=== PATIENT | female | born 1940 | race Caucasian/White ===

== ENCOUNTER 2016-09-25 09:07 | Outpatient (CLI) ==
[2015-10-11 08:43] VITALS: BMI 21.6
--- NOTE | 2016-09-26 10:23 | MAMMO ---
EXAM: Digital screening mammogram HISTORY: Screening COMPARISON: 09/21/2015 FINDINGS: Digital MLO and CC views of the right and left breast were performed. There are scatter ed fibroglandular densities. Stable benign bilateral calcifications. There is no evidence for mass , asymmetry, distortion, or suspicious calcifications in either breast. IMPRESSION: 1. No evidence of malignancy in the right or left breast. 2. Annual screening mammogram is recommended in one year. BIRADS category 2, benign
== END 2016-09-25 09:08 | disposition home or self-care (01) ==
LOC: RAD 09:07
PROVIDERS: ATTEND Internal Medicine
DX: Z12.31 Encounter for screening mammogram for malignant neoplasm of breast (principal)

== ENCOUNTER 2016-11-21 13:49 | Outpatient (CLI) | payer OTHER ==
[2015-10-11 08:43] VITALS: BMI 21.6
--- NOTE | 2016-11-21 14:31 | DI ---
Exam: Lumbar spine complete with obliques. HISTORY: Low back pain. Comparison: 01/22/2008. Findings: Anterior, lateral, coned-down and bilateral oblique images of the lumbar spine are submit carisa. These demonstrate five [id number], lumbarized vertebrae with no compression fracture or l isthesis. There is multilevel moderate degenerative disc and facet arthropathy. The facet joints a ppear grossly aligned and intact. Atherosclerotic calcifications are noted. Impressions: Moderate degenerative disc and facet arthropathy in the lumbar spine with no compressi on fracture or listhesis. Atherosclerosis.
== END 2016-11-21 13:50 | disposition home or self-care (01) ==
LOC: RAD 13:49
PROVIDERS: ATTEND Physical Medicine & Rehabilitation
DX: M54.5 Low back pain (principal)

== ENCOUNTER 2016-12-27 11:00 | Outpatient (RCR) ==
[2015-10-11 08:43] VITALS: BMI 21.6
--- NOTE | 2016-12-19 11:01 | RS.OPPTEV2 ---
Date of Note: 12/18/16 Visit #: 1 Date of Evaluation: 12/18/16 Payer Source: MEDICARE Treatment Diagnosis: Bilateral hip and back pain History of Condition/Mechanism of Injury:: Patient reports onset of hip and back pain in June 2016 with no injury. Does report a fall on her tailbone, resulting in a coccyx fracture in September 2015. Prior Level of Function.....Patient was independent with: ADL's, Self Care, Caregiving, Ambulation/Mobility, Community Integration/Access Level of Function: Patient works out a few times a week at [employer]. Functional Limitations: Sleep, ADL's, Sitting, Standing, Bending, Ambulation Current Subjective/complaints:: Patient reports low back and hip pain. States right hip is worse than the left. She denies tingling or numbness in the LE's. States her pain is bad in the morning, to where she can hardly walk. States she does better as she gets moving around. States being in one position, such as sitting, cause pain and stiffness. States her sleep is interrupted at night. Reports only getting about half a nights sleep. Reports she wakes up with pain. Reports no recent falls. States she used to be able to walk a few miles on a treadmill, but does not tolerate walking that long now due to pain and fatigue in the back/hips. Medical History Medical History: Hypertension, COPD, Arthritis Surgical History: Cholecystectomy, Hysterectomy Smoking Status: Current every day smoker Hx Home Medications: Daypro Patient's Goals: Her goal is to get relief of back and and hip pain. Pain Assessment - Pain Description Pain Location: hip and low back pain Current Pain Intensity: not rated Worst Pain Intensity: 10/10 Functional Outcome Measure Oswestry LBP: 46 - G Codes & Severity Modifier G Codes & Modifier: Mobility current CK. Mobility goal CI Source of G Code score: Oswestry LBP scale Observation - Observation Posture: Forward Head, Increased Thoracic Kyphosis, Decreased Lumbar Lordosis, Posterior Pelvic Tilt Gait - Gait Pattern General Gait Pattern Observation: No Deviations/Normal - ROM Comments: Lumbar AROM is WFL's. Bilateral LE AROM is also WFL's. - Strength Trunk Lateral Flexion: 4 Good Trunk Rotation: 4 Good Comments: Left hip generally 4/5 throughout. All else of bilateral LE strength 4+ to 5/5 throughout. - Special Tests ALEAH Test: Negative Right, Positive Left SLR Test: Negative Left, Negative Right Seated Dural Stretch Test: Negative Left, Negative Right SI Joint Compression: Negative Palpation Comments:: Patient reports no tenderness with palpation throughout the lumbar spine, paraspinals, or SI joints. Reports no tenderness to either greater trochanter. Sensation - Sensation Comments: intact throughout bilateral LE's. Additional Comments: Additional Comments: SLR in supine: right 50 degrees, left 40-45 degrees. Left LE appears shorter in supine. This leg lenght difference is reduced with stretching to the left HS. Interventions - Exercise/Activities/Manual Therapy Exercises/Activities: Instructed patient in HS and piriformis stretch and resisted hip abduction with green theraband. Manual Therapy: NA HOME EXERCISE PROGRAM: HS and piriformis stretch and resisted hip abduction with green theraband. - Charges Total Direct Minutes: 45 mins Total Treatment Time: 45 mins Procedures billed for this date of service:: EVAL Low Assessment Assessment: Patient presents to therapy with a diagnosis of Low pelvic pain with bilateral radiation. She reports back and bilateral hip pain. States the right hip is worse than the left. She exhibits an imbalance in LE strength and muscle length. Left HS is tighter and left hip is weaker than the right. She demonstrates potential to benefit from stretching to the low back and LE's, and strengthening to the hips and lumbar/pelvis for increased stability. Patient Education: Education of diagnosis, Body/Joint mechanics, Home Exercise Program, Activity Modification, Education of Plan of Care Rehab Potential: Good Short Term Goals Goal #1: Pt independent and compliant with HEP. Goal to be met by: 01/02/17 Goal #2: Bilateral SLR in supine to 50-55 degrees. Goal to be met by: 01/02/17 Goal #3: Left hip flexion 4+/5. Goal to be met by: 01/02/17 Alf Goals Goal #1: Pt independent in HEP and education of back safety/body mechanics. Goal to be met by: 01/28/17 Goal #2: Score on Oswestry LBP scale improved to 20. Goal to be met by: 01/28/17 Goal #3: Pt able to sleep 6 hours per night without interruption from back/hip pain. Goal to be met by: 01/28/17 Goal #4: Pt able to tolerate prolonged sitting with only minimal back/hip discomfort Goal to be met by: 01/28/17 Plan - Treatment to be Provided Procedures: Therapeutic Exercises, Therapeutic Activity, Patient Education Modalities: Electrical Stimulation, Ultrasound/Phonophoresis, Cryotherapy, Hot Packs - Treatment Plan Frequency: 3 X week Duration: 4 weeks ORDER # VISITS AND/OR THROUGH DATE: 01/28/17 - Treatment Code (1) Hip pain Code(s): M25.559 - PAIN IN UNSPECIFIED HIP Qualifiers: Laterality: bilateral Qualified Code(s): M25.551 - Pain in right hip; M25.552 - Pain in left hip (2) SI (sacroiliac) joint dysfunction Code(s): M53.3 - SACROCOCCYGEAL DISORDERS, NOT ELSEWHERE CLASSIFIED Comments: M53.2X7
--- NOTE | 2016-12-20 12:05 | RS.OPPTDN ---
Subjective Date of Note: 12/20/16 Visit #: 2 Date of Evaluation: 12/18/16 Payer Source: MEDICARE Treatment Diagnosis: Bilateral hip and back pain Current Subjective/complaints:: Reports pain around S-I and into hips after sitting long periods or fwhen getting out of bed in the morning. Pain Assessment - Pain Description Pain Location: hip and low back pain Current Pain Intensity: mild, no pain after treatment - Treatment Parameters/Method Applied: [id number] @ 1.5w/cm2 to the bilateral lowback, S-I joint and upper glut areas. Patient Position: Right Sidelying Interventions - Exercise/Activities/Manual Therapy Exercises/Activities: [id number]. Patient assisted with hamstring, piriformis, SKTC , and trunk rotation. MET with isometric hip extension on the right. Resisted hip abduction with green theraband. Isometric hip adduction. Isometric hip flexion. Bridging. Total minutes of Exercise: 25mins Manual Therapy: NA HOME EXERCISE PROGRAM: HS and piriformis stretch and resisted hip abduction with green theraband. Isometric hip flexion. Isometric hip add. Bridging. - Objective Findings Observations,measurements,etc.: Patient demos right LE longer that left by approx 1/2 inch, resolved with MET. - Charges Total Direct Minutes: 39mins Total Treatment Time: 40mins Procedures billed for this date of service:: EX2, US Assessment: Patient motivated to work on HEP. Verbalizes understanding of patient education. Patient Education: Education of diagnosis, Body/Joint mechanics, Home Exercise Program, Home Safety, Activity Modification Comments: Patient education of dx, body mechanics, safety, and HEP. Patient given copies of HEP. Patient demonstrates compliance with HEP?: Yes Short Term Goals Goal #1: Pt independent and compliant with HEP. Goal to be met by: 01/02/17 Progress towards Goal:: Progressing Goal #2: Bilateral SLR in supine to 50-55 degrees. Goal to be met by: 01/02/17 Goal #3: Left hip flexion 4+/5. Goal to be met by: 01/02/17 [place] [employer] Member Goals Goal #1: Pt independent in HEP and education of back safety/body mechanics. Goal to be met by: 01/28/17 Goal #2: Score on Oswestry LBP scale improved to 20. Goal to be met by: 01/28/17 Goal #3: Pt able to sleep 6 hours per night without interruption from back/hip pain. Goal to be met by: 01/28/17 Goal #4: Pt able to tolerate prolonged sitting with only minimal back/hip discomfort Goal to be met by: 01/28/17 Plan PLAN OF CARE EXPIRES ON:: 01/28/17 ORDER # VISITS AND/OR THROUGH DATE: 01/28/17 PLAN: Progress Exercises (Continue modalities as needed while progressing exercise increase functional activity level.)
--- NOTE | 2016-12-24 12:03 | RS.OPPTDN ---
Subjective Date of Note: 12/24/16 Visit #: 3 Date of Evaluation: 12/18/16 Payer Source: MEDICARE Treatment Diagnosis: Bilateral hip and back pain Current Subjective/complaints:: Patient reports pain in the right hip is better , but pain is aggravated in the left hip since last session. Reports she is working on HEP and continues to go to the gym. Pain Assessment - Pain Description Pain Location: hip and low back pain Current Pain Intensity: mild to mod discomfort left today, mild after treatment - Treatment Modality: Ultrasound Parameters/Method Applied: [id number] at 1.5w/cm2 to the bilateral lower lumbar paraspinals, S-I joints, and bilateral mid to upper gluteal areas with focus on left today. Patient Position: Right Sidelying Interventions - Exercise/Activities/Manual Therapy Exercises/Activities: [id number]. Patient assisted with hamstring and SKTC stretching only. MET with left isometric hip extension today, which resloves leg length difference. Isometric hip adduction. Isometric hip flexion. Bridging. Total minutes of Exercise: 15mins Manual Therapy: NA HOME EXERCISE PROGRAM: HS and piriformis stretch and resisted hip abduction with green theraband. Isometric hip flexion. Isometric hip add. Bridging. - Charges Total Direct Minutes: 29mins Total Treatment Time: 32mins Procedures billed for this date of service:: US, EX Assessment: Reduced exercise session today due to patients reports of increased hip pain. Advised patient to continue to work on bridging for pelvic alignment. Patient Education: Body/Joint mechanics, Home Exercise Program, Activity Modification Comments: Patient education of body mechanics, safe lifting, and HEP. Patient demonstrates compliance with HEP?: Yes Short Term Goals Goal #1: Pt independent and compliant with HEP. Goal to be met by: 01/02/17 Progress towards Goal:: Progressing Goal #2: Bilateral SLR in supine to 50-55 degrees. Goal to be met by: 01/02/17 Goal #3: Left hip flexion 4+/5. 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 Goal to be met by: 01/28/17 Goal #2: Score on Oswestry LBP scale improved to 20. Goal to be met by: 01/28/17 Goal #3: Pt able to sleep 6 hours per night without interruption from back/hip pain. Goal to be met by: 01/28/17 Progress towards goal: No Change (Reports she did not sleep well last night.) Goal #4: Pt able to tolerate prolonged sitting with only minimal back/hip discomfort Goal to be met by: 01/28/17 Plan PLAN OF CARE EXPIRES ON:: 01/28/17 ORDER # VISITS AND/OR THROUGH DATE: 01/28/17 PLAN: Progress Exercises (Continue modalities and progress exercise to reduce pain and increase functional activity level.)
--- NOTE | 2016-12-27 12:03 | RS.OPPTDN ---
Subjective Date of Note: 12/27/16 Visit #: 4 Date of Evaluation: 12/18/16 Payer Source: MEDICARE Treatment Diagnosis: Bilateral hip and back pain Current Subjective/complaints:: Patient denies LBP today. She reports bilateral lateral hip pain being aggravated today. Reports she is working on HEP and reports pain resolved after modalities and stretching. Pain Assessment - Pain Description Pain Location: hip and low back pain Current Pain Intensity: mod bilateral hip pain, no pain following treatment - Treatment Modality: Ultrasound Parameters/Method Applied: 10mins total. US at 1.5w/cm2 x5mins to each lateral hip joint area prior to EX. Patient in side-lying for each US. Patient Position: Left Sidelying Interventions - Exercise/Activities/Manual Therapy Exercises/Activities: [id number]. Patient assisted with hamstring and SKTC stretching. Gentle piriformis and ITB stretching. Isometric hip adduction. Isometric hip flexion. Bridging. Began standing ITB stretching. Paitent education of safety with ADL's and alternate hamstring stretching. Patient given copy of new exercise. Total minutes of Exercise: 15mins Manual Therapy: NA HOME EXERCISE PROGRAM: HS and piriformis stretch and resisted hip abduction with green theraband. Isometric hip flexion. Isometric hip add. Bridging. - Charges Total Direct Minutes: 25mins Total Treatment Time: 30mins Procedures billed for this date of service:: US, EX Assessment: Patient appears to be consisitently working on HEP and reports LBP has resolved. She should benefit from US to lateral hip joints and gentle ITB stretching. Patient Education: Body/Joint mechanics, Home Exercise Program, Activity Modification Patient demonstrates compliance with HEP?: Yes Short Term Goals Goal #1: Pt independent and compliant with HEP. Goal to be met by: 01/02/17 (100%) Progress towards Goal:: Met Goal #2: Bilateral SLR in supine to 50-55 degrees. Goal to be met by: 01/02/17 Progress towards Goal:: Progressing Goal #3: Left hip flexion 4+/5. Goal to be met by: 01/02/17 Progress towards Goal:: Progressing It Security Project Manager Goals Goal #1: Pt independent in HEP and education of back safety/body mechanics. Goal to be met by: 01/28/17 Progress towards goal: Progressing Goal #2: Score on Oswestry LBP scale improved to 20. Goal to be met by: 01/28/17 Goal #3: Pt able to sleep 6 hours per night without interruption from back/hip pain. Goal to be met by: 01/28/17 Progress towards goal: Progressing Goal #4: Pt able to tolerate prolonged sitting with only minimal back/hip discomfort Goal to be met by: 01/28/17 Progress towards goal: Progressing Plan PLAN OF CARE EXPIRES ON:: 01/28/17 ORDER # VISITS AND/OR THROUGH DATE: 01/28/17 PLAN: Progress Exercises (Continue modalities and progress exercise to reduce pain and increase functional activity level.)
== END 2016-12-29 ==
PROVIDERS: ATTEND Physical Medicine & Rehabilitation
DX: R10.2 Pelvic and perineal pain (principal); M25.552 Pain in left hip; M25.551 Pain in right hip; M53.2X7 Spinal instabilities, lumbosacral region; M53.3 Sacrococcygeal disorders, not elsewhere classified

== ENCOUNTER 2017-02-18 09:05 | Outpatient (CLI) ==
[2015-10-11 08:43] VITALS: BMI 21.6
--- NOTE | 2017-02-18 13:51 | MRI ---
EXAM: MRI lumbar spine without IV contrast. DATE: 18 February 2017. HISTORY: Low back pain. TECHNIQUE: Sagittal and axial T1W and T2W sequences of the lumbar spine along with sagittal IR and c oronal T2W sequences were obtained using 1.2 Xi magnet. No IV contrast. COMPARISON: LS spine series [address] L-spine [address] chest 20 December 2014.. FINDINGS: There are five [id number]-jzysefp lumbar vertebra. No lumbar scoliosis is detected. No acut e lumbar fracture, subluxation, osseous malignancy, or pars interarticularis defect is demonstrated. Prominent osteophytes are identified at L1-2, L4-5, and L5-S1, with smaller osteophytes at several o ther levels. Lumbar vertebra are normal in height. T2W/T1W bone marrow signal is heterogeneous due to areas of fatty infiltration and degenerative endplate changes. Mild disc space narrowing is detec carisa at L4-5 and L5-S1. Small, chronic Schmorl's nodes are seen at L2, L3, L4, L5. No sacral fracture or stress reaction is apparent. SI joints are unremarkable. Conus medullaris terminates at L2. Vis ible spinal cord is normal. No retroperitoneal lymphadenopathy, paraspinal mass, or aortic aneurysm is detected. Atherosclerotic plaques are present within the aortic and common iliac artery garcia. Paraspinal musculature is symm etric bilaterally. Visible portions of the liver, spleen, adrenal glands and kidneys reveal no defin itive malignancy. Note: No IV contrast. A T2W bright, T1W dark, 2.1 mm focus in the medial cortex upper pole right kidney is likely a benign cyst. CBD is 9.8 mm diameter. No choledocholithiasis or intraluminal CBD mass is detected. Gallbladder is not visible. Segmental analysis: T11-12: Normal. T12-L1: Normal. L1-2: Normal. L2-3: Minimal concentric disc bulge, mild bilateral facet arthropathy, and mild ligamentum flavum hy pertrophy cause moderate central canal stenosis and minor bilateral inferior foraminal encroachment. L3-4: Small concentric disc bulge, moderate bilateral facet arthropathy, and marked ligamentum flavu m hypertrophy cause severe central canal stenosis and mild bilateral foraminal stenoses. L4-5: Large concentric disc bulge, mild facet arthropathy, and mild ligamentum flavum hypertrophy ca use moderate central canal stenosis and moderate bilateral foraminal stenoses. L5-S1: Small concentric disc bulge and mild left facet arthropathy cause minor right and moderate le ft foraminal stenoses. Left L5 nerve root contacts the disc bulge in the foramen. IMPRESSIONS: 1. L-spine marked spondylosis, mild/moderate facet arthropathy, and multilevel DDD. 2. Multilevel central canal stenoses (L2-3: Moderate. L3-4: evere. L4-5: Moderate). 3. Multilevel foraminal stenoses. Left L5 nerve roots compromised in the foramen and may be a sourc e for pain/radiculopathy. 4. Bone marrow fatty infiltration (mild). 5. L-spine small, old Schmorl's nodes. 6. Marked aortic and iliac artery ASVD. 7. Right kidney benign-appearing cortical cyst. 8. 9.8 mm CBD -- normal for post cholecystectomy.
== END 2017-02-18 09:06 | disposition home or self-care (01) ==
LOC: RAD 09:05
PROVIDERS: ATTEND Physical Medicine & Rehabilitation
DX: M54.5 Low back pain (principal)

== ENCOUNTER 2017-09-27 09:33 | Outpatient (CLI) ==
[2015-10-11 08:43] VITALS: BMI 21.6
--- NOTE | 2017-09-27 11:06 | MAMMO ---
EXAM: Digital screening mammogram with tomosynthesis HISTORY: Screening COMPARISON: 09/25/2016 FINDINGS: Digital MLO and CC views of the right and left breast were performed. Tomosynthesis was performed. Computer aided detection utilized. There are scattered fibroglandular densities. Benign bi lateral calcifications. There is no evidence for mass, asymmetry, distortion, or suspicious calcifica tions in either breast. IMPRESSION: 1. No evidence of malignancy in the right or left breast. 2. Annual screening mammogram is recommended in one year. BIRADS category 2, benign
== END 2017-09-27 09:34 | disposition home or self-care (01) ==
LOC: RAD 09:33
PROVIDERS: ATTEND Internal Medicine
DX: Z12.31 Encounter for screening mammogram for malignant neoplasm of breast (principal)
CPT/HCPCS: 77067

== ENCOUNTER 2017-10-14 10:10 | Inpatient (IN) | payer OTHER ==
[2017-10-14] MEDS ORDERED: DUONEB NEB ONE (10:12)
--- NOTE | 2017-10-14 10:19 | ED.PDOC ---
General ED Provider: Dr. SHEILA STALEY Chief Complaint: Shortness of Air Stated Complaint: Short of Air Time Seen by Physician: 10:10 Mode of Arrival: Walk-In Information Source: Patient Exam Limitations: No limitations Primary Care Provider: FERNANDEZ VILLAGOMEZ Nursing and Triage Documentation Reviewed and Agree: Yes Does patient meet sepsis criteria?: No System Inflammatory Response Syndrome: Pulse >90 BPM, Resp >20/Minute Sepsis Protocol: For patient's 13 years and over: Temp is 96.8 and below OR 101 and greater Pulse >90 BPM Resp >20/minute Acutely Altered Mental Status Are patient's symptoms suggestive of a new infection, such as: -Pneumonia -Skin, Soft Tissue -Endocarditis -UTI -Bone, Joint Infection -Implantable Device -Acute Abdominal Infection -Wound Infection -Meningitis -Blood Stream Catheter Infection -Unknown Review of Systems - Review Of Systems Constitutional: Reports: Weakness (Says from [place] - not eating well; is hungry now) Respiratory: Reports: Short of air Cardiac: Reports: No symptoms : Reports: No symptoms All Other Systems: Reviewed and Negative Past Medical History - Past Medical History Endocrine: Reports: None Cardiovascular: Reports: Hypertension Respiratory: Reports: Bronchitis, Pneumonia Hematological: Reports: None Gastrointestinal: Reports: Diverticulitis Genitourinary: Reports: None Neuro/Psych: Reports: Anxiety Musculoskeletal: Reports: None Cancer: Reports: None - Surgical History General Surgical History: Reports: Hysterectomy, Cholecystectomy, Other ( hemorrhoidectomy) - Family History Family History: Reports: Unknown - Social History Smoking Status: Current some day smoker, Light tobacco smoker Hx Substance Use: No Alcohol Screening: None Physical Exam - Physical Exam Appearance: Well-appearing ENT: Ears normal, Nose normal Neck: Supple Respiratory: Airway patent, Breath sounds equal, Breath sounds diminished, Wheezes Cardiovascular: RRR, Pulses normal GI/: Soft, Nontender, No masses Musculoskeletal: Normal strength, ROM intact, No edema Skin: Warm, Dry, Normal color Neurological: Sensation intact, Motor intact, Alert, Oriented Psychiatric: Affect appropriate, Mood appropriate Interpretation - Radiology Interpretation Radiology Interpretation By: ED Physician Radiology Results: Positive (Bilateral perihilar infiltrates) Exam Interpreted: Portable CXR - EKG Interpretation Rate: Normal Rhythm: Sinus Ectopy: None Bock: NL ST Segment: Normal Physician Notification - Case Discussed Physician Notified: Dr Villagomez Time of Notification: 12:20 (Discussed pt findings; admission indicated for Pneumonia/Short of Air) Critical Care Note - Critical Care Note Total Time (mins): 45 (Short of Air) Comments: Short of Air; saw Saturday - started on ABX - more difficulty today led to ER visit. CXR read by radiologist = Bilateral perihilar pneumonia. Admitted for treatment. Course - Course Hematology/Chemistry: 10/14/17 11:30 10/14/17 11:30 Orders, Labs, Meds: Lab Review 10/14/17 10/14/17 10/14/17 10:16 11:30 11:30 WBC 11.92 H RBC 4.67 Hgb 14.3 Hct 41.5 MCV 88.9 MCH 30.6 MCHC 34.5 RDW Coeff of [place] 13.7 Plt Count 261 Immature Gran % (Auto) 0.5 Neut % (Auto) 88.8 Lymph % (Auto) 4.9 L Harris % (Auto) 5.6 Eos % (Auto) 0.0 Baso % (Auto) 0.2 Immature Gran # (Auto) 0.1 Neut # (Auto) 10.6 H Lymph # (Auto) 0.6 [place] # (Auto) 0.7 Eos # (Auto) 0.0 Baso # (Auto) 0.0 Puncture Site Rrad O2 Saturation 91.0 L ABG pH 7.472 H ABG pCO2 41.9 ABG pO2 57.0 L* ABG HCO3 30.7 H ABG Total CO2 32 H ABG Base Excess 7 H [place] Test + FiO2 % 21.0 Sodium 127 L Potassium 3.0 L Chloride 86 L Carbon Dioxide 32 H Anion Gap 12.0 BUN 9 Creatinine 0.58 L Estimated GFR (MDRD) 101.00 BUN/Creatinine Ratio 15.51 Glucose 117 H Calcium 9.3 Total Bilirubin 0.9 AST 14 L ALT 20 Alkaline Phosphatase 71 Total Protein 6.4 Albumin 3.3 L Globulin 3.1 Albumin/Globulin Ratio 1.06 Orders Category Date Time Status ADMIT PATIENT INPATIENT .TO [facility] (MONITORED BED) ADMISSION 10/14/17 12: 44 Active ABG DRAW REQUEST Stat CARDIO 10/14/17 10:16 Completed EKG-(ED ONLY) Stat CARDIO 10/14/17 10:40 Completed EKG-(IP & OP ONLY) DAILY CARDIO 10/15/17 06:00 Ordered EKG-(IP & OP ONLY) DAILY CARDIO 10/16/17 06:00 Ordered NEBULIZER TREATMENT Routine CARDIO 10/14/17 12:34 Active NEBULIZER TREATMENT Stat CARDIO 10/14/17 10:41 Completed OXYGEN Routine CARDIO 10/14/17 12:28 Active ACTIVITY .BR with BRP CARE 10/14/17 12:26 Active INTAKE & OUTPUT Q8HR CARE 10/14/17 12:26 Completed TELEMETRY MONITORING TELE CARE 10/14/17 12:44 Active VITAL SIGNS Q8HR CARE 10/14/17 12:26 Completed REGULAR DIET DIETARY 10/14/17 Lunch Ordered ABG Stat LAB 10/14/17 10:16 Completed CBC W/ AUTO DIFF DAILY@0600 LAB 10/15/17 06:00 Ordered CBC W/ AUTO DIFF DAILY@0600 LAB 10/16/17 06:00 Ordered CBC W/ AUTO DIFF Stat LAB 10/14/17 11:30 Completed COMPREHENSIVE METABOLIC PANEL DAILY@0600 LAB 10/15/17 06:00 Ordered COMPREHENSIVE METABOLIC PANEL DAILY@0600 LAB 10/16/17 06:00 Ordered COMPREHENSIVE METABOLIC PANEL Stat LAB 10/14/17 11:30 Completed Albuterol Sulfate 0.083% Neb [Albuterol 0.083% Neb] MEDS 10/14/17 14:00 Active 1 vial NEB RTQID Azithromycin Inj [Zithromax] 500 mg MEDS 10/14/17 13:00 Active 0.9 % Sodium Chloride [Sodium Chloride] 250 ml IV DAILY Ceftriaxone Sodium [Rocephin] MEDS 10/14/17 12:46 Discontinued 1 gm .ROUTE .STK-MED ONE Ceftriaxone Sodium [Rocephin] 1 gm MEDS 10/14/17 12:30 Active 0.9 % Sodium Chloride [Sodium Chloride] 50 ml IV DAILY Enoxaparin Sodium [Lovenox] MEDS 10/15/17 09:00 Active 40 mg SUBCUT DAILY Ipratropium/Albuterol Neb [Duoneb] MEDS 10/14/17 10:12 Discontinued 1 vial NEB .STK-MED ONE Ipratropium/Albuterol Neb [Duoneb] MEDS 10/14/17 10:41 Discontinued 1 vial NEB ONCE STA Losartan/Hydrochlorothiazide [Hyzaar 50-12.5 mg Tab] MEDS 10/14/17 13:00 Discontinued 1 tab PO DAILY Losartan/Hydrochlorothiazide [Losartan-Hctz 100-25 mg MEDS 10/14/17 12:45 Discontinued Tab] 0.5 each PO 0600 Methylprednisolone Sod Succ/Pf [Solu-Medrol 40 mg] MEDS 10/14/17 13:00 Active 40 mg IVP Q8HR Omeprazole [Prilosec] MEDS 10/14/17 12:34 Active 20 mg PO QDAC PRN Sodium Chloride 0.9% [Sodium Chloride] 1,000 ml MEDS 10/14/17 12:30 Active IV 75 mls/hr RESUSCITATION STATUS Routine OTHERS 10/14/17 12:26 Ordered CHEST, 1V AP ONLY Stat RADS 10/14/17 10:47 Completed Medications Generic Name Dose Route Start Last Admin Trade Name Freq PRN Reason Stop Dose Admin Albuterol Sulfate 1 vial 10/14/17 14:00 10/14/17 14:23 Albuterol 0.083% Neb NEB 1 vial RTQID YESSENIA Administration Enoxaparin Sodium 40 mg 10/15/17 09:00 Lovenox SUBCUT DAILY YESSENIA Ceftriaxone Sodium 1 gm/ 50 mls @ 75 mls/hr 10/14/17 12:30 10/14/17 12:55 Sodium Chloride IV 75 mls/hr DAILY YESSENIA Administration Sodium Chloride 1,000 mls @ 75 mls/hr 10/14/17 12:30 10/14/17 13:55 Sodium Chloride IV 75 mls/hr .[id number] YESSENIA Administration Azithromycin 500 mg/ Sodium 250 mls @ 125 mls/hr 10/14/17 13:00 10/14/17 13: 57 Chloride IV 10/16/17 10:59 125 mls/hr DAILY YESSENIA Administration Methylprednisolone Sodium Succinate 40 mg 10/14/17 13:00 Solu-Medrol 40 Mg IVP Q8HR YESSENIA Non-Formulary Medication 5 mg 10/14/17 19:00 Bisoprolol Fumarate [Bisoprolol Fumarate] PO 1900 YESSENIA Non-Formulary Medication 0.5 each 10/15/17 06:00 Losartan/Hydrochlorothiazide [Losartan-Hctz 100-25 Mg Tab] PO 0600 YESSENIA Omeprazole 20 mg 10/14/17 12:34 Prilosec PO QDAC PRN PEPTIC ULCER Discontinued Medications Generic Name Dose Route Start Last Admin Trade Name Freq PRN Reason Stop Dose Admin Albuterol/Ipratropium 1 vial 10/14/17 10:41 10/14/17 10:42 Duoneb NEB 10/14/17 10:42 Not Given ONCE STA HCTZ/Losartan Potassium 1 tab 10/14/17 13:00 Hyzaar 50-12.5 Mg Tab PO DAILY YESSENIA Non-Formulary Medication 0.5 each 10/14/17 12:45 Losartan/Hydrochlorothiazide [Losartan-Hctz 100-25 Mg Tab] PO 0600 YESSENIA Vital Signs: Temp Pulse Resp BP Pulse Ox 10/14/17 12:22 99.6 F 71 18 96 10/14/17 10:11 99.2 F 91 H 25 H 163/67 H 93 L Departure - Departure Time of Disposition: 12:39 Disposition: ADMITTED INPATIENT Discharge Problem: Pneumonia Qualifiers: Pneumonia type: due to unspecified organism Laterality: bilateral Lung location : lower lobe of lung Qualified Code(s): J18.1 - Lobar pneumonia, unspecified organism Condition: Stable Pt referred to PMD for follow-up: Yes (Follow with Dr. Villagomez after discharge) IPMP verified?: No (No narcotics prescribed) Allergies/Adverse Reactions: Allergies codeine Adverse Reaction (Verified 10/14/17 10:19) Sulfa (Sulfonamide Antibiotics) Adverse Reaction (Verified 10/14/17 10:19) Home Medications: Ambulatory Orders Albuterol Sulfate [Proair Hfa] 1 puff INH DIRECTED PRN 08/07/13 Loratadine [Claritin] 1 tab PO DAILY PRN 08/07/13 Omeprazole [Prilosec] 1 tab PO PRN PRN 08/07/13 Losartan/Hydrochlorothiazide [Losartan-Hctz 100-25 mg Tab] 0.5 each PO DAILY 03/16 Bisoprolol Fumarate 5 mg PO QPM 10/14/17 Cephalexin [Keflex] 500 mg PO Q8HR 10/14/17 Prednisone 10 mg PO DAILYWM 10/14/17
[2017-10-14] MEDS ORDERED: DUONEB NEB STA (10:41)
--- NOTE | 2017-10-14 11:06 | DI ---
EXAM: Single view of the chest. History: Short of breath Comparison: Chest radiograph 12/10/2014, chest CT 12/20/2014 Findings: Emphysema. Heart size is normal. Atherosclerotic vascular calcifications. Bilateral per ihilar infiltrates. No definite pleural fluid and no pneumothorax. No acute osseous abnormalities. Impression: 1. Bilateral perihilar infiltrates suspicious for pneumonia. Lymphadenopathy is not excluded. Foll ow-up recommended to assure resolution. If this does not resolve, then recommend contrast enhanced c hest CT. 2. Emphysema.
[2017-10-14] MEDS ORDERED: PRILOSEC PO PRN (12:34)
[2017-10-14] MEDS ORDERED: HYDROCHLOROTHIAZIDE PO SCH (12:45)
[2017-10-14] MEDS ORDERED: LOSARTAN PO SCH (12:45)
[2017-10-14] MEDS ORDERED: [UNRECOGNIZED DRUG - OTHER] PO SCH (12:45)
[2017-10-14] MEDS ORDERED: ROCEPHIN ONE (12:46)
[2017-10-14] MEDS: ROCEPHIN 1 GM in SODIUM CHLORIDE 50 ML IV SCH (12:55)
[2017-10-14] MEDS ORDERED: HYZAAR 50-12.5 MG TAB PO SCH (13:00)
[2017-10-14] MEDS: SODIUM CHLORIDE 1,000 ML IV SCH (13:55)
[2017-10-14] MEDS: ZITHROMAX 500 MG in SODIUM CHLORIDE 250 ML IV SCH (13:57)
[2017-10-14 14:04] VITALS: BMI 20.2
[2017-10-14] MEDS: ALBUTEROL 0.083% NEB NEB SCH ×2 (14:23→20:05)
[2017-10-14] MEDS: SOLU-MEDROL 40 MG IVP SCH ×2 (17:53→21:03)
[2017-10-14] MEDS: BISOPROLOL FUMARATE 5 MG PO SCH (19:39)
[2017-10-15] MEDS ORDERED: XANAX PO STA (01:36)
[2017-10-15] MEDS: SODIUM CHLORIDE 1,000 ML IV SCH ×2 (04:40→20:09)
[2017-10-15] MEDS: SOLU-MEDROL 40 MG IVP SCH (05:21)
[2017-10-15] MEDS: ALBUTEROL 0.083% NEB NEB SCH (05:40)
[2017-10-15] MEDS: LOSARTAN PO SCH (06:02)
[2017-10-15] MEDS: [UNRECOGNIZED DRUG - OTHER] PO SCH (06:02)
[2017-10-15] MEDS: HYDROCHLOROTHIAZIDE PO SCH (06:02)
[2017-10-15] MEDS ORDERED: ATIVAN PO STA (08:06)
[2017-10-15] MEDS: ROCEPHIN 1 GM in SODIUM CHLORIDE 50 ML IV SCH (08:37)
[2017-10-15] MEDS: LOVENOX SUBCUT SCH (08:38)
[2017-10-15] MEDS: TUSSIONEX PO SCH ×2 (08:50→21:50)
[2017-10-15] MEDS: ZITHROMAX 500 MG in SODIUM CHLORIDE 250 ML IV SCH (09:26)
[2017-10-15] MEDS: XOPENEX 1.25 MG NEB SCH ×2 (11:07→18:46)
--- NOTE | 2017-10-15 13:27 | PCM.PROG ---
Attending Provider: ATTENDING PROVIDER: Dr. FERNANDEZ VILLAGOMEZ This patient is seen with Reshma Zhao, Nurse Practitioner. DATE OF SERVICE: 10/15/17 SUBJECTIVE: This 77 year old WHITE/ F was hospitalized 10/14/17. The patient is sitting on side of bed. She is alert and is oriented. She didn't sleep well last night, requests steroids to be discontinued. She is not wearing her oxygen. REVIEW OF SYSTEMS: CONSTITUTIONAL: Weakness. No night sweats. No malaise, lethargy. No fever or chills. HEENT: Eyes: No visual changes. No eye pain. No eye discharge. ENT: No runny nose. No epistaxis. No sinus pain. No odynophagia. No congestion. RESPIRATORY: Cough and congestion. No hemoptysis. No shortness of breath. CARDIOVASCULAR: No angina symptoms. No CHF symptoms. No atypical chest pain for CAD. No palpitations. No orthopnea.. GASTROINTESTINAL: No abdominal pain. No nausea or vomiting. No diarrhea or constipation. No hematemesis. No hematochezia. GENITOURINARY: No urgency. No frequency. No dysuria. No hematuria. No obstructive symptoms. No discharge. No pain. No significant abnormal bleeding. MUSCULOSKELETAL: No musculoskeletal pain; no joint swelling. NEUROLOGICAL: Awake, alert, oriented to time, place and person. No headache. No neck pain. No syncope. No seizures. No dizziness. PSYCHIATRIC: Not anxious. No depression. No suicidal thoughts. No homicidal thoughts. SKIN: No rash. No lesions. No wounds. ENDOCRINE: No unexplained weight loss. No weight gain. HEMATOLOGIC/LYMPHATIC: No anemia. No purpura. No petechiae. No prolonged or excessive bleeding. No palpable lymph nodes. PHYSICAL EXAMINATION: GENERAL: The patient is awake, alert and oriented, sitting in bed in no distress. VITAL SIGNS: Temperature 97.6 F, Pulse 67, Respiratory Rate 18, BP 148/68, Pulse Ox 90% HEENT: Head normocephalic, atraumatic. Eyes: Extraocular muscles are intact. Pupils are equal, round and reactive to light and accommodation. Ears: No lesions. Nose appeared normal. Throat: No exudate or erythema. NECK: Supple. No JVD, no carotid bruit. No lymphadenopathy or thyromegaly. LUNGS: Diminished breath sounds bilaterally with rhonchi. Percussion note normal. Chest symmetrical. HEART: S1, S2, no S3. No murmurs. No cyanosis or clubbing. No ascites. Pulses: Dorsalis pedis and posterior tibial pulses +1 to +2 both sides. ABDOMEN: Soft. Non-tender. Bowel sounds active. No CVA tenderness. No mass felt. EXTREMITIES: No edema. Full range of motion of all extremities, equal. NEUROLOGIC: No focal deficit. Cranial nerves II through XII are grossly intact. No headache, no double vision or headache. SKIN: Not dry. Intact. Turgor-normal. LYMPHATIC: No palpable lymph nodes/no lymphedema. MUSCULOSKELETAL: Normal joints with no swelling. Muscle tone is normal. LAB REVIEW: 10/15/17 04:15 10/15/17 04:15 10/15/17 04:15: Sodium 128 L, Potassium 3.5, Chloride 90 L, Carbon Dioxide 32 H , Anion Gap 9.5, BUN 6 L, Creatinine 0.56 L, Estimated GFR (MDRD) 105.00, BUN/ Creatinine Ratio 10.71, Glucose 135 H, Calcium 9.1, Total Bilirubin 0.7, AST 15 , ALT 16, Alkaline Phosphatase 84, Total Protein 6.2, Albumin 3.0 L, Globulin 3.2, Albumin/Globulin Ratio 0.94 10/15/17 04:15: WBC 12.85 H, RBC 4.39, Hgb 13.2, Hct 38.7, MCV 88.2, MCH 30.1, MCHC 34.1, RDW Coeff of [place] 13.5, Plt Count 275, Immature Gran % (Auto) 0.4, Neut % (Auto) 93.3, Lymph % (Auto) 5.2 L, [place] % (Auto) 0.9, Eos % (Auto) 0.0, Baso % (Auto) 0.2, Immature Gran # (Auto) 0.1, Neut # (Auto) 12.0 H, Lymph # ( Auto) 0.7, [place] # (Auto) 0.1 L, Eos # (Auto) 0.0, Baso # (Auto) 0.0 10/14/17 11:30: Sodium 127 L, Potassium 3.0 L, Chloride 86 L, Carbon Dioxide 32 H, Anion Gap 12.0, BUN 9, Creatinine 0.58 L, Estimated GFR (MDRD) 101.00, BUN/ Creatinine Ratio 15.51, Glucose 117 H, Calcium 9.3, Total Bilirubin 0.9, AST 14 L, ALT 20, Alkaline Phosphatase 71, Total Protein 6.4, Albumin 3.3 L, Globulin 3.1, Albumin/Globulin Ratio 1.06 10/14/17 11:30: WBC 11.92 H, RBC 4.67, Hgb 14.3, Hct 41.5, MCV 88.9, MCH 30.6, MCHC 34.5, RDW Coeff of [place] 13.7, Plt Count 261, Immature Gran % (Auto) 0.5, Neut % (Auto) 88.8, Lymph % (Auto) 4.9 L, [place] % (Auto) 5.6, Eos % (Auto) 0.0, Baso % (Auto) 0.2, Immature Gran # (Auto) 0.1, Neut # (Auto) 10.6 H, Lymph # ( Auto) 0.6, [place] # (Auto) 0.7, Eos # (Auto) 0.0, Baso # (Auto) 0.0 10/14/17 10:16: Puncture Site Rrad, O2 Saturation 91.0 L, ABG pH 7.472 H, ABG pCO2 41.9, ABG pO2 57.0 L*, ABG HCO3 30.7 H, ABG Total CO2 32 H, ABG Base Excess 7 H, [place] Test +, FiO2 % 21.0 ASSESSMENT: 1. Bilateral pneumonia 2. Hyponatremia 3. Shortness of breath 4. Anxiety PLAN: 1. Ativan 1 mg tonight, 0.5 mg today. 2. D/C Solu-Medrol. 3. Change Albuterol to Xopenex. 4. Tussionex one teaspoon b.i.d. Plan and coordination of the patient's care discussed in the presence of Clothes Presser and nurse. CONDITION: Stable SCRIBED BY: Tammy RASMUSSEN scribed while in presence of service performed by Dr. Villagomez/Reshma Zhao APRN on 10/15/17 ([id number])
--- NOTE | 2017-10-15 14:45 | PN ---
DATE OF SERVICE: 10/14/17 SUBJECTIVE: The patient was seen and examined three days ago in the office and was given steroids and Keflex. The patient is a smoker. The patient came to the emergency room today with complaint of cough, congestion and low grade fever. The patient has perihilar infiltrate, possibility of bilateral pneumonia. PHYSICAL EXAMINATION: GENERAL: The patient is oriented to time, place and person. HEENT: Head normocephalic, atraumatic. Eyes: Extraocular muscles are intact. Pupils are equal, round and reactive to light and accommodation. Ears: No lesions. Nose appeared normal. Throat: No exudate or erythema. NECK: Supple. No JVD, no carotid bruit. No lymphadenopathy or thyromegaly. LUNGS: Decreased breath sounds with mild wheeze. Percussion note normal. Chest symmetrical. HEART: S1, S2, no S3. No murmurs. No cyanosis or clubbing. No ascites. Pulses: Dorsalis pedis and posterior tibial pulses +1 to +2 both sides. ABDOMEN: Soft. Nontender. Bowel sounds active. No CVA tenderness. No mass felt. EXTREMITIES: No edema. Full range of motion of all extremities, equal. NEUROLOGIC: No focal deficit. Cranial nerves II through XII are grossly intact. No headache, no double vision or headache. SKIN: Not dry. Intact. Turgor - normal. LYMPHATIC: No palpable lymph nodes/no lymphedema. MUSCULOSKELETAL: Normal joints with no swelling. Muscle tone is normal. ASSESSMENT: 1. ACUTE PNEUMONITIS, BILATERAL WITH SEVERE CHRONIC LUNG DISEASE. PLAN: 1. Admit the patient and treat with Rocephin, Zithromax, Steroids and nebs treatment. 2. Counseling for smoking done. CONDITION: Stable. TIME SPENT: More than 30 minutes. Plan and coordination of the patient's care discussed in the presence of nurse. JADEN
[2017-10-15] MEDS: BISOPROLOL FUMARATE 5 MG PO SCH (19:15)
[2017-10-15] MEDS ORDERED: ATIVAN PO SCH (21:00)
[2017-10-16] MEDS: XOPENEX 1.25 MG NEB SCH ×5 (00:40→22:55)
[2017-10-16] MEDS: LOSARTAN PO SCH (06:28)
[2017-10-16] MEDS: HYDROCHLOROTHIAZIDE PO SCH (06:28)
[2017-10-16] MEDS: [UNRECOGNIZED DRUG - OTHER] PO SCH (06:28)
[2017-10-16] MEDS: ROCEPHIN 1 GM in SODIUM CHLORIDE 50 ML IV SCH (08:45)
[2017-10-16] MEDS: K-DUR PO SCH ×3 (08:46→17:17)
[2017-10-16] MEDS: TUSSIONEX PO SCH ×2 (08:48→20:21)
[2017-10-16] MEDS: LOVENOX SUBCUT SCH (08:48)
--- NOTE | 2017-10-16 09:17 | PCM.PROG ---
Attending Provider: ATTENDING PROVIDER: Dr. FERNANDEZ VILLAGOMEZ DATE OF SERVICE: 10/16/17 SUBJECTIVE: This 77 year old WHITE/ F was hospitalized 10/14/17 with pneumonia. Condition seems to be improving. Potassium 3.1. REVIEW OF SYSTEMS: CONSTITUTIONAL: Positive for fatigue, tired feeling, she wants to walk. No night sweats. No malaise, lethargy. No fever or chills. HEENT: Eyes: No visual changes. No eye pain. No eye discharge. ENT: No runny nose. No epistaxis. No sinus pain. No odynophagia. No congestion. RESPIRATORY: No cough, no congestion. No hemoptysis. No shortness of breath. CARDIOVASCULAR: No angina symptoms. No CHF symptoms. No atypical chest pain for CAD. No palpitations. No orthopnea.. GASTROINTESTINAL: Appetite has improved some. No abdominal pain. No nausea or vomiting. No diarrhea or constipation. No hematemesis. No hematochezia. GENITOURINARY: No urgency. No frequency. No dysuria. No hematuria. No obstructive symptoms. No discharge. No pain. No significant abnormal bleeding. MUSCULOSKELETAL: No musculoskeletal pain; no joint swelling. NEUROLOGICAL: Awake, alert, oriented to time, place and person. No headache. No neck pain. No syncope. No seizures. No dizziness. PSYCHIATRIC: Not anxious. No depression. No suicidal thoughts. No homicidal thoughts. SKIN: No rash. No lesions. No wounds. ENDOCRINE: No unexplained weight loss. No weight gain. HEMATOLOGIC/LYMPHATIC: No anemia. No purpura. No petechiae. No prolonged or excessive bleeding. No palpable lymph nodes. PHYSICAL EXAMINATION: GENERAL: The patient is awake, alert and oriented, lying in bed in no distress. VITAL SIGNS: Temperature 97.9 F, Pulse 70, Respiratory Rate 16, BP 172/70, Pulse Ox 98% HEENT: Head normocephalic, atraumatic. Eyes: Extraocular muscles are intact. Pupils are equal, round and reactive to light and accommodation. Ears: No lesions. Nose appeared normal. Throat: No exudate or erythema. NECK: Supple. No JVD, no carotid bruit. No lymphadenopathy or thyromegaly. LUNGS: Decreased breath sounds with mild wheeze. Percussion note normal. Chest symmetrical. HEART: S1, S2, no S3. No murmurs. No cyanosis or clubbing. No ascites. Pulses: Dorsalis pedis and posterior tibial pulses +1 to +2 both sides. ABDOMEN: Soft. Non-tender. Bowel sounds active. No CVA tenderness. No mass felt. EXTREMITIES: No edema. Full range of motion of all extremities, equal. NEUROLOGIC: No focal deficit. Cranial nerves II through XII are grossly intact. No headache, no double vision or headache. SKIN: Warm and dry. Intact. Turgor-normal. LYMPHATIC: No palpable lymph nodes/no lymphedema. MUSCULOSKELETAL: Normal joints with no swelling. Muscle tone is normal. LAB REVIEW: 10/16/17 04:30 10/16/17 04:30 10/16/17 04:30: Sodium 135 L, Potassium 3.1 L, Chloride 95 L, Carbon Dioxide 31 , Anion Gap 12.1, BUN 10, Creatinine 0.57 L, Estimated GFR (MDRD) 103.00, BUN/ Creatinine Ratio 17.54, Glucose 80 L, Calcium 9.1, Total Bilirubin 0.3, AST 13 L , ALT 18, Alkaline Phosphatase 70, Total Protein 5.8, Albumin 2.9 L, Globulin 2.9, Albumin/Globulin Ratio 1.00 10/16/17 04:30: WBC 12.59 H, RBC 4.59, Hgb 13.7, Hct 41.8, MCV 91.1, MCH 29.8, MCHC 32.8, RDW Coeff of [place] 13.8, Plt Count 339, Immature Gran % (Auto) 0.7, Neut % (Auto) 75.3, Lymph % (Auto) 17.2, [place] % (Auto) 5.9, Eos % (Auto) 0.7, Baso % (Auto) 0.2, Immature Gran # (Auto) 0.1, Neut # (Auto) 9.5 H, Lymph # ( Auto) 2.2, [place] # (Auto) 0.7, Eos # (Auto) 0.1, Baso # (Auto) 0.0 ASSESSMENT: 1. BILATERAL PNEUMONIA 2. HYPOKALEMIA BEING TREATED WITH POTASSIUM SUPPLEMENTS PLAN: 1. Discontinue IV fluids 2. PFT 3. CT scan of chest without contrast 4. Continue steroids, antibiotics and nebs 5. Counseling for smoking done 6. K-Dur 20 mEq t.i.d. Plan and coordination of the patient's care discussed in the presence of Starter Cup Powder Mixer and nurse. EDUCATION: Counseling for smoking done. CONDITION: STABLE SCRIBED BY: GWYN AVILA Shook Splicer scribed while in presence of service performed by Dr. FERNANDEZ VILLAGOMEZ on 10/16/17 ([id number])
--- NOTE | 2017-10-16 09:34 | HP ---
DATE OF SERVICE: 10/14/17 REASON FOR HOSPITALIZATION/HISTORY OF PRESENT ILLNESS: This is a 77 year old white female who came to our office last Sadiq with cough , congestion and she was placed on Keflex 500mg orally three times a day as well as Prednisone 10mg orally twice a day. She presented by herself in the emergency room complaining of shortness of breath, worsening cough with congestion. PAST MEDICAL HISTORY: Hypertension LVH COPD Dyslipidemia GERD History of cardiomyopathy Osteoporosis Chronic back pain Right kidney cyst PAST SURGICAL HISTORY: Status post cholecystectomy She receives back injections by Dr. Huff Status post hysterectomy REVIEW OF SYSTEMS: CONSTITUTIONAL: No night sweats. Fatigue . No fever or chills. Generalized weakness. HEENT: Eyes: No visual changes. No eye pain. No eye discharge. ENT: No runny nose. No epistaxis. No sinus pain. No sore throat. No odynophagia. No ear pain. No congestion. RESPIRATORY: Cough, no congestion. No hemoptysis. Shortness of breath. CARDIOVASCULAR: No angina symptoms. No CHF symptoms. No atypical chest pain for CAD. No palpitations. No PND. No orthopnea. GASTROINTESTINAL: No abdominal pain. No nausea or vomiting. No diarrhea or constipation. No hematemesis. No hematochezia. GENITOURINARY: No urgency. No frequency. No dysuria. No hematuria. No obstructive symptoms. No discharge. No pain. No significant abnormal bleeding. MUSCULOSKELETAL: No musculoskeletal pain. No joint swelling. No arthritis. NEUROLOGICAL: No headache. No neck pain. No syncope. No seizures. No dizziness. PSYCHIATRIC: Not anxious. No depression. No suicidal thoughts. No homicidal thoughts. SKIN: No rash. No lesions. No wounds. ENDOCRINE: No unexplained weight loss. No weight gain. HEMATOLOGIC/LYMPHATIC: No anemia. No purpura. No petechiae. No prolonged or excessive bleeding. No palpable lymph nodes. PERSONAL/FAMILY/SOCIAL HISTORY: The patient is a light smoker, daily smoker. No alcohol or illicit drug use. MEDICATIONS: Prilosec 20mg PO PRN Claritin 10mg PO daily PRN ProAir 200 puff one puff INH as directed PRN Losartan 100-25 PO daily Prednisone 10mg PO daily Keflex 500mg PO Q 8 hours Bisoprolol Fumarate 5mg PO QPM ALLERGIES: Codeine Sulfa PHYSICAL EXAMINATION: VITAL SIGNS: Temperature 99.6, heart rate 91, respiratory rate 25, blood pressure 163/67, pulse ox 93% on room air. HEENT: Head normocephalic, atraumatic. Eyes: Extraocular muscles are intact. Pupils are equal, round and reactive to light and accommodation. Ears: No lesions. Nose appeared normal. Throat: No exudate or erythema. NECK: Supple. No JVD, no carotid bruit. No lymphadenopathy or thyromegaly. LUNGS: Clear to auscultation. Percussion note normal. Chest symmetrical. HEART: S1, S2, no S3. No murmurs. No cyanosis or clubbing. No ascites. Pulses: Dorsalis pedis and posterior tibial pulses +1 to +2 bilaterally. ABDOMEN: Soft. Nontender. Bowel sounds active. No CVA tenderness. No mass felt. EXTREMITIES: No edema. Full range of motion of all extremities, equal. NEUROLOGIC: No focal deficit. Cranial nerves II through XII are grossly intact. No headache, no double vision or headache. SKIN: Not dry. Intact. Turgor - normal. LYMPHATIC: No palpable lymph nodes/no lymphedema. MUSCULOSKELETAL: Normal joints with no swelling. Muscle tone is normal. LABS: WBC 11.92, hgb 14.3, hct 41.5, plt count 261, sodium 127, potassium 3.0, BUN 9, creatinine 0.58, glucose 117. Chest x-ray shows bilateral perihilar infiltrates consistent with bilateral pneumonia. ABG's on room air O2 saturation 91, pH 7.472, pCO2 41.9, pO2 57 and bicarb 30.7 and total Co2 32. Base excess of 7. ASSESSMENT: 1. Bilateral pneumonia 2. Shortness of breath 3. COPD 4. Hypertension 5. LVH 6. Dyslipidemia 7. Cardiomyopathy 8. Chronic back pain 9. Smoker PLAN: 1. Will admit 2. Routine Telemetry orders 3. CBC and CMP daily 4. EKG 5. Normal saline at 75cc an hour 6. Rocephin 1 gram IV daily 7. Solu-Medrol 40mg IV Q 12 hours 8. Zithromax 500mg PO daily times 3 days 9. Xopenex NEBS treatment Q 6 hours scheduled 10.Oxygen at 1-2 liters as needed 11.Continue all home medications 12.Regular diet Will follow closely. TIME SPENT: More than 70 minutes. MTDD
[2017-10-16] MEDS: ZITHROMAX 500 MG in SODIUM CHLORIDE 250 ML IV SCH (09:49)
--- NOTE | 2017-10-16 11:12 | CT ---
EXAM: CT chest without contrast. HISTORY: Pneumonia. Shortness of breath. Lymphadenopathy. Cough. COMPARISON: Radiograph 10/14/2017. CT 12/20/2014. TECHNIQUE: Multiple axial images of the chest were obtained without intravenous contrast. Images we re reformatted in the sagittal and coronal planes. FINDINGS: Evaluation for lymphadenopathy is limited by lack of intravenous contrast. Calcified medi astinal and right hilar lymph nodes present. Heart size is upper limits normal. Small pericardial e ffusion noted. Atherosclerotic calcifications are present. Moderate emphysematous changes present b ilaterally. Small pleural effusions present bilaterally. Ground-glass opacities, somewhat nodular a reas are seen in both lungs along with bilateral bronchial thickening. No pneumothorax identified. No acute abnormalities seen in the upper abdomen. Degenerative changes are present in the spine. IMPRESSION: 1. Bilateral ground-glass opacities and bronchial thickening most likely representing pneumonia. Fo llow up within 3 months recommended reassessment. 2. Small pleural effusions. 3. Moderate emphysema.
[2017-10-16] MEDS: SODIUM CHLORIDE 1,000 ML IV SCH (11:14)
[2017-10-16] MEDS: BISOPROLOL FUMARATE 5 MG PO SCH (19:01)
[2017-10-17] MEDS: XOPENEX 1.25 MG NEB SCH (04:50)
[2017-10-17] MEDS: LOSARTAN PO SCH (05:48)
[2017-10-17] MEDS: HYDROCHLOROTHIAZIDE PO SCH (05:48)
[2017-10-17] MEDS: [UNRECOGNIZED DRUG - OTHER] PO SCH (05:48)
[2017-10-17] MEDS: K-DUR PO SCH (08:28)
[2017-10-17] MEDS: ROCEPHIN 1 GM in SODIUM CHLORIDE 50 ML IV SCH (08:29)
[2017-10-17] MEDS: LOVENOX SUBCUT SCH (08:29)
[2017-10-17] MEDS: TUSSIONEX PO SCH (08:29)
--- NOTE | 2017-10-17 09:20 | PN ---
DATE OF SERVICE: 10/15/17 SUBJECTIVE: The patient was seen and examined with the nurse practitioner. The patient's condition is improving. Counseling for smoking done. Condition improving. Pneumonia improving. Continue antibiotics, nebs and steroids. TIME SPENT: More than 30 minutes. Plan and coordination of the patient's care discussed in the presence of nurse. JADEN
[2017-10-17 09:34] VITALS: BP 143/75; TEMP 97.8
--- NOTE | 2017-10-17 09:36 | ECHO2D ---
Date of Exam: 10/16/17 Ordering Physician: DR. FERNANDEZ VILLAGOMEZ Room #: [id number] Reason for Echo: SOB, WEAKNESS M-Mode Normal Adult Results LV Dimensions Normal Adult Results AoV Opening excursions >1.6 >1.6 LVEDD-base- 3.5-5.8 4.6 Ao root dimensions 2.0-3.7 3.7 LVESD-base- 3.1-4.6 L. Atrium dimensions 1.9-3.8 4.7 Post. Wall thickness 0.8-1.1 1.2 IV septum (thickness) 0.7-1.2 1.2 Post. Wall excursion 0.72-1.3 NORMAL Septal motion NORMAL Systolic motion R. Ventricular cavity 1.5-2.0 3.5 LVEF 60% 70% Paradoxical septal wall motion NORMAL 2-D : ENLARGED LEFT ATRIAL CAVITY--NORMAL LEFT VENTRICULAR CONTRACTILITY-- NORMAL VALVES--NO EFFUSION, NO THROMBUS, NORMAL LEFT VENTRICLE SIZE M-MODE: MV: NORMAL AV: NORMAL TV: NORMAL PV: CHAMBER SIZE: ENLARGED LEFT ATRIAL CAVITY WALL MOTION: NORMAL PERICARDIUM: NORMAL INTERPRETATION: 1. BORDERLINE LEFT VENTRICULAR HYPERTROPHY WITH ENLARGED LEFT ATRIAL CAVITY 2. NORMAL LEFT VENTRICULAR CONTRACTILITY 3. NORMAL VALVES MTDD
--- NOTE | 2017-10-17 10:58 | CM.DICTOOL ---
ADMISSION: 10/14/17 12:50 DISCHARGE: 10/17/17 DATE OF SERVICE: 10/17/17 FINAL DIAGNOSIS PNEUMONIA, BILATERAL PERIHILAR SHORTNESS OF BREATH COPD EXACERBATION HYPOKALEMIA ANXIETY HYPERTENSION GERD OSTEOPOROSIS OSTEOARTHRITIS SIGMOID DIVERTICULOSIS, COLONOSCOPY BY DR. DONOVAN 08/11/13 POLYEPCTOMY, 08/11/13 CHOLECYSTECTOMY HYSTERECTOMY HEMORRHOIDECTOMY CURRENT TOBACCO USE LAST VITALS Temp Pulse Resp BP Pulse Ox 97.9 F 68 24 164/83 H 97 10/17/17 05:30 10/17/17 05:30 10/17/17 05:30 10/17/17 05:30 10/17/17 05:30 TAKE THESE MEDICATIONS AT HOME Bisoprolol Fumarate [Bisoprolol Fumarate] 5 mg PO 1900 [facility] Last Admin: 10/16/17 19:01 Dose: 5 mg Cephalexin (Keflex) 500 mg PO TID Loratadine (Claritin) 1 Tab PO DAILY PRN Losartan/Hydrochlorothiazide [Losartan-Hctz 100-25 Mg Tab] 0.5 each PO 0600 [facility] Last Admin: 10/17/17 05:48 Dose: 0.5 each Omeprazole (Prilosec) 20 mg PO QDAC PRN PRN Reason: PEPTIC ULCER Potassium Chloride (K-Dur) 20 meq PO DAILYWM [facility] Last Admin: 10/17/17 08:28 Dose: 20 meq Prednisone 10 mg PO DAILYWM ALLERGIES codeine Adverse Reaction (Verified 10/14/17 10:19) Sulfa (Sulfonamide Antibiotics) Adverse Reaction (Verified 10/14/17 10:19) NEW PRESCRIPTIONS: Potassium Chloride [K-Dur] 20 meq PO DAILY #30 tab 10/17/17 SMOKING: CURRENT EVERYDAY LIGHT SMOKER THE PATIENT HAS RECEIVED INFORMATION REGARDING THE ADVERSE EFFECTS OF SMOKING CONTINUATION. SHE HAS BEEN ADVISED TO STOP SMOKING. SHE HAS NOT MADE A COMMITMENT TO STOP OR EVEN TO DECREASE THE FREQUENCY. WE WILL CONTINUE TO PROVIDE ENCOURAGEMENT TOWARD COMPLETE SMOKING CESSATION. DISEASE SPECIFIC EDUCATION: PNEUMONIA COPD HYPOKALEMIA HOME MEDICATIONS NEW PRESCRIPTIONS ADVERSE EFFECTS OF LONG-TERM STEROID USE FOLLOW UP LAB REVIEW: 10/17/17 04:45 10/17/17 04:45 10/17/17 04:45: Sodium 133 L, Potassium 3.7, Chloride 95 L, Carbon Dioxide 30, Anion Gap 11.7, BUN 6 L, Creatinine 0.56 L, Estimated GFR (MDRD) 105.00, BUN/ Creatinine Ratio 10.71, Glucose 78 L, Calcium 9.2, Total Bilirubin 0.5, AST 16, ALT 19, Alkaline Phosphatase 67, Total Protein 5.9, Albumin 2.9 L, Globulin 3.0 , Albumin/Globulin Ratio 0.97 10/17/17 04:45: WBC 8.74, RBC 4.54, Hgb 13.5, Hct 41.0, MCV 90.3, MCH 29.7, MCHC 32.9, RDW Coeff of [place] 13.7, Plt Count 302, Immature Gran % (Auto) 0.9, Neut % (Auto) 74.6, Lymph % (Auto) 15.0, Floyd % (Auto) 7.6, Eos % (Auto) 1.6, Baso % (Auto) 0.3, Immature Gran # (Auto) 0.1, Neut # (Auto) 6.5, Lymph # (Auto ) 1.3, Floyd # (Auto) 0.7, Eos # (Auto) 0.1, Baso # (Auto) 0.0 PLAN: DISCHARGE HOME TODAY, 10/17/[address] VILLAGOMEZ IN HIS OFFICE ON 10/24/17 AT 10 A.M. RESUME YOUR HOME MEDICATIONS PER LIST PROVIDED BY THE NURSING STAFF PLEASE RESUME YOUR KEFLEX AND PREDNISONE DIRECTED PROVIDED PRIOR TO THIS HOSPITALIZATION NEW PRESCRIPTIONS K-DUR 10 MEQ, TAKE ONE TABLET BY MOUTH DAILY ACTIVITY GET PLENTY OF REST AT HOME. GRADUALLY INCREASE YOUR ACTIVITY LEVEL ACCORDING TO YOUR TOLERATION DIET REGULAR TOLERATED SUMMARY THE PATIENT IS ALERT AND ORIENTED X3. SHE CURRENTLY RESIDES AT HOME ALONE. SHE HAS BEEN INDEPENDENT WITH ADL'S. SHE REQUIRES NO DME, HOME HEALTH OR HOMEMAKING SERVICES. SHE DESIRES TO RETURN HOME AT DISCHARGE. THE SKIN TURGOR IS VERY GOOD AND INTACT. NO DECUBITUS ULCERS ARE PRESENT AT DISCHARGE. MS. ABRAMS'S APPETITE IS FAIR. HER HYDRATION STATUS IS IMPROVED. HER COUGHING IS LESS AND HER LUNGS HAVE CLEARED. SHE HAS RESPONDED VERY WELL TO THE TREATMENT PROVIDED DURING THIS STAY. SHE IS AWARE AND AGREEABLE FOR DISCHARGE HOME. CURRENT CODE STATUS FULL CODE ROBERT ACEVES APRN FERNANDEZ VILLAGOMEZ M.D.
--- NOTE | 2017-10-18 14:26 | PN ---
DATE OF SERVICE: 10/17/17 SUBJECTIVE: The patient was seen and examined with Nurse Practitioner. The patient is doing well. She is afebrile and she is wanting to go home. She even said that she would sign out against medical advise. Appetite is good. Definitely has shown remarkably improvement everyday. Counseling for smoking done. She will be discharged on antibiotics to be taken as an outpatient. PHYSICAL EXAMINATION: HEENT: Head normocephalic, atraumatic. Eyes: Extraocular muscles are intact. Pupils are equal, round and reactive to light and accommodation. Ears: No lesions. Nose appeared normal. Throat: No exudate or erythema. NECK: Supple. No JVD, no carotid bruit. No lymphadenopathy or thyromegaly. LUNGS: Decreased breath sounds but clear to auscultation. Percussion note normal. Chest symmetrical. HEART: S1, S2, no S3. No murmurs. No cyanosis or clubbing. No ascites. Pulses: Dorsalis pedis and posterior tibial pulses +1 to +2 both sides. ABDOMEN: Soft. Nontender. Bowel sounds active. No CVA tenderness. No mass felt. EXTREMITIES: No edema. Full range of motion of all extremities, equal. NEUROLOGIC: No focal deficit. Cranial nerves II through XII are grossly intact. No headache, no double vision or headache. SKIN: Not dry. Intact. Turgor - normal. LYMPHATIC: No palpable lymph nodes/no lymphedema. MUSCULOSKELETAL: Normal joints with no swelling. Muscle tone is normal. TIME SPENT: More than 30 minutes. Plan and coordination of the patient's care discussed in the presence of nurse. JADEN
--- NOTE | 2017-10-18 14:27 | PN ---
10/14/17: Level 5 10/15/17: Intermediate 10/16/17: Intermediate 10/17/17: D as in discharge MTDD
--- NOTE | 2017-10-18 15:24 | DS ---
DATE OF SERVICE: 10/17/17 FINAL DIAGNOSIS: PNEUMONIA, BILATERAL PERIHILAR SHORTNESS OF BREATH COPD EXACERBATION HYPOKALEMIA ANXIETY HYPERTENSION GERD OSTEOPOROSIS OSTEOARTHRITIS SIGMOID DIVERTICULOSIS, COLONOSCOPY BY DR. DONOVAN 08/11/13 POLYEPCTOMY, 08/11/13 CHOLECYSTECTOMY HYSTERECTOMY HEMORRHOIDECTOMY CURRENT TOBACCO USE LAST VITALS: Temp Pulse Resp BP Pulse Ox 97.9 F 68 24 164/83 H 97 TAKE THESE MEDICATIONS AT HOME: Bisoprolol Fumarate [Bisoprolol Fumarate] 5 mg PO 1900 [facility] Cephalexin (Keflex) 500 mg PO TID Loratadine (Claritin) 1 Tab PO DAILY PRN Losartan/Hydrochlorothiazide [Losartan-Hctz 100-25 Mg Tab] 0.5 each PO 0600 [facility] Omeprazole (Prilosec) 20 mg PO QDAC PRN Potassium Chloride (K-Dur) 20 meq PO DAILYWM [facility] Prednisone 10 mg PO DAILYWM ALLERGIES: codeine Adverse Reaction (Verified 10/14/17 10:19) Sulfa (Sulfonamide Antibiotics) Adverse Reaction (Verified 10/14/17 10:19) NEW PRESCRIPTIONS: Potassium Chloride [K-Dur] 20 meq PO DAILY #30 tab 10/17/17 SMOKING: CURRENT EVERYDAY LIGHT SMOKER THE PATIENT HAS RECEIVED INFORMATION REGARDING THE ADVERSE EFFECTS OF SMOKING CONTINUATION. SHE HAS BEEN ADVISED TO STOP SMOKING. SHE HAS NOT MADE A COMMITMENT TO STOP OR EVEN TO DECREASE THE FREQUENCY. WE WILL CONTINUE TO PROVIDE ENCOURAGEMENT TOWARD COMPLETE SMOKING CESSATION. DISEASE SPECIFIC EDUCATION: PNEUMONIA COPD HYPOKALEMIA HOME MEDICATIONS NEW PRESCRIPTIONS ADVERSE EFFECTS OF LONG-TERM STEROID USE FOLLOW UP PLAN: DISCHARGE HOME TODAY, 10/17/[address] VILLAGOMEZ IN HIS OFFICE ON 10/24/17 AT 10 A.M. RESUME YOUR HOME MEDICATIONS PER LIST PROVIDED BY THE NURSING STAFF PLEASE RESUME YOUR KEFLEX AND PREDNISONE DIRECTED PROVIDED PRIOR TO THIS HOSPITALIZATION ACTIVITY: GET PLENTY OF REST AT HOME. GRADUALLY INCREASE YOUR ACTIVITY LEVEL ACCORDING TO YOUR TOLERATION DIET: REGULAR TOLERATED HOSPITAL COURSE: 77 year old white female who presented to the emergency room with fever, cough and congestion. She has been seen approximately 3-4 days prior in our office with similar symptoms and was put on Keflex 500mg PO three times a day as well as Prednisone 10mg PO twice a day. However had worsening symptoms and shortness of breath. Chest x-ray revealed bilateral perihilar pneumonia. She does have underlined COPD. She was admitted and placed on Solu-Medrol 40mg IV Q 12 hours along with Rocephin 1 gram IV daily and Zithromax 500mg PO daily for the next three days. Her kidney functions were slightly elevated on admission showing mild dehydration. She was started on IV fluids at 75cc an hour normal saline and has quickly improved within 24 hours and these fluids were discontinued. Her sodium did become low at 128 on Saturday however this has resolved on it's own. It is up to 133 today after discontinuing her fluids. Her blood pressure has been elevated slightly for the past 12 hours however she refused to change her medication. It is 160/80 on discharge. She refused to wear oxygen after the first day but today she has improved and is sating 97% on room air. She has been eating 25-50% of her meals. The patient refuses telemetry and she insisted on using only her medications from home. Refusing the medications from the hospital other than the IV. She was agreeable to do Xopenex NEB treatment Q 6 hours however she only accepted 24 hours of IV steroids due to the way they made her feel. She was started on Potassium 20meq three times a day yesterday due to 3.3. This has improved to 3.7 today she will be discharged on Potassium 20meq daily for the next 7 days if she agrees to take it. She is very headstrong and tends to be noncompliant with her medication regimen and does what she wants to do. However she is in stable condition. We will discharge her in stable condition. She is no longer using her oxygen and she has a ProAir inhaler at home for her to use three times a day. She will resume Keflex and Prednisone as she desires. TIME SPENT: More than 60 minutes. MTDD
== END 2017-10-17 10:20 | disposition home or self-care (01) | DRG 204 ==
LOC: ED 10:10 → MEDSURG B 12:50
PROVIDERS: ADMIT Internal Medicine; ATTEND Internal Medicine
DX: R06.02 Shortness of breath (principal); I50.1 Left ventricular failure, unspecified; I42.9 Cardiomyopathy, unspecified; J44.1 Chronic obstructive pulmonary disease with (acute) exacerbation; I10 Essential (primary) hypertension; E78.5 Hyperlipidemia, unspecified; E87.6 Hypokalemia; K21.9 Gastro-esophageal reflux disease without esophagitis; Q78.8 Other specified osteochondrodysplasias; M19.90 Unspecified osteoarthritis, unspecified site; M54.9 Dorsalgia, unspecified; F19.90 Other psychoactive substance use, unspecified, uncomplicated; F41.9 Anxiety disorder, unspecified; Z72.0 Tobacco use
CPT/HCPCS: 36415; 80053; 82803; 85025; 93005; 93010; 94640; 96365; 99284

== ENCOUNTER 2018-05-27 08:37 | Outpatient (CLI) ==
--- NOTE | 2018-05-27 09:34 | DEXA ---
EXAM: Bone densitometry. History: Osteoporosis. Findings: Evaluation of the lumbar spine reveals a total bone mineral density of 1.153 grams per centimeter squ ared with T-score of negative 0.2. Evaluation of the left hip reveals a total bone mineral density of 0.729 grams per centimeter squared with T-score of negative 2.2. Evaluation of the right hip reveals a total bone mineral density of 0.814 grams per centimeter square d with T-score of negative 1.5. FRAX: 10-year probability for major osteoporotic fracture is 12.2% and 3.2% for hip fracture. Impression: 1. Normal bone mineral density of the lumbar spine. 2. Osteopenia of bilateral hips
== END 2018-05-27 08:38 | disposition home or self-care (01) ==
LOC: RAD 08:37
PROVIDERS: ATTEND Internal Medicine
DX: M81.0 Age-related osteoporosis without current pathological fracture (principal)

== ENCOUNTER 2018-06-26 13:31 | Outpatient (RCR) ==
--- NOTE | 2018-06-27 14:07 | RS.OPPTEV2 ---
Date of Note: 06/26/18 Visit #: 1 Number of visits approved by Insurance: n/a Date of Evaluation: 06/26/18 Payer Source: MEDICARE Surgery Performed?: No Treatment Diagnosis: stenosis, low back pain History of Condition/Mechanism of Injury:: pt reports she has had a long history of low back pain beginning 2 years ago. Prior Level of Function.....Patient was independent with: ADL's, Self Care, Caregiving, Ambulation/Mobility, Community Integration/Access Level of Function: Patient works out regularly at gym, and is very active around her home. Functional Limitations: Sleep, ADL's, Sitting, Standing, Bending, Ambulation Current Subjective/complaints:: pt states she received a epidural injection at Dr. Huff's office on 06/24/18. States she really has no pain at rest currently. Treatment Side (optional): N/A *Precautions: n/a Medical History Medical History: Hypertension, COPD, Arthritis Surgical History: Cholecystectomy, Hysterectomy Surgical History Comments:: fx LLE Smoking Status: Former smoker Hx Home Medications: losartan, bisoprolol, gabapentin, ventolin, tylenol arthritis, loratadine Patient's Goals: have no low back pain Pain Assessment - Pain Description Pain Location: low back with "pressure" in B hips Pain Description: "pressure" Current Pain Intensity: 0 at rest, 1-2 with activity Functional Outcome Measure Oswestry LBP: 19 - G Codes & Severity Modifier G Codes & Modifier: n/a Source of G Code score: n/a Observation - Observation Inspection: BLE hamstring and piriformis tightness Posture: Forward Head, Rounded Shoulders, Increased Thoracic Kyphosis Handedness: Right Gait - Gait Pattern Gait Comments: pt amb with forward flexed posture with no AD. General Range of Motion: BUE WFL's. BLE WFL's Muscle Strength: BUE 5/5. BLE 5/5 - ROM Lumbar Flexion: Hand reach to Mid-Shins Sidebending to Left: Reach to Lateral Joint Line Sidebending to Right: Reach to Lateral Joint Line Lumbar Spine ROM Limitations: Soft Tissue Tightness, Muscle Weakness, Pain Comments: pt with increased pain with lateral flex bilaterally - Strength Trunk Extension: 4- Good- Trunk Flexion: 4- Good- Trunk Lateral Flexion: 4- Good- - Special Tests ALEAH Test: Negative Left, Negative Right SLR Test: Negative Left, Negative Right SI Joint Compression: Negative Palpation Palpation Findings: Tenderness Comments:: pt presents with tenderness to palpation in lumbar paraspinal and in area of B SI with muscle guarding also noted. Sensation - Sensation Right Upper Extremity: Intact/Normal Left Upper Extremity: Intact/Normal Right Lower Extremity: Intact/Normal Left Lower Extremity: Intact/Normal Balance - Sitting Balance Static Sitting Balance: Normal Dynamic Sitting Balance: Normal - Standing Balance Static Standing Balance: Normal Dynamic Standing Balance: Normal - Heat/Cryotherapy Treatment: Hot Pack Comments:: lumbar area Interventions - Exercise/Activities/Manual Therapy Exercises/Activities: pt performed pelvic tilt, knee to chest, isometric hip add , resisted hip flex, as well as received hamstring stretch and piriformis stretch. Manual Therapy: NA HOME EXERCISE PROGRAM: pt given written HEP including pelvic tilt, knee to chest , isometric hip add, resisted hip flex, hamstring stretch, pirformis stretch - Charges Timed Code Treatment Minutes: 49 Total Treatment Time: 58 Procedures billed for this date of service:: eval med, ex EVALUATION COMPLEXITY LEVEL EVALUATION COMPLEXITY LEVEL: HISTORY: Medium, EXAM OF BODY SYSTEMS: Medium, CLINICAL PRESENTATION: Medium, CLINICAL DECISION MAKING: Medium Assessment Assessment: pt presents with decreased lumbar ROM, lumbar pain, decreased BLE strength, balance abnormality Patient Education: Home Exercise Program, Education of Plan of Care Rehab Potential: Good Short Term Goals Goal #1: Pt independent with initial with HEP. Goal to be met by: 07/11/18 (100%) Goal #2: improve hamstring flexibility BLE Goal to be met by: 07/11/18 (100%) Goal #3: Lumbar ROM WFL's Goal to be met by: 07/11/18 Goal #4: decrease pain in lumbar area < 2/10 with activity Goal to be met by: 07/11/18 Cadd Manager Goals Goal #1: report that she is able to perform normal household activities w less pain Goal to be met by: 07/25/18 Goal #2: Score on Oswestry LBP scale improved to <18 Goal to be met by: 07/25/18 Goal #3: No reports of radicular symptoms in B hips Goal to be met by: 07/25/18 Progress towards goal: Progressing Plan - Treatment to be Provided Procedures: Therapeutic Exercises, Therapeutic Activity, Patient Education Modalities: Electrical Stimulation, Ultrasound/Phonophoresis, Cryotherapy, Hot Packs - Treatment Plan Frequency: 2 X week Duration: 4 weeks Dates of Cadd Manager Goals: 07/25/18 Expiration date of current Insurance Approval:: n/a - Treatment Code (1) Low back pain Code(s): M54.5 - LOW BACK PAIN Qualifiers: Chronicity: chronic Back pain laterality: bilateral Sciatica presence: unspecified whether sciatica present Qualified Code(s): M54.5 - Low back pain ; G89.29 - Other chronic pain (2) Muscle weakness Code(s): M62.81 - MUSCLE WEAKNESS (GENERALIZED) (3) Muscle tightness Code(s): M62.89 - OTHER SPECIFIED DISORDERS OF MUSCLE
== END 2018-06-29 23:59 ==
PROVIDERS: ATTEND Nurse Practitioner
DX: M48.00 Spinal stenosis, site unspecified (principal); M54.5 Low back pain; G89.29 Other chronic pain; M62.81 Muscle weakness (generalized); M62.89 Other specified disorders of muscle

== ENCOUNTER 2018-06-28 10:28 | Outpatient (CLI) | END 2018-06-28 10:29 | disposition home or self-care (01) | LOC: AMBL 10:28 | PROVIDERS: ATTEND Emergency Medicine | DX: M25.552 Pain in left hip (principal); W19.XXXA Unspecified fall, initial encounter; R53.1 Weakness ==

== ENCOUNTER 2021-07-20 17:18 | Inpatient (IN) ==
--- NOTE | 2021-07-20 18:11 | DI ---
Exam: Chest one-view History: Cough FINDINGS: Normal cardiomediastinal contours. Normal pulmonary vasculature. The lungs are hyperexpa nded. Small bilateral pleural effusions. No superimposed infiltrates. No acute chest wall abnormal ity. Impression: Bilateral costophrenic angle blunting suspect for small effusions Severe chronic obstructive pulmonary disease No superimposed infiltrates or consolidation
[2021-07-20 18:14] LABS: BORDETELLA PARAPERTUSSIS (PCR) NOT DETECTED (NOT DETECT); BORDETELLA PERTUSSIS (PCR) NOT DETECTED (NOT DETECT); CHLAMYDIA PNEUMONIAE (PCR) NOT DETECTED (NOT DETECT); CORONAVIRUS 229E (PCR) NOT DETECTED (NOT DETECT); CORONAVIRUS HKU1 (PCR) NOT DETECTED (NOT DETECT); CORONAVIRUS NL63 (PCR) NOT DETECTED (NOT DETECT); CORONAVIRUS OC43 (PCR) NOT DETECTED (NOT DETECT); HUMAN METAPNEUMOVIRUS (PCR) NOT DETECTED (NOT DETECT); HUMAN RHINOVIRUS/ENTEROV (PCR) NOT DETECTED (NOT DETECT); INFLUENZA B (PCR) NOT DETECTED (NOT DETECT); MYCOPLASMA PNEUMONIAE (PCR) NOT DETECTED (NOT DETECT); PARAINFLUENZA VIRUS 1 (PCR) NOT DETECTED (NOT DETECT); PARAINFLUENZA VIRUS 2 (PCR) NOT DETECTED (NOT DETECT); PARAINFLUENZA VIRUS 3 (PCR) NOT DETECTED (NOT DETECT); PARAINFLUENZA VIRUS 4 (PCR) NOT DETECTED (NOT DETECT); RESPIRATORY SYNCYTIAL V (PCR) NOT DETECTED (NOT DETECT); SARS_COV_2 (PCR) NOT DETECTED (NOT DETECT)
[2021-07-20 18:18] LABS: BASOPHILS % (AUTO) 0.1 % (0.0-3.0); EOSINOPHILS % (AUTO) 0.2 % (0.0-7.0); HEMATOCRIT 42.8 % (37.0-47.0); HEMOGLOBIN 13.7 g/dl (12.0-16.0); IMMATURE GRANULOCYTE # (AUTO) 0.2 (0.0-1.0); IMMATURE GRANULOCYTE % (AUTO) 1.1 % (0.0-5.0); LYMPHOCYTES # (AUTO) 0.8 K/uL (0.60-3.4); LYMPHOCYTES % (AUTO) 4.9 (10.0-50.0); MEAN CORPUSCULAR HEMOGLOBIN 29.3 pg (27.0-31.0); MEAN CORPUSCULAR VOLUME 91.6 fl (81.0-99.0); MONOCYTES # (AUTO) 0.8 K/uL (0.4-2.0); MONOCYTES % (AUTO) 4.4 (0-10); NEUTROPHILS # (AUTO) 15.2 K/ul (2.0-6.9); NEUTROPHILS % (AUTO) 89.3 % (42.2-75.2); PLATELET COUNT 303 10^3/uL (140-440); RDW COEFFICIENT OF VARIATION 16.4 % (11.6-14.8); RED BLOOD COUNT 4.67 10^6/ul (4.20-5.40); WHITE BLOOD COUNT 17.02 K/ul (4.6-10.2)
[2021-07-20 18:25] LABS: ALANINE AMINOTRANSFERASE 38.6 U/L (0-35); ALBUMIN 3.33 g/dL (3.5-5.0); ALKALINE PHOSPHATASE 124.8 U/L (53-141); ASPARTATE AMINO TRANSFERASE 23.5 U/L (14-36); BILIRUBIN,TOTAL 0.79 mg/dL (0.2-1.3); BLOOD UREA NITROGEN 29.3 mg/dL (7-17); CALCIUM 8.56 mg/dL (8.4-10.2); CHLORIDE 90.2 mmol/L (98-107); CREATININE 0.57 mg/dL (0.60-1.30); GLUCOSE 94.2 mg/dL (74-106); POTASSIUM 3.19 mmol/L (3.5-5.1); SODIUM 136.9 mmol/L (134.5-145); TOTAL PROTEIN 5.7 g/dL (6.3-8.2)
[2021-07-20 18:32] LABS: CARBON DIOXIDE 39.2 mmol/L (22-30.0)
[2021-07-20 18:48] LABS: ABG O2 HGB 91.4 % (95-100); ABG PH 7.49 (7.35-7.45); BEecf 23.2 (-2.0-3.0); COHb 2.8 (0.5-1.5); HCO3 46.5 (21-28); TCO2 48.4 (19-24); sO2 92.2 % (94-98); tHb 13.1 g/dl (11.7-17.4)
[2021-07-20 19:05] LABS: ADENOVIRUS (PCR) NOT DETECTED (NOT DETECT)
[2021-07-20] MEDS ORDERED: OXYCODONE PO ONE (19:06)
[2021-07-20] MEDS ORDERED: ROCEPHIN 1 GM/50 ML D5W 1 GM/50 ML BAG IV SCH (19:30)
[2021-07-20] MEDS ORDERED: TYLENOL PO PRN (19:41)
[2021-07-20] MEDS ORDERED: NITROSTAT SL PRN (19:41)
[2021-07-20] MEDS ORDERED: ATROPINE SULFATE PFS IVP PRN (19:41)
[2021-07-20 19:57] LABS: CREATINE KINASE 25.2 U/L (30-135)
[2021-07-20 20:10] LABS: TROPONIN I 0.018 ng/ml (0.0000-0.120)
[2021-07-20 20:34] VITALS: BMI 23.1
[2021-07-20] MEDS ORDERED: K-DUR PO ONE (20:38)
[2021-07-20] MEDS ORDERED: VENTOLIN HFA (PER PUFF-WITH SPACER) IH PRN (20:45)
[2021-07-20] MEDS: SOLU-MEDROL 40 MG IVP SCH (21:12)
[2021-07-20] MEDS: CORDARONE PO SCH (21:25)
[2021-07-20] MEDS: LIPITOR PO SCH (21:25)
[2021-07-20] MEDS: ELIQUIS PO SCH (21:25)
[2021-07-20] MEDS ORDERED: DRISDOL PO SCH (21:30)
[2021-07-20 21:52] LABS: BILIRUBIN,URINE Negative (NEGATIVE); CLARITY,URINE Slightly (CLEAR); COLOR,URINE Yellow (YELLOW); GLUCOSE, URINE (UA) Negative (NEGATIVE); KETONES,URINE Negative (NEGATIVE); LEUKOCYTE ESTERASE ,URINE 3+ (NEGATIVE); NITRITE,URINE Negative (NEGATIVE); PROTEIN,URINE Negative (NEGATIVE); URINE, BLOOD Trace-intact (NEGATIVE); UROBILINOGEN,URINE 0.2 (0.2)
[2021-07-20 22:00] LABS: SQUAMOUS EPITHELIAL CELL,UR NOT PRESENT (0-5); URINE WBC, MICROSCOPIC 20-30 (0-2)
[2021-07-20] MEDS ORDERED: DUONEB NEB PRN (22:29)
[2021-07-21] MEDS: OXYCODONE PO PRN ×3 (01:20→18:33)
[2021-07-21 04:19] LABS: HEMATOCRIT 39.3 % (37.0-47.0); HEMOGLOBIN 12.6 g/dl (12.0-16.0); MEAN CORPUSCULAR HEMOGLOBIN 29.2 pg (27.0-31.0); MEAN CORPUSCULAR HGB CONC 32.1 (31.8-35.4); PLATELET COUNT 293 10^3/uL (140-440); RDW COEFFICIENT OF VARIATION 16.1 % (11.6-14.8); RED BLOOD COUNT 4.32 10^6/ul (4.20-5.40); WHITE BLOOD COUNT 12.32 K/ul (4.6-10.2)
[2021-07-21 04:27] LABS: ANISOCYTOSIS NOT PRESENT (NOT PRESENT)
[2021-07-21 04:31] LABS: ALANINE AMINOTRANSFERASE 33.1 U/L (0-35); ALBUMIN 3.07 g/dL (3.5-5.0); ASPARTATE AMINO TRANSFERASE 27.1 U/L (14-36); BILIRUBIN,TOTAL 0.57 mg/dL (0.2-1.3); BLOOD UREA NITROGEN 31.6 mg/dL (7-17); CALCIUM 8.41 mg/dL (8.4-10.2); CHLORIDE 93.2 mmol/L (98-107); CREATINE KINASE 23.5 U/L (30-135); CREATININE 0.53 mg/dL (0.60-1.30); GLUCOSE 172.3 mg/dL (74-106); MAGNESIUM 1.91 mg/dL (1.6-2.3); POTASSIUM 3.81 mmol/L (3.5-5.1); SODIUM 136.2 mmol/L (134.5-145); TOTAL PROTEIN 5.46 g/dL (6.3-8.2)
[2021-07-21 04:39] LABS: CARBON DIOXIDE 41.4 mmol/L (22-30.0)
[2021-07-21 04:42] LABS: TROPONIN I < 0.012 ng/ml (0.0000-0.120)
--- NOTE | 2021-07-21 06:09 | ED.PDOC ---
General ED Provider: Dr. SHERWIN BRISCOE Chief Complaint: Respiratory Complaint Stated Complaint: Cough, fabien, mild fever, weak, ill a few days, from half-way Time Seen by Provider: 07/20/21 17:39 Mode of Arrival: Ambulance Information Source: Patient and EMT Exam Limitations: No limitations Primary Care Provider: FERNANDEZ JOY Nursing and Triage Documentation Reviewed and Agree: Yes Does patient meet sepsis criteria?: No System Inflammatory Response Syndrome: Not Applicable Sepsis Protocol: For patient's 13 years and over: Temp is 96.8 and below OR 101 and greater Pulse >90 BPM Resp >20/minute Acutely Altered Mental Status Are patient's symptoms suggestive of a new infection, such as: -Pneumonia -Skin, Soft Tissue -Endocarditis -UTI -Bone, Joint Infection -Implantable Device -Acute Abdominal Infection -Wound Infection -Meningitis -Blood Stream Catheter Infection -Unknown Respiratory Complaint Exam Respiratory Complaint/Exam Onset/Duration: few d Symptoms Are: Still present Timing: Constant Initial Severity: Moderate Current Severity: Moderate Location: Chest Character: Reports Non-productive cough Aggravating: Reports None Alleviating: Reports None Associated Signs and Symptoms: Reports Fever Related History: Reports Similar episode History of Healthcare-Acquired Pneumonia: Lives at half-way Related Surgical History: Reports None Pulmonary Embolism Risk Factors: None Cardiac Risk Factors: Reports None Pseudomonas Risk Factors: Reports None Tuberculosis Risk Factors: Reports None Status Asthmaticus Risk Factors: Reports None Home Oxygen Use: Yes (prn) Recent Stress Test: No Recent Echo/LV Function: No Current Antibiotic Use: No Current Asthma Medication Use: No Respiratory Distress: Mild Inadequate Respiratory Effort: No Dysphagia Present: No Stridor Present: No JVD Present: No Accessory Muscle Use: No Retractions: Not Present Diminished Breath Sounds: Yes Sinus Tenderness: None Grunting Respirations: No Kussmaul Respirations: No Review of Systems Review Of Systems Constitutional: Reports No symptoms Eyes: Reports No symptoms Ears, Nose, Mouth, Throat: Reports No symptoms Respiratory: Reports Cough Cardiac: Reports No symptoms GI: Reports No symptoms : Reports No symptoms Musculoskeletal: Reports No symptoms Skin: Reports No symptoms Neurological: Reports No symptoms Endocrine: Reports No symptoms Hematologic/Lymphatic: Reports No symptoms All Other Systems: Reviewed and Negative [facility] Medical History (Updated 07/20/21 @ 20:31 by AVINASH MARK RN) Anxiety COPD (chronic obstructive pulmonary disease) Hypertension Pneumonia Social History Smoking and tobacco status: Former smoker Surgical History History of cholecystectomy History of hemorrhoidectomy History of hysterectomy Female Reproductive History Menstrual Hx Hysterectomy: Yes Hx Tubal Ligation: No Physical Exam Physical Exam Appearance: Reports Ill-appearing Ill-appearing: Moderate Pain Distress: None Eyes: Reports SANDRA ENT: Reports Oropharynx normal Neck: Supple Respiratory: Reports Airway patent, Breath sounds diminished and Rhonchi Cardiovascular: Reports RRR GI/: Reports Soft Musculoskeletal: Reports Normal strength and ROM intact Skin: Reports Warm and Dry Neurological: Reports Sensation intact, Motor intact and Alert Psychiatric: Reports Affect appropriate and Mood appropriate Interpretation Radiology Interpretation Radiology Interpretation By: Radiologist Radiology Results: No acute changes Exam Interpreted: Portable CXR Xray Comments: small effusions, no def. infiltrate EKG Interpretation Time of EKG #1: 18:02 Rate: Normal Rhythm: Sinus Ectopy: None [place]: NL ST Segment: Normal Interpretation: No ischemia. Physician Notification Case Discussed Physician Notified: Dr. Joy Comments: admit on tele Admit/Transition Orders Entered by ED Provider: Yes Admit To: Inpatient Critical Care Note Critical Care Note Total Critical Care Time (mins): 0 Course Course Hematology/Chemistry: 07/21/21 04:15 07/21/21 04:15 Orders, Labs, Meds: Lab Review 07/20/21 07/20/21 07/20/21 18:00 18:10 18:10 WBC 17.02 H RBC 4.67 Hgb 13.7 Hct 42.8 MCV 91.6 MCH 29.3 MCHC 32.0 RDW Coeff of [place]rb[place] 16.4 H Plt Count 303 Immature Gran % (Auto) 1.1 Neut % (Auto) 89.3 H Lymph % (Auto) 4.9 L [place] % (Auto) 4.4 Eos % (Auto) 0.2 Baso % (Auto) 0.1 Neut # (Auto) 15.2 H Lymph # (Auto) 0.8 [place] # (Auto) 0.8 Eos # (Auto) 0.0 Baso # (Auto) 0.0 Immature Gran # (Auto) 0.2 Puncture Site Base Excess O2 Saturation ABG pH ABG pCO2 ABG pO2 ABG HCO3 ABG Total CO2 [place] Test Hemoglobin Oxyhemoglobin Carboxyhemoglobin Total Hemoglobin O2 Delivery Device Oxygen Liter Flow Sodium 136.9 Potassium 3.19 L Chloride 90.2 L Carbon Dioxide 39.2 H Anion Gap 10.69 BUN 29.3 H Creatinine 0.57 L Estimated GFR (MDRD) 102.00 BUN/Creatinine Ratio 51.40 Glucose 94.2 Calcium 8.56 Total Bilirubin 0.79 AST 23.5 ALT 38.6 H Alkaline Phosphatase 124.8 Total Creatine Kinase Troponin I Total Protein 5.70 L Albumin 3.33 L Globulin 2.37 Albumin/Globulin Ratio 1.40 Adenovirus (PCR) Not detected B. pertussis DNA (PCR) Not detected B.parapertussis DNA PCR Not detected C. pneumoniae DNA (PCR) Not detected Coronavirus OC43 (PCR) Not detected Coronavirus HKU1 (PCR) Not detected Coronavirus 229E (PCR) Not detected Coronavirus NL63 (PCR) Not detected Human Metapneumovir PCR Not detected Influenza Type A (PCR) Not detected Influenza B (RT-PCR) Not detected M. pneumoniae (PCR) Not detected Parainfluenza 1 (PCR) Not detected Parainfluenza 2 (PCR) Not detected Parainfluenza 3 (PCR) Not detected Parainfluenza 4 (PCR) Not detected RSV (PCR) Not detected Entero/Rhino (PCR) Not detected SARS-CoV-2 (PCR) Not detected 07/20/21 07/20/21 18:10 18:40 WBC RBC Hgb Hct MCV MCH MCHC RDW Coeff of [place] Plt Count Immature Gran % (Auto) Neut % (Auto) Lymph % (Auto) [place] % (Auto) Eos % (Auto) Baso % (Auto) Neut # (Auto) Lymph # (Auto) [place] # (Auto) Eos # (Auto) Baso # (Auto) Immature Gran # (Auto) Puncture Site Lr Base Excess 23.2 H O2 Saturation 92.2 L ABG pH 7.49 H ABG pCO2 61.0 H ABG pO2 59.0 L* ABG HCO3 46.5 H ABG Total CO2 48.4 H [place] Test Ps Hemoglobin 1.0 Oxyhemoglobin 91.4 L Carboxyhemoglobin 2.8 H Total Hemoglobin 13.1 O2 Delivery Device Cannula Oxygen Liter Flow 2.00 Sodium Potassium Chloride Carbon Dioxide Anion Gap BUN Creatinine Estimated GFR (MDRD) BUN/Creatinine Ratio Glucose Calcium Total Bilirubin AST ALT Alkaline Phosphatase Total Creatine Kinase 25.2 L Troponin I 0.018 Total Protein Albumin Globulin Albumin/Globulin Ratio Adenovirus (PCR) B. pertussis DNA (PCR) B.parapertussis DNA PCR C. pneumoniae DNA (PCR) Coronavirus OC43 (PCR) Coronavirus HKU1 (PCR) Coronavirus 229E (PCR) Coronavirus NL63 (PCR) Human Metapneumovir PCR Influenza Type A (PCR) Influenza B (RT-PCR) M. pneumoniae (PCR) Parainfluenza 1 (PCR) Parainfluenza 2 (PCR) Parainfluenza 3 (PCR) Parainfluenza 4 (PCR) RSV (PCR) Entero/Rhino (PCR) SARS-CoV-2 (PCR) Orders Category Date Time Status ADMIT PATIENT INPATIENT .TO [facility] (MONITORED BED) ADMISSION 07/20/21 19:5 2 Active ABG DRAW REQUEST Stat CARDIO 07/20/21 17:41 Completed EKG-(ED ONLY) Stat CARDIO 07/20/21 17:41 Completed EKG-(IP & OP ONLY) DAILY CARDIO 07/21/21 06:00 Completed EKG-(IP & OP ONLY) DAILY CARDIO 07/22/21 06:00 Ordered EKG-(IP & OP ONLY) Stat CARDIO 07/20/21 19:41 Completed OXYGEN Routine CARDIO 07/20/21 19:41 Active ACTIVITY .BR with BRP CARE 07/20/21 19:41 Active IP: INSERT SALINE LOCK ONCE CARE 07/20/21 19:41 Active TELEMETRY MONITORING TELE CARE 07/20/21 19:41 Active TELEMETRY MONITORING TELE CARE 07/20/21 19:52 Completed VITAL SIGNS Q8HR CARE 07/20/21 19:41 Active CARDIAC DIET DIETARY 07/20/21 Dinner Ordered ABG COOX Stat LAB 07/20/21 18:40 Completed CBC W/ AUTO DIFF DAILY@0600 LAB 07/21/21 04:15 Completed CBC W/ AUTO DIFF Stat LAB 07/20/21 18:10 Completed COMPREHENSIVE METABOLIC PANEL Stat LAB 07/20/21 18:10 Completed CREATINE KINASE Q8H LAB 07/20/21 18:10 Completed CREATINE KINASE Q8H LAB 07/21/21 04:15 Completed RESPIRATORY PANEL 2.1 (PCR) Stat LAB 07/20/21 18:00 Completed TROPONIN I Q8H LAB 07/20/21 18:10 Completed TROPONIN I Q8H LAB 07/21/21 04:15 Completed URINALYSIS C & S IF INDICATED Stat LAB 07/20/21 21:47 Completed 0.9 % Sodium Chloride [Saline Flush] MEDS 07/20/21 21:00 Active 1 syr IVF Q8HR Acetaminophen [Tylenol] MEDS 07/20/21 19:41 Active 650 mg PO Q4H PRN Atropine Sulfate Inj [Atropine Sulfate Pfs] MEDS 07/20/21 19:41 Active 0.5 mg IVP ONCE PRN Azithromycin Inj [Zithromax] 500 mg MEDS 07/21/21 09:00 Active 0.9 % Sodium Chloride [Sodium Chloride] 250 ml IV DAILY Ceftriaxone/D5w 1 gm Premix [Rocephin 1 gm/50 ml D5w] MEDS 07/20/21 19:30 Discontinued 1 gm in 50 ml IV DAILY Ceftriaxone/D5w 1 gm Premix [Rocephin 1 gm/50 ml D5w] MEDS 07/21/21 09:00 Active 1 gm in 50 ml IV DAILY Methylprednisolone Sod Succ/Pf [Solu-Medrol 40 mg] MEDS 07/20/21 21:00 Active 40 mg IVP TID Nitroglycerin [Nitrostat] MEDS 07/20/21 19:41 Active 0.4 mg SL Q5MIN X 3 DOSES PRN Oxycodone HCl [Oxycodone] MEDS 07/20/21 19:06 Discontinued 5 mg PO ONCE ONE CHEST, 1V AP ONLY Stat RADS 07/20/21 17:39 Completed Medications Generic Name Dose Route Start Last Admin Trade Name Freq PRN Reason Stop Dose Admin Acetaminophen 650 mg 07/20/21 19:41 Acetaminophen 325 Mg Tablet PO Q4H PRN Headache Albuterol Sulfate 1 puff 07/20/21 20:45 Albuterol Sulfate (Ventolin Hfa) 18 Gm 1 Puff With Spacer IH DIRECTED PRN COPD Albuterol/Ipratropium 3 ml 07/20/21 22:29 Ipratropium/Albuterol Vial.Neb NEB RTQ6H PRN Wheezing Amiodarone HCl 200 mg 07/20/21 21:00 07/20/21 21:25 Amiodarone Hcl 200 Mg Tablet PO 200 mg BID YESSENIA Administration Apixaban 5 mg 07/20/21 21:00 07/20/21 21:25 Apixaban 5 Mg Tab PO 5 mg BID YESSENIA Administration Atorvastatin Calcium 20 mg 07/20/21 21:00 07/20/21 21:25 Atorvastatin Calcium 20 Mg Tablet PO 20 mg BEDTIME [facility] Administration Atropine Sulfate 0.5 mg 07/20/21 19:41 Atropine Sulfate Inj 1 Mg/10 Ml Disp.Syrin IVP ONCE PRN Symptomatic Bradycardia Bisoprolol Fumarate 5 mg 07/21/21 17:00 Bisoprolol Fumarate 5 Mg Tablet PO QPM [facility] Diltiazem HCl 180 mg 07/21/21 09:00 Diltiazem Hcl 180 Mg Cap.Er.24h PO BID [facility] Docusate Sodium 100 mg 07/21/21 09:00 Docusate Sodium 100 Mg Capsule PO BID [facility] Ergocalciferol 50,000 unit 07/20/21 21:30 07/20/21 21:39 Ergocalciferol (Vitamin D2) 50,000 Unit Capsule PO Not Given Q7D [facility] HCTZ/Losartan Potassium 50 tab 07/21/21 09:00 Losartan/Hydrochlorothiazide 50/12.5 Mg Tab PO DAILY [facility] CEFTRIAXONE/D5W 1 GM PREMIX 1 gm in 50 mls @ 75 mls/hr 07/21/21 09:00 Rocephin 1 Gm/50 Ml D5w IV 07/24/21 08:59 DAILY [facility] Azithromycin 500 mg/ Sodium 250 mls @ 125 mls/hr 07/21/21 09:00 Chloride IV 07/24/21 08:59 DAILY [facility] Methylprednisolone Sodium Succinate 40 mg 07/20/21 21:00 07/20/21 21:12 Methylprednisolone Sod Succ/Pf 40 Mg/Ml Vial IVP 40 mg TID [facility] Administration Nitroglycerin 0.4 mg 07/20/21 19:41 Nitroglycerin 0.4 Mg Tab.Subl SL Q5MIN X 3 DOSES PRN Chest Pain Non-Formulary Medication 1 tab 07/21/21 09:00 Vit C,B-Ux-Kdtnr-Lutein-Zeaxan [Preservision Areds-2] PO DAILY [facility] Omeprazole 20 mg 07/21/21 09:00 Omeprazole 20 Mg Capsule.Dr PO DAILY [facility] Oxycodone HCl 5 mg 07/20/21 20:45 07/21/21 01:20 Oxycodone Hcl 5 Mg Tablet PO 5 mg Q6H PRN Administration Pain Sodium Chloride 1 syr 07/20/21 21:00 07/21/21 05:49 0.9% Sodium Chloride 10 Ml Disp.Syrin IVF 1 syr Q8HR YESSENIA Administration Spironolactone 25 mg 07/21/21 09:00 Spironolactone 25 Mg Tablet PO DAILY YESSENIA Torsemide 20 mg 07/21/21 09:00 Torsemide 20 Mg Tablet PO DAILY YESSENIA Discontinued Medications Generic Name Dose Route Start Last Admin Trade Name Freq PRN Reason Stop Dose Admin CEFTRIAXONE/D5W 1 GM PREMIX 1 gm in 50 mls @ 75 mls/hr 07/20/21 19:30 07/20/21 19:43 Rocephin 1 Gm/50 Ml D5w IV 07/23/21 19:29 75 mls/hr DAILY YESSENIA Administration Oxycodone HCl 5 mg 07/20/21 19:06 07/20/21 19:20 Oxycodone Hcl 5 Mg Tablet PO 07/20/21 19:07 5 mg ONCE ONE Administration Potassium Chloride 40 meq 07/20/21 20:38 07/20/21 21:25 Potassium Chloride 20 Meq Tab PO 07/20/21 20:39 40 meq ONCE ONE Administration Vital Signs: Temp Pulse Resp BP Pulse Ox 07/20/21 17:29 98.1 F 65 15 125/53 L 96 Discharge Plan Discharge Patient Disposition: ADMITTED INPATIENT Discharge Problem: COPD exacerbation ED Provider: SHERWIN BRISCOE Condition: Stable Physician Progress Note: [Admit with COPD exac. DNR.]
[2021-07-21] MEDS ORDERED: HYZAAR 50-12.5 MG TAB PO SCH (09:00)
--- NOTE | 2021-07-21 09:41 | PN ---
DATE OF SERVICE: 07/20/21 SUBJECTIVE: The patient was seen and examined in the emergency room. The patient's came in with cough and congestion and shortness of breath. The patient used to be a heavy smoker. The patient gives history of running fever at home. The patient was seen and examined in the emergency room by ER attending. Further evaluated arterial blood gasses showed normal pH with CO2 in 60s and pO2 in low 50. The patient has chronic lung disease and onset of metabolic acidosis. The patient is going to be admitted with acute exacerbation of COPD. She is going to be given steroids, antibiotics. NEBS treatment. She is going to be on telemetry. The patient's cardiovascular status is stable. Respiratory status so far stable but is going to require assessment. TIME SPENT: More than 30 minutes. Plan and coordination of the patient's care discussed in the presence of nurse. JADEN
[2021-07-21] MEDS: ZITHROMAX 500 MG in SODIUM CHLORIDE 250 ML IV SCH (09:51)
[2021-07-21] MEDS: PRILOSEC PO SCH (09:52)
[2021-07-21] MEDS: CARDIZEM CD PO SCH ×2 (09:52→20:56)
[2021-07-21] MEDS: SOLU-MEDROL 40 MG IVP SCH ×3 (09:52→21:32)
[2021-07-21] MEDS: COLACE PO SCH ×2 (09:52→20:58)
[2021-07-21] MEDS: ALDACTONE PO SCH (09:53)
[2021-07-21] MEDS: CORDARONE PO SCH ×2 (09:53→20:56)
[2021-07-21] MEDS: DEMADEX PO SCH (09:53)
[2021-07-21] MEDS: HYZAAR 50-12.5 MG TAB PO SCH (09:53)
[2021-07-21] MEDS: ELIQUIS PO SCH ×2 (09:54→20:58)
[2021-07-21] MEDS: NON-FORMULARY MEDICATION (Vit C,E-Zn-Coppr-Lutein-Zeaxan [Preservision Areds-2] 250-90-40- PO SCH (09:54)
[2021-07-21] MEDS ORDERED: VENTOLIN HFA (PER PUFF-WITH SPACER) IH PRN (10:30)
[2021-07-21] MEDS: ZEBETA PO SCH (17:26)
[2021-07-21] MEDS: LIPITOR PO SCH (20:56)
[2021-07-21] MEDS: ROCEPHIN 1 GM/50 ML D5W 1 GM/50 ML BAG IV SCH (20:56)
[2021-07-22] MEDS: OXYCODONE PO PRN ×4 (02:28→22:09)
[2021-07-22 05:31] LABS: BASOPHILS % (AUTO) 0.1 % (0.0-3.0); HEMATOCRIT 38.9 % (37.0-47.0); HEMOGLOBIN 12.7 g/dl (12.0-16.0); IMMATURE GRANULOCYTE # (AUTO) 0.2 (0.0-1.0); LYMPHOCYTES # (AUTO) 0.5 K/uL (0.60-3.4); LYMPHOCYTES % (AUTO) 3.3 (10.0-50.0); MEAN CORPUSCULAR HEMOGLOBIN 29.3 pg (27.0-31.0); MEAN CORPUSCULAR HGB CONC 32.6 (31.8-35.4); MEAN CORPUSCULAR VOLUME 89.8 fl (81.0-99.0); MONOCYTES # (AUTO) 0.3 K/uL (0.4-2.0); NEUTROPHILS # (AUTO) 15.1 K/ul (2.0-6.9); NEUTROPHILS % (AUTO) 93.6 % (42.2-75.2); PLATELET COUNT 314 10^3/uL (140-440); RDW COEFFICIENT OF VARIATION 16.2 % (11.6-14.8); RED BLOOD COUNT 4.33 10^6/ul (4.20-5.40); WHITE BLOOD COUNT 16.17 K/ul (4.6-10.2)
[2021-07-22] MEDS: PRILOSEC PO SCH (05:36)
[2021-07-22 05:44] LABS: ALANINE AMINOTRANSFERASE 29.7 U/L (0-35); ALBUMIN 3.23 g/dL (3.5-5.0); ALKALINE PHOSPHATASE 110.9 U/L (53-141); BILIRUBIN,TOTAL 0.55 mg/dL (0.2-1.3); BLOOD UREA NITROGEN 40.3 mg/dL (7-17); CALCIUM 8.98 mg/dL (8.4-10.2); CHLORIDE 91.9 mmol/L (98-107); CREATININE 0.56 mg/dL (0.60-1.30); GLUCOSE 240.5 mg/dL (74-106); POTASSIUM 3.46 mmol/L (3.5-5.1); SODIUM 135.3 mmol/L (134.5-145); TOTAL PROTEIN 5.63 g/dL (6.3-8.2)
[2021-07-22] MEDS: ALDACTONE PO SCH (09:08)
[2021-07-22] MEDS: COLACE PO SCH ×2 (09:08→20:15)
[2021-07-22] MEDS: CARDIZEM CD PO SCH ×2 (09:08→20:14)
[2021-07-22] MEDS: DEMADEX PO SCH (09:08)
[2021-07-22] MEDS: HYZAAR 50-12.5 MG TAB PO SCH (09:08)
[2021-07-22] MEDS: CORDARONE PO SCH ×2 (09:08→20:14)
[2021-07-22] MEDS: ZITHROMAX 500 MG in SODIUM CHLORIDE 250 ML IV SCH (09:09)
[2021-07-22] MEDS: ELIQUIS PO SCH ×2 (09:09→20:15)
[2021-07-22] MEDS: SOLU-MEDROL 40 MG IVP SCH ×3 (09:17→21:00)
[2021-07-22] MEDS: NON-FORMULARY MEDICATION (Vit C,E-Zn-Coppr-Lutein-Zeaxan [Preservision Areds-2] 250-90-40- PO SCH (09:27)
[2021-07-22] MEDS: ZEBETA PO SCH (16:08)
[2021-07-22] MEDS: LIPITOR PO SCH (20:14)
[2021-07-22] MEDS: ROCEPHIN 1 GM/50 ML D5W 1 GM/50 ML BAG IV SCH (20:22)
[2021-07-23 05:26] LABS: BASOPHILS % (AUTO) 0.2 % (0.0-3.0); HEMATOCRIT 43.6 % (37.0-47.0); HEMOGLOBIN 13.9 g/dl (12.0-16.0); IMMATURE GRANULOCYTE # (AUTO) 0.1 (0.0-1.0); IMMATURE GRANULOCYTE % (AUTO) 0.7 % (0.0-5.0); LYMPHOCYTES # (AUTO) 0.7 K/uL (0.60-3.4); MEAN CORPUSCULAR HGB CONC 31.9 (31.8-35.4); MEAN CORPUSCULAR VOLUME 90.8 fl (81.0-99.0); MONOCYTES # (AUTO) 0.2 K/uL (0.4-2.0); MONOCYTES % (AUTO) 1.1 (0-10); NEUTROPHILS # (AUTO) 16.1 K/ul (2.0-6.9); PLATELET COUNT 327 10^3/uL (140-440); RDW COEFFICIENT OF VARIATION 16.6 % (11.6-14.8); WHITE BLOOD COUNT 17.06 K/ul (4.6-10.2)
[2021-07-23 05:39] LABS: ALANINE AMINOTRANSFERASE 28.8 U/L (0-35); ALBUMIN 3.45 g/dL (3.5-5.0); ALKALINE PHOSPHATASE 133.2 U/L (53-141); ASPARTATE AMINO TRANSFERASE 20.6 U/L (14-36); BILIRUBIN,TOTAL 0.66 mg/dL (0.2-1.3); BLOOD UREA NITROGEN 54.9 mg/dL (7-17); CALCIUM 9.12 mg/dL (8.4-10.2); CARBON DIOXIDE 35.4 mmol/L (22-30.0); CHLORIDE 93.7 mmol/L (98-107); CREATININE 0.68 mg/dL (0.60-1.30); GLUCOSE 108.7 mg/dL (74-106); SODIUM 135.6 mmol/L (134.5-145); TOTAL PROTEIN 6.03 g/dL (6.3-8.2)
[2021-07-23] MEDS: PRILOSEC PO SCH (05:47)
[2021-07-23] MEDS: OXYCODONE PO PRN ×2 (07:51→13:54)
[2021-07-23] MEDS: SOLU-MEDROL 40 MG IVP SCH ×3 (08:48→20:14)
[2021-07-23] MEDS ORDERED: DRISDOL PO SCH (09:00)
[2021-07-23] MEDS: DEMADEX PO SCH (09:05)
[2021-07-23] MEDS: HYZAAR 50-12.5 MG TAB PO SCH (09:05)
[2021-07-23] MEDS: ZITHROMAX 500 MG in SODIUM CHLORIDE 250 ML IV SCH (09:05)
[2021-07-23] MEDS: ALDACTONE PO SCH (09:06)
[2021-07-23] MEDS: COLACE PO SCH ×2 (09:06→20:14)
[2021-07-23] MEDS: ELIQUIS PO SCH ×2 (09:06→20:15)
[2021-07-23] MEDS: CARDIZEM CD PO SCH ×2 (09:06→20:08)
[2021-07-23] MEDS: CORDARONE PO SCH ×2 (09:06→20:18)
[2021-07-23] MEDS: NON-FORMULARY MEDICATION (Vit C,E-Zn-Coppr-Lutein-Zeaxan [Preservision Areds-2] 250-90-40- PO SCH (09:07)
[2021-07-23] MEDS: ZEBETA PO SCH (16:22)
[2021-07-23] MEDS: ROCEPHIN 1 GM/50 ML D5W 1 GM/50 ML BAG IV SCH (20:14)
[2021-07-23] MEDS: LIPITOR PO SCH (20:15)
[2021-07-24 04:13] LABS: ABG O2 HGB 85.2 % (95-100); ABG PH 7.49 (7.35-7.45); BEecf 20.9 (-2.0-3.0); COHb 2.8 (0.5-1.5); HCO3 44.2 (21-28); MetHb 1.1 (0-1.5); sO2 86.1 % (94-98); tHb 13.5 g/dl (11.7-17.4)
[2021-07-24 05:28] LABS: BASOPHILS % (AUTO) 0.1 % (0.0-3.0); HEMATOCRIT 42.9 % (37.0-47.0); IMMATURE GRANULOCYTE # (AUTO) 0.1 (0.0-1.0); IMMATURE GRANULOCYTE % (AUTO) 0.7 % (0.0-5.0); LYMPHOCYTES # (AUTO) 0.4 K/uL (0.60-3.4); LYMPHOCYTES % (AUTO) 2.9 (10.0-50.0); MEAN CORPUSCULAR HEMOGLOBIN 29.2 pg (27.0-31.0); MEAN CORPUSCULAR HGB CONC 32.6 (31.8-35.4); MEAN CORPUSCULAR VOLUME 89.4 fl (81.0-99.0); MONOCYTES # (AUTO) 0.3 K/uL (0.4-2.0); NEUTROPHILS # (AUTO) 13.6 K/ul (2.0-6.9); NEUTROPHILS % (AUTO) 94.3 % (42.2-75.2); PLATELET COUNT 308 10^3/uL (140-440); RDW COEFFICIENT OF VARIATION 16.3 % (11.6-14.8); WHITE BLOOD COUNT 14.43 K/ul (4.6-10.2)
[2021-07-24 05:39] LABS: ALANINE AMINOTRANSFERASE 35.1 U/L (0-35); ALBUMIN 3.45 g/dL (3.5-5.0); ALKALINE PHOSPHATASE 126.4 U/L (53-141); ASPARTATE AMINO TRANSFERASE 20.8 U/L (14-36); BILIRUBIN,TOTAL 0.44 mg/dL (0.2-1.3); BLOOD UREA NITROGEN 56.8 mg/dL (7-17); CALCIUM 8.92 mg/dL (8.4-10.2); CHLORIDE 91.5 mmol/L (98-107); CREATININE 0.86 mg/dL (0.60-1.30); GLUCOSE 131.3 mg/dL (74-106); SODIUM 139.6 mmol/L (134.5-145); TOTAL PROTEIN 6.02 g/dL (6.3-8.2)
[2021-07-24] MEDS: PRILOSEC PO SCH (05:44)
[2021-07-24 05:54] LABS: POTASSIUM 2.68 mmol/L (3.5-5.1)
[2021-07-24 05:55] LABS: CARBON DIOXIDE 41.3 mmol/L (22-30.0)
[2021-07-24] MEDS ORDERED: CARDIZEM CD PO SCH (09:00)
[2021-07-24] MEDS: ALDACTONE PO SCH (09:06)
[2021-07-24] MEDS: COZAAR PO SCH (09:20)
[2021-07-24] MEDS: K-DUR PO SCH ×4 (09:20→20:27)
[2021-07-24] MEDS: SOLU-MEDROL 40 MG IVP SCH ×3 (09:20→20:39)
[2021-07-24] MEDS: SYMBICORT 160-4.5 MCG INHALER IH SCH ×2 (09:20→20:28)
[2021-07-24] MEDS: COLACE PO SCH ×3 (09:21→20:28)
[2021-07-24] MEDS: ELIQUIS PO SCH ×2 (09:21→20:27)
[2021-07-24] MEDS: CORDARONE PO SCH ×2 (09:21→20:27)
[2021-07-24] MEDS: OXYCODONE PO PRN ×2 (09:21→18:10)
[2021-07-24] MEDS: SODIUM CHLORIDE 0.9%-KCL 20 MEQ 1,000 ML IV SCH (09:22)
[2021-07-24] MEDS: DEMADEX PO SCH (09:23)
--- NOTE | 2021-07-24 09:23 | DI ---
EXAM: Chest one view, frontal view only. HISTORY: Shortness of breath. COMPARISON: 07/20/2021, 10/16/2017. FINDINGS: Heart size normal. Atherosclerotic calcifications present. Stable emphysema and bronchia l thickening. Stable bilateral pleural effusions. No new opacity. No pneumothorax. No acute osseo us abnormality. IMPRESSION: Stable appearance of the chest.
[2021-07-24] MEDS: NON-FORMULARY MEDICATION (Vit C,E-Zn-Coppr-Lutein-Zeaxan [Preservision Areds-2] 250-90-40- PO SCH (09:24)
[2021-07-24 09:53] LABS: ABG O2 HGB 93.8 % (95-100); BEecf 19.3 (-2.0-3.0); COHb 2.1 (0.5-1.5); HCO3 42.3 (21-28); MetHb 0.8 (0-1.5); TCO2 43.9 (19-24); sO2 95.9 % (94-98); tHb 13.9 g/dl (11.7-17.4)
[2021-07-24 09:56] LABS: ABG PH 7.51 (7.35-7.45)
[2021-07-24] MEDS: DUONEB NEB SCH ×3 (10:20→19:35)
--- NOTE | 2021-07-24 10:30 | RS.OTINEVL ---
Subjective - Patient information Date of Evaluation: 07/24/21 Date of Arrival on Unit: 07/20/21 Admitted From:: Emergency Dept (Pt was previously admitted to SNF following pelvic fx) Diagnosis: COPD exacerbation PRECAUTIONS: Fall risk, c/o increased pain, pelvic fx Usual Living Arrangement: Alone Living Arrangement Comments: Pt reports living at home prior to previous hospitalization following fall at home resulting in pelvic fx. Pt with recent SNF stay prior to this admission. Home Environment: House Medical History: Hypertension, COPD, Arthritis Surgical History: Cholecystectomy, Hysterectomy Surgical History Comments:: fx LLE Subjective Information/ Patient Comments:: Pt reports pain rated 9/10 at rest, requesting pain medication. Nsg notified. - Level of function Prior to this admission, the patient could do the following:: Independent Selfcare, Independent ADL's, Independent Ambulation, Perform Corporate Travel Manager/Cooking Current Level of Function: Partially Dependent Comments: Pt previously lived at home alone, reporting Mod I for ADLs, fxl mobility, and fxl t/f's prior to previous hospitalization and SNF placement secondary to pevlic fx. Pt reports she would utilize cane or walker during fxl tasks based on fatigue. Current Equipment Used at Home: DME includes shower chair, cane, walker, raised commode, and dressing stick. Pain Assessment - Pain Pain Score: 9 (Pt states "I quit telling them" in reference to pain location. Pt reports she experiences pain at all times.) Pain Location Body Site: Generalized Pain Aggravating Factors: ADL's, Changing Position, Exercise/Activity Interventions - Objective Patient Orientation: Person, Place, Time, Situation Current Interventions: IV's, Oxygen, Fuentes Catheter Observation: Pt with 2L O2 PNC donned upon entry, stating she has not utilized previously. Son present in room. Potus boots present. No distress noted at rest, but pt reports 9/10 pain. Interventions - ROM Right Upper Extremity AROM: WFL's Left Upper Extremity AROM: WFL's - Strength Right Upper Extremity Strength: Mild Weakness (4-/5) Left Upper Extremity Strength: Mild Weakness (4-/5) - Sensation Right Upper Extremity Sensation: Intact/Normal Left Upper Extremity Sensation: Intact/Normal Balance - Sitting Balance Static Sitting Balance: Good Dynamic Sitting Balance: Fair - Standing Balance Static Standing Balance: Zero Dynamic Standing Balance: Zero - Comments Balance Assessment Comments: Pt demonstrated ability to maintain sitting balance without UE support required, but postural sway noted to R at times. Cues provided to correct. Pt unable to complete sit<>stand t/f for standing balance assessment. ADL Skills - Self Feeding Self Feeding: Set Up Only - Grooming Grooming: Supervision, Verbal Cues Grooming Set-up: Sitting - Bathing Bathing UE: Supervision, Verbal Cues Bathing LE: Mod Assist, Verbal Cues Bathing Set-up: Sitting - Dressing Dressing UE: Supervision, Verbal Cues Dressing LE: Mod Assist, Verbal Cues - Toilet Management Toilet Hygiene: Mod Assist, Verbal Cues Toilet Clothing Management: Mod Assist, Verbal Cues Functional Mobility - Bed Mobility Rolling R/L: Min Assist Scooting: Mod Assist Supine to Sit: Mod Assist Sit to Supine: Mod Assist Comments:: Pt requires assist for R LE management during bed mobility. - Transfers Comments:: Pt unable to come to complete standing during sit<>stand despite Max A x1 with cues and education provided for t/f tech. - Ambulation Assistive Device Used: Rolling Walker Assistance needed with Ambulation: Not Tested - Safety Awareness Safety Awareness: Fair CARMEN INDEX SCORE: 27/100, indicating Max Assist. Additional Treatment Performed - Time with patient Length of Evaluation: 30 Total treatment time: 30 Patient Education Patient Education: Education of diagnosis, Body/Joint mechanics, Home Safety, Activity Modification, Education of Plan of Care Teaching Recipient: Patient, Family Teaching Methods: Discussion Assessment Problem List:: Decreased level of function, Requires training/education, Decreased safety/Risk of falls, Weakness, Pain limits previous level of function Rehab Potential: Fair Further Therapy Indicated?: Yes Evaluation Complexity: HISTORY: Medium, EXAM OF BODY SYSTEMS: Medium Patient's Goal(s): To get better so she can go home with son Short Term Goals - Goals GOAL 1: Pt to increase B UE strength to 4/5. Goal to be met by: 07/27/21 (to increase pt independence during fxl t/f's and fxl tasks.) GOAL 2: Pt to be Min A for LB dressing using AE PRN. Goal to be met by: 07/27/21 (to increase pt safety and independence during self care tasks.) GOAL 3: Pt to be Mod A for fxl t/f's using AD. Goal to be met by: 07/27/21 (to increase pt safety and independence during fxl tasks for safe return home. ) GOAL 4: Pt to tolerate 5 minutes of standing activities to increase I for ADLs. Goal to be met by: 07/27/21 Family Physician Goals GOAL 1: Pt to be Supervision for ADLs. Goal to be met by: 07/31/21 (in order to improve pt ability to care for self at home.) GOAL 2: Pt to demonstrate B UE strength of 4+/5. Goal to be met by: 07/31/21 (in order to increase pt independence during fxl t/f's and fxl tasks.) Plan Plan of Care: Therapeutic EX, Neuromuscular Re-Educ, Therapeutic Activity, Self- Care/Home Management Frequency of Treatment: 1-2 X day, as tolerated Duration of Treatment: 1 Week Anticipated Discharge Destination: [facility] Care Facility Treatment Diagnosis (ICD 10 Codes): M62.81 Muscle weakness, Z74.1 Need for assistance with personal care, Z74.0 Reduced mobility Has the Physician been added for Co-signature?: Yes
[2021-07-24 10:38] LABS: POTASSIUM 3.81 mmol/L (3.5-5.1)
--- NOTE | 2021-07-24 10:52 | PCM.PROG ---
Attending Provider: ATTENDING PROVIDER: Dr. FERNANDEZ VILLAGOMEZ This patient is seen with Reshma Zhao, Nurse Practitioner. DATE OF SERVICE: 07/24/21 SUBJECTIVE: This 81 year old /WHITE F was hospitalized 07/20/21. Renal function is significantly worse today. Potassium is low. She has been bradycardic however asymptomatic. She refuses telemetry. ABG this morning is worse than on admission. She is sitting up in bed alert and wanted to eat breakfast. REVIEW OF SYSTEMS: CONSTITUTIONAL: No night sweats. No fatigue, malaise, lethargy. No fever or chills. Weakness. HEENT: Eyes: No visual changes. No eye pain. No eye discharge. ENT: No runny nose. No epistaxis. No sinus pain. No odynophagia. No congestion. RESPIRATORY: No cough, no congestion. No hemoptysis. Shortness of breath. CARDIOVASCULAR: No angina symptoms. No CHF symptoms. No atypical chest pain for CAD. No palpitations. No orthopnea.. GASTROINTESTINAL: No abdominal pain. No nausea or vomiting. No diarrhea or constipation. No hematemesis. No hematochezia. GENITOURINARY: No urgency. No frequency. No dysuria. No hematuria. No obstructive symptoms. No discharge. No pain. No significant abnormal bleeding. MUSCULOSKELETAL: Hip pain; no joint swelling. NEUROLOGICAL: Awake, alert, oriented to time, place and person. No headache. No neck pain. No syncope. No seizures. No dizziness. PSYCHIATRIC: Not anxious. No depression. No suicidal thoughts. No homicidal thoughts. SKIN: No rash. No lesions. No wounds. ENDOCRINE: No unexplained weight loss. No weight gain. HEMATOLOGIC/LYMPHATIC: No anemia. No purpura. No petechiae. No prolonged or excessive bleeding. No palpable lymph nodes. PHYSICAL EXAMINATION: GENERAL: The patient is awake, alert and oriented, sitting in bed in no dis tress. VITAL SIGNS: Temperature 98.2 F, Pulse 53, Respiratory Rate 18, BP 115/59, Pulse Ox 98% HEENT: Head normocephalic, atraumatic. Eyes: Extraocular muscles are intact. Pupils are equal, round and reactive to light and accommodation. Ears: No lesions. Nose appeared normal. Throat: No exudate or erythema. NECK: Supple. No JVD, no carotid bruit. No lymphadenopathy or thyromegaly. LUNGS: Diminished breath sounds. Clear to auscultation. Percussion note normal. Chest symmetrical. HEART: S1, S2, no S3. No murmurs. No cyanosis or clubbing. No ascites. Pulses: Dorsalis pedis and posterior tibial pulses +1 to +2 both sides. ABDOMEN: Soft. Non-tender. Bowel sounds active. No CVA tenderness. No mass felt. EXTREMITIES: No edema. Full range of motion of all extremities, equal. NEUROLOGIC: No focal deficit. Cranial nerves II through XII are grossly intact. No headache. No double vision. SKIN: Not dry. Intact. Turgor-normal. LYMPHATIC: No palpable lymph nodes/no lymphedema. MUSCULOSKELETAL: Normal joints with no swelling. Muscle tone is normal. LAB REVIEW: 07/24/21 04:47 07/24/21 04:47 07/24/21 04:47: Sodium 139.6, Potassium 2.68 L*, Chloride 91.5 L, Carbon Dioxide 41.3 H*, Anion Gap 9.48, BUN 56.8 H, Creatinine 0.86, Estimated GFR (MDRD) 63.00, BUN/Creatinine Ratio 66.04, Glucose 131.3 H, Calcium 8.92, Total Bilirubin 0.44, AST 20.8, ALT 35.1 H, Alkaline Phosphatase 126.4, Total Protein 6.02 L, Albumin 3.45 L, Globulin 2.57, Albumin/Globulin Ratio 1.34 07/24/21 04:47: WBC 14.43 H, RBC 4.80, Hgb 14.0, Hct 42.9, MCV 89.4, MCH 29.2, MCHC 32.6, RDW Coeff of [place]rb[place] 16.3 H, Plt Count 308, Immature Gran % (Auto) 0.7, Neut % (Auto) 94.3 H, Lymph % (Auto) 2.9 L, [place] % (Auto) 2.0, Eos % (Auto) 0.0, Baso % (Auto) 0.1, Neut # (Auto) 13.6 H, Lymph # (Auto) 0.4 L, [place] # (Auto) 0.3 L, Eos # (Auto) 0.0, Baso # (Auto) 0.0, Immature Gran # (Auto) 0.1 07/24/21 04:08: Puncture Site Lbrach, Base Excess 20.9 H, O2 Saturation 86.1 L, ABG pH 7.49 H, ABG pCO2 58.0 H, ABG pO2 47.0 L*, ABG HCO3 44.2 H, ABG Total CO2 46.0 H, [place] Test +, Hemoglobin 1.1, Oxyhemoglobin 85.2 L, Carboxyhemoglobin 2.8 H, Total Hemoglobin 13.5, FiO2 % 21.0 ASSESSMENT: Please see below. 1. Acute Hypokalemia 2. Acute renal failure 3. Renal Azotemia 4. Asymptomatic bradycardia 5. History of new onset atrial fibrillation after recent hip fracture 6. Acute respiratory failure 7. Hypotension PLAN: 1. Potassium 20meq PO QID 2. Symbicort 160mg two puffs BID 3. DUO NEBS TID Scheduled 4. Normal saline 75cc with 20meq Potassium 5. Repeat chest -xray this morning 6. Repeat ABG on 2 liters 7. Hold Cardizem dose this morning 8. Hold Torsemide 9. Hold Aldactone 10.Decrease Cardizem dose to 90mg BID 11.Discontinue Hydrochlorothiazide 12.Given Losartan only 13.24 Holter Monitor 14.2D echo 15.CT chest with and without tomorrow. Plan and coordination of the patient's care discussed in the presence of Cement Worker and nurse. SCRIBED BY: Tammy DYE scribed while in presence of service performed by Dr. Villagomez/Reshma Zhao APRN on 07/24/21 ([id number])
--- NOTE | 2021-07-24 13:00 | CT ---
EXAM: CT Chest with and without contrast. HISTORY: Shortness of breath. Cough. COMPARISON: Radiograph earlier the same day. CT 10/17/2017. TECHNIQUE: Multiple axial images of the chest were obtained prior to and following intravenous admin istration of 75 mL Omnipaque 350, low osmolar. Images were reformatted in the sagittal and coronal p lanes. FINDINGS: Heart at the upper limits normal in size. Small amount pericardial fluid. Atheroscleroti c calcifications in the aorta and coronary arteries. No aortic dissection. No large pulmonary arter ial filling defect. Calcified lymph nodes. No michele lymphadenopathy. Small pleural effusions bilaterally. Severe emphysema. Low density endobronchial filling defects bi laterally left greater than right lower lobe consolidation. Chronic right middle lobe consolidation, similar to prior. Lungs otherwise clear. Limited images of the upper abdomen demonstrate biliary dilatation which is incompletely characterize d. Right nephrolithiasis. Degenerative changes in the spine. Old right rib fractures. IMPRESSION: 1. Bilateral lower lobe endobronchial filling defects, most likely mucus plugs. Probable left lower lobe pneumonia. Follow-up recommended to confirm resolution. 2. Stable small pleural effusions. 3. Stable severe emphysema. 4. Biliary dilatation, incompletely characterized. Consider MRCP for further evaluation. All CT scans are performed using dose optimization techniques as appropriate to the performed exam an d include at least one of the following: Automated exposure control, adjustment of the mA and/or kV according t o size, and the use of iterative reconstruction technique.
--- NOTE | 2021-07-24 13:55 | RS.PTINEVL ---
Subjective - Patient information Date of Evaluation: 07/24/21 Date of Arrival on Unit: 07/20/21 Admitted From:: Long-Term ([facility]) Diagnosis: pneumonia, recent fall w pelvic fx and rib fx Usual Living Arrangement: Long-Term Living Arrangement Comments: prior to fall pt lived alone and was independent with amb occasionally using a cane. pt has been at [facility] approx 1 week. Medical History: Hypertension, COPD Medical History Comments:: anxiety, pelvic fx, rib fx LATEX ALLERGY?: No Surgical History: Cholecystectomy, Hysterectomy Surgical History Comments:: hemorrhoidectomy Medications: see chart Subjective Information/ Patient Comments:: pt states that she has already tried therapy today. Explained to pt difference between OT and PT. pt states "I have answered all these questions a hundred times." Explained to patient that we were trying to help. pt states "I am not going to fdc, I am going home." Explained to patient that she has to be able to stand and walk to be able to go home because her son cannot lift her. - Level of function Prior to this admission, the patient could do the following:: Independent Selfcare, Independent ADL's, Independent Ambulation, Perform Glass Designer/Cooking Abilities prior to this admission: pt amb with cane occasionally Current Level of Function: Dependent Current Equipment Used at Home: DME includes shower chair, cane, walker, raised commode, and dressing stick. Pain Assessement - Location LLE Description: Sharp, Aching Intensity: 10 Pain Behavior: Guarding, Irritability, Facial Grimacing Pain Aggravating Factors: ADL's, Changing Position Pain Alleviating Factors: Medication Interventions - Objective Patient Orientation: Person, Place Current Interventions: IV's, Oxygen, Telemetry, Fuentes Catheter Observation: pt with increased thoracic kyphosis. Range of Motion - ROM Right Upper Extremity AROM: WFL's Left Upper Extremity AROM: WFL's Right Lower Extremity AROM: WFL's Left Lower Extremity AROM: Slight limitation (limited L hip and knee ROM due to pain (difficult to fully assess due to pt guarding)) Muscle Strength - Muscle Strength Right Upper Extremity Strength: Mild Weakness (grossly 4-/5) Left Upper Extremity Strength: Mild Weakness (grossly 4-/5) Right Lower Extremity Strength: Mild Weakness (hip flex 3+/5, knee flex/ext 4- /5, ankle DF/PF 4-/5) Left Lower Extremity Strength: Severe Weakness (hip flex 3-/5, knee flex/ext 3+/5, ankle DF/PF 3+/5) Sensation - Sensation Right Upper Extremity Sensation: Intact/Normal Left Upper Extremity Sensation: Intact/Normal Right Lower Extremity Sensation: Intact/Normal Left Lower Extremity Sensation: Intact/Normal Palpation Palpation Findings: Tenderness, Muscle Guarding Comments:: tenderness to palpation BLE with guarding especially LLE Balance - Sitting Balance and Reactions Static Sitting Balance: Fair Dynamic Sitting Balance: Poor Sitting Equilibrium Reactions: Delayed Left, Delayed Right Sitting Protective Reactions: Delayed Left, Delayed Right - Standing Balance and Reactions Static Standing Balance: Poor Dynamic Standing Balance: Poor Standing Equilibrium Reactions: Delayed Left, Delayed Right Standing Protective Reactions: Delayed Left, Delayed Right (Unable to maintain standing without mod to max of 2) Functional Mobility - Bed Mobility Rolling R/L: Mod Assist, 1 person assist Supine to Sit: Mod Assist, Max Assist, 1 person assist - Transfers Sit to Stand: Max Assist, 2 person assist Stand to Sit: Max Assist, 2 person assist Comments:: 2 attempts to stand with max of 2 and unable to achieve stand. 3rd attempt pt stood with max of 2 with nursing moving bed and placing chair under patient. - Safety Awareness Safety Awareness: Poor CARMEN INDEX SCORE: n/a Treatment time - Units charged ADL: 1 (TA) - Time with patient Length of Evaluation: 26 Total treatment time: 32 Patient Education - Education Patient Education: Activity Modification, Education of Plan of Care Teaching Recipient: Patient Teaching Methods: Discussion, Demonstration Comments: discussion regarding POC and dc planning. Discussion with nurse case management and son regarding dc planning. Advised that I would recommend LTC for rehab due to pt is max of 2 for transfers. Assessment - Assessment Problem List:: Decreased level of function, Requires training/education, Decreased safety/Risk of falls, Weakness, Pain limits previous level of function, Cognitive status limits abilities Rehab Potential: Fair Further Therapy Indicated?: Yes Candidate for Swing Bed for Therapy Services?: Feel pt may not be a candidate for swing bed due to max of 2 and not cooperative with therapy/nursing. Evaluation Complexity: HISTORY: Medium, EXAM OF BODY SYSTEMS: Medium, CLINICAL PRESENTATION: Medium, CLINICAL DECISION MAKING: Medium Patient's Goal(s): "I want to go home." Short Term Goals GOAL #1: pt independent with initial HEP. Goal to be met by: 07/27/21 GOAL #2: Rolling with bedrails with mod x 1 Goal to be met by: 07/27/21 GOAL #3: Transfer sup to/from sit mod x 1 Goal to be met by: 07/27/21 GOAL #4: Sit to/from stand mod x 1 Goal to be met by: 07/27/21 GOAL #5: Stand pivot bed to/from chair w mod x 1 Goal to be met by: 07/27/21 Retirement Goals GOAL #1: Transfer sup to/from sit to/from stand min x 1 Goal to be met by: 07/31/21 GOAL #2: pt amb 25ft with rwx with min x 1 Goal to be met by: 07/31/21 GOAL #3: Able to sit at side of bed reach away and across midline no LOB Goal to be met by: 07/31/21 Plan Plan of Care: Therapeutic EX, Therapeutic Activity Other:: progress to gait training when able Frequency of Treatment: 1-2 X day, as tolerated Duration of Treatment: 1 Week Anticipated Discharge Destination: [facility] Treatment Diagnosis (ICD 10 Codes): balance impaired R 26.81. weakness M62.81. difficulty walking R 26.2. fractured pelvic Has the Physician been added for Co-signature?: Yes
[2021-07-24] MEDS: ZITHROMAX 500 MG in SODIUM CHLORIDE 250 ML IV SCH (15:31)
[2021-07-24] MEDS: ZEBETA PO SCH (17:04)
[2021-07-24] MEDS: LIPITOR PO SCH (20:27)
[2021-07-24] MEDS: CARDIZEM PO SCH ×2 (20:27)
[2021-07-24] MEDS: ROCEPHIN 1 GM/50 ML D5W 1 GM/50 ML BAG IV SCH (20:28)
[2021-07-24] MEDS ORDERED: CARDIZEM PO SCH (21:00)
[2021-07-25] MEDS: SODIUM CHLORIDE 0.9%-KCL 20 MEQ 1,000 ML IV SCH (02:25)
[2021-07-25] MEDS: DUONEB NEB SCH ×3 (04:50→19:57)
[2021-07-25 05:22] LABS: HEMATOCRIT 37.2 % (37.0-47.0); MEAN CORPUSCULAR HEMOGLOBIN 29.1 pg (27.0-31.0); MEAN CORPUSCULAR HGB CONC 32.3 (31.8-35.4); MEAN CORPUSCULAR VOLUME 90.1 fl (81.0-99.0); PLATELET COUNT 241 10^3/uL (140-440); RDW COEFFICIENT OF VARIATION 16.5 % (11.6-14.8); RED BLOOD COUNT 4.13 10^6/ul (4.20-5.40); WHITE BLOOD COUNT 13.97 K/ul (4.6-10.2)
[2021-07-25 05:30] LABS: ANISOCYTOSIS NOT PRESENT (NOT PRESENT)
[2021-07-25 05:40] LABS: ALANINE AMINOTRANSFERASE 34.5 U/L (0-35); ALBUMIN 3.24 g/dL (3.5-5.0); ALKALINE PHOSPHATASE 112.2 U/L (53-141); ASPARTATE AMINO TRANSFERASE 18.6 U/L (14-36); BILIRUBIN,TOTAL 0.49 mg/dL (0.2-1.3); BLOOD UREA NITROGEN 39.9 mg/dL (7-17); CALCIUM 8.89 mg/dL (8.4-10.2); CARBON DIOXIDE 36.4 mmol/L (22-30.0); CREATININE 0.48 mg/dL (0.60-1.30); POTASSIUM 4.34 mmol/L (3.5-5.1); SODIUM 140.4 mmol/L (134.5-145); TOTAL PROTEIN 5.47 g/dL (6.3-8.2)
[2021-07-25] MEDS: PRILOSEC PO SCH (05:41)
--- NOTE | 2021-07-25 08:48 | PCM.PROG ---
Attending Provider: ATTENDING PROVIDER: Dr. FERNANDEZ VILLAGOMEZ This patient is seen with Reshma Zhao, Nurse Practitioner. DATE OF SERVICE: 07/25/21 SUBJECTIVE: This 81 year old /WHITE F was hospitalized 07/20/21. The patient is resting comfortably, complaining of leg pain. She requires 2-3 person assist. Labs have improved. Potassium is normal. Kidney function has improved. Chest CT showed pneumonia. REVIEW OF SYSTEMS: CONSTITUTIONAL: No night sweats. No fatigue, malaise, lethargy. No fever or chills. HEENT: Eyes: No visual changes. No eye pain. No eye discharge. ENT: No runny nose. No epistaxis. No sinus pain. No odynophagia. No congestion. RESPIRATORY: No cough, no congestion. No hemoptysis. Shortness of breath. CARDIOVASCULAR: No angina symptoms. No CHF symptoms. No atypical chest pain for CAD. No palpitations. No orthopnea.. GASTROINTESTINAL: No abdominal pain. No nausea or vomiting. No diarrhea or constipation. No hematemesis. No hematochezia. GENITOURINARY: No urgency. No frequency. No dysuria. No hematuria. No obstructive symptoms. No discharge. No pain. No significant abnormal bleeding. MUSCULOSKELETAL: No musculoskeletal pain; no joint swelling. Leg pain. NEUROLOGICAL: Awake, alert, oriented to time, place and person. No headache. No neck pain. No syncope. No seizures. No dizziness. PSYCHIATRIC: Not anxious. No depression. No suicidal thoughts. No homicidal thoughts. SKIN: No rash. No lesions. No wounds. ENDOCRINE: No unexplained weight loss. No weight gain. HEMATOLOGIC/LYMPHATIC: No anemia. No purpura. No petechiae. No prolonged or e xcessive bleeding. No palpable lymph nodes. PHYSICAL EXAMINATION: GENERAL: The patient is awake, alert and oriented, lying in bed in no distress. VITAL SIGNS: Temperature 97.2 F, Pulse 74, Respiratory Rate 18, BP 136/62, Pulse Ox 98% HEENT: Head normocephalic, atraumatic. Eyes: Extraocular muscles are intact. Pupils are equal, round and reactive to light and accommodation. Ears: No lesions. Nose appeared normal. Throat: No exudate or erythema. NECK: Supple. No JVD, no carotid bruit. No lymphadenopathy or thyromegaly. LUNGS: Diminished breath sounds. Clear to auscultation. Percussion note normal. Chest symmetrical. HEART: S1, S2, no S3. No murmurs. No cyanosis or clubbing. No ascites. ABDOMEN: Soft. Non-tender. Bowel sounds active. No CVA tenderness. No mass felt. EXTREMITIES: No edema. Full range of motion of all extremities, equal. 2in darkened area on both heels with 1cm darkened area on each pinkie. Unable to palpate pedal pulses. NEUROLOGIC: No focal deficit. Cranial nerves II through XII are grossly intact. No headache. No double vision. SKIN: Not dry. Intact. Turgor-normal. LYMPHATIC: No palpable lymph nodes/no lymphedema. MUSCULOSKELETAL: Normal joints with no swelling. Muscle tone is normal. LAB REVIEW: 07/25/21 04:43 07/25/21 04:43 07/25/21 04:43: Sodium 140.4, Potassium 4.34, Chloride 99.0, Carbon Dioxide 36.4 H, Anion Gap 9.34, BUN 39.9 H, Creatinine 0.48 L, Estimated GFR (MDRD) 124.00, BUN/Creatinine Ratio 83.12, Glucose 134.0 H, Calcium 8.89, Total Bilirubin 0.49, AST 18.6, ALT 34.5, Alkaline Phosphatase 112.2, Total Protein 5.47 L, Albumin 3.24 L, Globulin 2.23, Albumin/Globulin Ratio 1.45 07/25/21 04:43: WBC 13.97 H, RBC 4.13 L, Hgb 12.0, Hct 37.2, MCV 90.1, MCH 29.1, MCHC 32.3, RDW Coeff of [place] 16.5 H, Plt Count 241, Neutrophils % (Manual) 96.0 H , Lymphocytes % (Manual) 3.0 L, Monocytes % (Manual) 1.0, Anisocytosis Not present 07/24/21 09:48: Puncture Site R brach, Base Excess 19.3 H, O2 Saturation 95.9, ABG pH 7.51 H*, ABG pCO2 53.0 H, ABG pO2 73.0 L, ABG HCO3 42.3 H, ABG Total CO2 43.9 H, [place] Test Y, Hemoglobin 0.8, Oxyhemoglobin 93.8 L, Carboxyhemoglobin 2.1 H, Total Hemoglobin 13.9, O2 Delivery Device Cannula, Oxygen Liter Flow 2.00 07/24/21 04:47: NT-Pro-B Natriuret Pep 453.000 H 07/23/21 04:49: Potassium 3.81, Anion Gap 10.31 ASSESSMENT: Please see below. 1. Severe PAD likely causing wounds on foot, all areas are closed 2. Pelvic fracture 3. Generalized weakness 4. Renal azotemia 5. Acute respiratory failure 6. Left lower lobe pneumonia. PLAN: 1. Bilateral arterial studies 2. Keep pressure off heel 3. Likely need Wound care and Vascular referral 4. Discontinue fluids after this bag Plan and coordination of the patient's care discussed in the presence of Solder Leveler Printed Circuit Boards and nurse. SCRIBED BY: Tammy DYE scribed while in presence of service performed by Dr. Villagomez/Reshma Zhao APRN on 07/25/21 ([id number])
[2021-07-25] MEDS: SOLU-MEDROL 40 MG IVP SCH ×3 (09:02→22:00)
[2021-07-25] MEDS: ZITHROMAX 500 MG in SODIUM CHLORIDE 250 ML IV SCH (09:02)
[2021-07-25] MEDS: DEMADEX PO SCH (09:03)
[2021-07-25] MEDS: OXYCODONE PO PRN ×2 (09:03→16:13)
[2021-07-25] MEDS: ALDACTONE PO SCH (09:03)
[2021-07-25] MEDS: CARDIZEM PO SCH ×4 (09:03→20:41)
[2021-07-25] MEDS: COLACE PO SCH ×2 (09:04→20:40)
[2021-07-25] MEDS: ELIQUIS PO SCH ×2 (09:04→20:41)
[2021-07-25] MEDS: CORDARONE PO SCH ×2 (09:04→20:41)
[2021-07-25] MEDS: COZAAR PO SCH (09:04)
[2021-07-25] MEDS: NON-FORMULARY MEDICATION (Vit C,E-Zn-Coppr-Lutein-Zeaxan [Preservision Areds-2] 250-90-40- PO SCH (09:05)
[2021-07-25] MEDS: SYMBICORT 160-4.5 MCG INHALER IH SCH ×2 (09:05→20:43)
--- NOTE | 2021-07-25 13:27 | PN ---
DATE OF SERVICE: 07/23/21 SUBJECTIVE: 81 year old white female hospitalized with COPD exacerbation. The patient also has fracture of pubic bone. She doesn't have pain anymore but she is feeling better. Breathing better. Appetite has improved. Son is present in the room and case discussed. REVIEW OF SYSTEMS: CONSTITUTIONAL: No night sweats. No fatigue, malaise, lethargy. No fever or chills. HEENT: Eyes: No visual changes. No eye pain. No eye discharge. ENT: No runny nose. No epistaxis. No sinus pain. No sore throat. No odynophagia. No congestion. RESPIRATORY: No cough, no congestion. No hemoptysis. No shortness of breath. CARDIOVASCULAR: No angina symptoms. No CHF symptoms. No atypical chest pain for CAD. No palpitations. No PND. No orthopnea. GASTROINTESTINAL: No abdominal pain. No nausea or vomiting. No diarrhea or constipation. No hematemesis. No hematochezia. GENITOURINARY: No urgency. No frequency. No dysuria. No hematuria. No obstructive symptoms. No discharge. No pain. No significant abnormal bleeding. MUSCULOSKELETAL: No musculoskeletal pain; no joint swelling. NEUROLOGICAL: No headache. No neck pain. No syncope. No seizures. No dizziness. PSYCHIATRIC: Not anxious. No depression. No suicidal thoughts. No homicidal thoughts. SKIN: No rash. No lesions. No wounds. ENDOCRINE: No unexplained weight loss. No weight gain. HEMATOLOGIC/LYMPHATIC: No anemia. No purpura. No petechiae. No prolonged or excessive bleeding. No palpable lymph nodes. PHYSICAL EXAMINATION: VITAL SIGNS: Temperature 96.8, pulse 68, respiratory rate 18, blood pressure 100/59 and pulse ox 95%. HEENT: Head normocephalic, atraumatic. Eyes: Extraocular muscles are intact. Pupils are equal, round and reactive to light and accommodation. Ears: No lesions. Nose appeared normal. Throat: No exudate or erythema. NECK: Supple. No JVD, no carotid bruit. No lymphadenopathy or thyromegaly. LUNGS: Decreased breath sounds but Clear to auscultation. Percussion note normal. Chest symmetrical. HEART: S1, S2, no S3. No murmurs. No cyanosis or clubbing. No ascites. Pulses: Dorsalis pedis and posterior tibial pulses +1 to +2 bilaterally. ABDOMEN: Soft. Nontender. Bowel sounds active. No CVA tenderness. No mass felt. EXTREMITIES: No edema. Full range of motion of all extremities, equal. NEUROLOGIC: No focal deficit. Cranial nerves II through XII are grossly intact. No headache. No double vision. SKIN: Not dry. Intact. Turgor - normal. LYMPHATIC: No palpable lymph nodes/no lymphedema. MUSCULOSKELETAL: Normal joints with no swelling. Muscle tone is normal. LABS: Hgb 13.9, hct 43, WBC 17,000 normal differential, creatinine 0.6, BUN 54, potassium 3.5 ASSESSMENT: 1. COPD exacerbation under control PLAN: 1. ABG on room air 2. Continue antibiotics and steroids. 3. The patient will have physical therapy starting from tomorrow. 4. The patient had abnormal EKG as mentioned in the last note but the patient's EKG is unchanged. No symptoms of CHF or CAD. CONDITION: Stable. TIME SPENT: More than 30 minutes. Plan and coordination of the patient's care discussed in the presence of nurse. JADEN
--- NOTE | 2021-07-25 13:32 | PN ---
DATE OF SERVICE: 07/22/21 SUBJECTIVE: 81 year old white female hospitalized from the halfway because of COPD exacerbation. The patient states that she is feeling alot better. Her breathing is better, coughing is much less. Practically not much pain in the leg. She says that she took a bath and now that helped her a lot. REVIEW OF SYSTEMS: CONSTITUTIONAL: No night sweats. No fatigue, malaise, lethargy. No fever or chills. HEENT: Eyes: No visual changes. No eye pain. No eye discharge. ENT: No runny nose. No epistaxis. No sinus pain. No sore throat. No odynophagia. No congestion. RESPIRATORY: No cough, no congestion. No hemoptysis. No shortness of breath. CARDIOVASCULAR: No angina symptoms. No CHF symptoms. No atypical chest pain for CAD. No palpitations. No PND. No orthopnea. GASTROINTESTINAL: No abdominal pain. No nausea or vomiting. No diarrhea or constipation. No hematemesis. No hematochezia. GENITOURINARY: No urgency. No frequency. No dysuria. No hematuria. No obstructive symptoms. No discharge. No pain. No significant abnormal bleeding. MUSCULOSKELETAL: No musculoskeletal pain; no joint swelling. NEUROLOGICAL: No headache. No neck pain. No syncope. No seizures. No dizziness. PSYCHIATRIC: Not anxious. No depression. No suicidal thoughts. No homicidal thoughts. SKIN: No rash. No lesions. No wounds. ENDOCRINE: No unexplained weight loss. No weight gain. HEMATOLOGIC/LYMPHATIC: No anemia. No purpura. No petechiae. No prolonged or excessive bleeding. No palpable lymph nodes. PHYSICAL EXAMINATION: VITAL SIGNS: Temperature 97, pulse 58, respiratory rate 16, blood pressure 170/60 and pulse ox 95%. HEENT: Head normocephalic, atraumatic. Eyes: Extraocular muscles are intact. Pupils are equal, round and reactive to light and accommodation. Ears: No lesions. Nose appeared normal. Throat: No exudate or erythema. NECK: Supple. No JVD, no carotid bruit. No lymphadenopathy or thyromegaly. LUNGS:Decreased breath sounds but clear to auscultation. Percussion note normal. Chest symmetrical. HEART: S1, S2, no S3. No murmurs. No cyanosis or clubbing. No ascites. Pulses: Dorsalis pedis and posterior tibial pulses +1 to +2 bilaterally. ABDOMEN: Soft. Nontender. Bowel sounds active. No CVA tenderness. No mass felt. EXTREMITIES: No edema. Full range of motion of all extremities, equal. NEUROLOGIC: No focal deficit. Cranial nerves II through XII are grossly intact. No headache. No double vision. SKIN: Not dry. Intact. Turgor - normal. LYMPHATIC: No palpable lymph nodes/no lymphedema. MUSCULOSKELETAL: Normal joints with no swelling. Muscle tone is normal. LABS: Hgb 12.7, hct 38, WBC 16,000 normal differential, creatinine 0.5, BUN 40, potassium 3.46 ASSESSMENT: 1. COPD exacerbation with chronic respiratory failure seems to be under control 2. Dehydration seems to be resolving 3. Fracture of the pubic bone PLAN: 1. The patient already has been referred to for PT/OT. At halfway she was beginning to walk. 2. Counseling for smoking done 3. The patient's EKG findings noted. The patient's does not have any symptoms or signs of CHF or coronary insufficiency. She does not want any further testing done pertaining to her heart. The patient is DNR. TIME SPENT: More than 30 minutes. Plan and coordination of the patient's care discussed in the presence of nurse. JADEN
[2021-07-25] MEDS: ZEBETA PO SCH (16:13)
--- NOTE | 2021-07-25 16:40 | US ---
EXAM: Ultrasound bilateral lower extremity arterial Doppler HISTORY: Bilateral claudication. COMPARISON: None. TECHNIQUE: A duplex Doppler study was performed consisting of integrated two dimensional (2D) real-t emma imaging color flow Doppler and Doppler spectral analysis utilizing linear array probes. FINDINGS: Velocities in meters per second as follows: Right common femoral artery: Monophasic wave form, 1.81. Right superficial femoral artery, proximal: No significant flow visible. Right superficial femoral artery, distal: Weak monophasic wave form, 0.1 Right popliteal artery: Monophasic wave form, 0.23. Right anterior tibial artery: Weak monophasic wave form, 0.1. Right posterior tibial artery: Weak monophasic wave form, 0.12. Left common femoral artery: Monophasic wave form, 2.09. Left superficial femoral artery, proximal: Monophasic wave form, 0.6. Left superficial femoral artery, distal: Monophasic wave form, 2.78. Left popliteal artery: Monophasic wave form, 0.45. Left anterior tibial: No significant flow detected. Left posterior tibial artery: No significant flow detected. Extensive plaquing seen throughout both lower extremity arterial systems. IMPRESSION: 1. Suspect occlusion of the proximal to mid right superficial femoral artery with reconstitution in the right popliteal artery. Minimal flow distally. 2. Elevated velocities in the left common femoral and distal superficial femoral arteries likely due to underlying moderate to severe stenoses. No significant flow in the left calf arteries likely due to arterial occlusive disease.
[2021-07-25] MEDS: LIPITOR PO SCH (20:41)
[2021-07-25] MEDS: ROCEPHIN 1 GM/50 ML D5W 1 GM/50 ML BAG IV SCH (20:44)
[2021-07-26] MEDS: DUONEB NEB SCH ×3 (04:30→20:10)
[2021-07-26] MEDS: OXYCODONE PO PRN ×3 (04:46→19:13)
[2021-07-26 05:20] LABS: HEMATOCRIT 38.2 % (37.0-47.0); HEMOGLOBIN 12.2 g/dl (12.0-16.0); MEAN CORPUSCULAR HEMOGLOBIN 29.3 pg (27.0-31.0); MEAN CORPUSCULAR HGB CONC 31.9 (31.8-35.4); MEAN CORPUSCULAR VOLUME 91.6 fl (81.0-99.0); PLATELET COUNT 226 10^3/uL (140-440); RED BLOOD COUNT 4.17 10^6/ul (4.20-5.40); WHITE BLOOD COUNT 13.72 K/ul (4.6-10.2)
[2021-07-26 05:33] LABS: ALANINE AMINOTRANSFERASE 44.3 U/L (0-35); ALBUMIN 3.36 g/dL (3.5-5.0); ALKALINE PHOSPHATASE 103.3 U/L (53-141); ASPARTATE AMINO TRANSFERASE 25.3 U/L (14-36); BILIRUBIN,TOTAL 0.48 mg/dL (0.2-1.3); BLOOD UREA NITROGEN 38.7 mg/dL (7-17); CALCIUM 8.93 mg/dL (8.4-10.2); CARBON DIOXIDE 38.9 mmol/L (22-30.0); CHLORIDE 98.5 mmol/L (98-107); CREATININE 0.64 mg/dL (0.60-1.30); GLUCOSE 121.6 mg/dL (74-106); POTASSIUM 3.97 mmol/L (3.5-5.1); SODIUM 140.2 mmol/L (134.5-145); TOTAL PROTEIN 5.66 g/dL (6.3-8.2)
[2021-07-26 05:37] LABS: ANISOCYTOSIS NOT PRESENT (NOT PRESENT)
[2021-07-26] MEDS: PRILOSEC PO SCH (05:55)
--- NOTE | 2021-07-26 07:38 | ECHO2D ---
Date of Exam: 07/25/2021 Ordering Physician: DR. FERNANDEZ VILLAGOMEZ Room #: 102 Reason for Echo: SOA, BRADYCARDIA, COPD, HTN M-Mode Normal Adult Results LV Dimensions Normal Adult Results AoV Opening excursions >1.6 >1.6 LVEDD-base- 3.5-5.8 4.1 Ao root dimensions 2.0-3.7 3.4 LVESD-base- 3.1-4.6 L. Atrium dimensions 1.9-3.8 4.4 Post. Wall thickness 0.8-1.1 1.3 IV septum (thickness) 0.7-1.2 1.3 Post. Wall excursion 0.72-1.3 NORMAL Septal motion NORMAL Systolic motion R. Ventricular cavity 1.5-2.0 3.5 LVEF 60% 82% Paradoxical septal wall motion NORMAL 2-D : 2-D M Mode Echocardiogram was performed using apical four chamber and left parasternal long and short axis views. Mitral, tricuspid and aortic valves appear to be normal. Contractility of the left ventricle seems to be normal, so is the cavity size. ENLARGED LEFT ATRIAL CAVITY SIZE. Aortic root appears to be normal. There is no pericardial effusion. There is no thrombus noted in the left ventricle or left atrial cavity. ENLARGED RIGHT VENTRICLE CAVITY. M-MODE: MV: NORMAL AV: NORMAL TV: NORMAL PV: CHAMBER SIZE: ENLARGED LEFT ATRIAL CAVITY WALL MOTION: NORMAL PERICARDIUM: NORMAL INTERPRETATION: 1. LEFT VENTRICLE HYPERTROPHY WITH ENLARGED LEFT ATRIAL CAVITY (4.4 CM) 2. ENLARGED RIGHT VENTRICLE CAVITY 3. NORMAL VALVES 4. NORMAL LEFT VENTRICLE CONTRACTILITY AND SIZE OF LEFT VENTRICLE MTDD
--- NOTE | 2021-07-26 08:29 | HOLTER ---
PATIENT INFORMATION AND COMMENTS Attending Physician: DR. FERNANDEZ VILLAGOMEZ Indications: BRADYCARDIA __ Patient Medications: APIXABAN, ATORVASTATIN, DILTIAZEM HCL, ALDACTONE, TORSEMIDE, __ Pre-procedure Summary: Protocol: Standard Heart Rate Started: 07/23/2021 1350 Minimum: 55 BPM Weight: 130 LBS Ended: 07/24/2021 1136 Maximum: 110 BPM Height: 63" Duration: 21 HRS 45 MIN Average: 68 BPM INTERPRETATIONS/OBSERVATIONS: 1. BASIC RHYTHM: SINUS, RATE 55 BPM TO 110 BPM, AVERAGE 68 BPM 2. INFREQUENT ISOLATED PAC'S AND PVC'S 3. NO ATRIAL FIBRILLATION 4. NO ST-T WAVE CHANGES FROM BASELINE 5. ACTIVITY LOG BLANK MTDD
[2021-07-26] MEDS: ZITHROMAX 500 MG in SODIUM CHLORIDE 250 ML IV SCH (09:06)
[2021-07-26] MEDS: CORDARONE PO SCH ×2 (09:07→20:39)
[2021-07-26] MEDS: CARDIZEM PO SCH ×4 (09:07→20:40)
[2021-07-26] MEDS: PREDNISONE PO SCH (09:07)
[2021-07-26] MEDS: COZAAR PO SCH (09:07)
[2021-07-26] MEDS: COLACE PO SCH ×2 (09:08→20:40)
[2021-07-26] MEDS: SYMBICORT 160-4.5 MCG INHALER IH SCH ×2 (09:08→20:53)
[2021-07-26] MEDS: NON-FORMULARY MEDICATION (Vit C,E-Zn-Coppr-Lutein-Zeaxan [Preservision Areds-2] 250-90-40- PO SCH (09:08)
[2021-07-26] MEDS: ELIQUIS PO SCH ×2 (09:08→20:41)
[2021-07-26] MEDS: DEMADEX PO SCH (11:29)
[2021-07-26] MEDS: ALDACTONE PO SCH (11:29)
--- NOTE | 2021-07-26 13:28 | PN ---
DATE OF SERVICE: 07/24/21 SUBJECTIVE: 81 year old white female was seen and examined with Nurse Practitioner. The patient's condition has improved. She had complained of some leg pains which I think i combination of peripheral artery disease and osteoporosis and the fracture she had pubic ramus. The patient has two pressure sores with black eschar just around 1.5in on both heels. The patient's has guards on it to protect her from ulcer. The patient's was hospitalized with it. Advised her to have arterial studies done and have vascular surgeon referral but she declined as usual. Day after admission on 07/21/21 when I examined her I also had explained to her about it and advised vascular surgeon and arterial studied which she had declined. The patient's cardiovascular status is stable. EKG is abnormal but no symptoms of CHF. The patient's posterior tibial and feeble. TIME SPENT: More than 30 minutes. Plan and coordination of the patient's care discussed in the presence of nurse. JADEN
--- NOTE | 2021-07-26 13:34 | PN ---
DATE OF SERVICE: 07/25/21 SUBJECTIVE: 81 year old white female was seen and examined with the Nurse Practitioner. The patient's condition is stable. Infections are under control and COPD exacerbation seems to be under control. Her appetite has been acceptable. Oxygen saturation on 2 liters is 96%. The patient still says that she has strong desire to smoke. Counseling for smoking done. The patient today agreed to have arterial study done later on the report came back as moderate to severe bilateral arterial occlusive disease. I explained to her in the evening about findings and told her that it is going to be difficult to heal these two pressure sores she has because of poor circulation and her not being able to walk with sheering force in both heel. Continue to make her wear protective guards. The right second toe there maybe some early changes of gangrene. Strongly advised to have referral to Vascular surgeon. The referral has already been made and she hasn't said yes or no yet and she wants me to talk to her son tomorrow. TIME SPENT: More than 30 minutes. Plan and coordination of the patient's care discussed in the presence of nurse. JADEN
--- NOTE | 2021-07-26 13:45 | PN ---
DATE OF SERVICE: 07/26/21 SUBJECTIVE: 81 year old white female hospitalized with COPD exacerbation and UTI. The patient's condition has improved. The patient is from [facility]. Fracture of the left ramus. REVIEW OF SYSTEMS: CONSTITUTIONAL: No night sweats. No fatigue, malaise, lethargy. No fever or chills. HEENT: Eyes: No visual changes. No eye pain. No eye discharge. ENT: No runny nose. No epistaxis. No sinus pain. No sore throat. No odynophagia. No congestion. RESPIRATORY: No cough, no congestion. No hemoptysis. No shortness of breath. CARDIOVASCULAR: No angina symptoms. No CHF symptoms. No atypical chest pain for CAD. No palpitations. No PND. No orthopnea. GASTROINTESTINAL: No abdominal pain. No nausea or vomiting. No diarrhea or constipation. No hematemesis. No hematochezia. GENITOURINARY: No urgency. No frequency. No dysuria. No hematuria. No obstructive symptoms. No discharge. No pain. No significant abnormal bleeding. MUSCULOSKELETAL: No musculoskeletal pain; no joint swelling. Leg pains much less than before. NEUROLOGICAL: No headache. No neck pain. No syncope. No seizures. No dizziness. PSYCHIATRIC: Not anxious. No suicidal thoughts. No homicidal thoughts.The patient seems to have given up, somewhat depressed. SKIN: No rash. No lesions. No wounds. ENDOCRINE: No unexplained weight loss. No weight gain. HEMATOLOGIC/LYMPHATIC: No anemia. No purpura. No petechiae. No prolonged or excessive bleeding. No palpable lymph nodes. PHYSICAL EXAMINATION: VITAL SIGNS: Temperature 98.2, pulse 62, respiratory rate 18, blood pressure 134/60 and pulse ox 96%. HEENT: Head normocephalic, atraumatic. Eyes: Extraocular muscles are intact. Pupils are equal, round and reactive to light and accommodation. Ears: No lesions. Nose appeared normal. Throat: No exudate or erythema. NECK: Supple. No JVD, no carotid bruit. No lymphadenopathy or thyromegaly. LUNGS: Decreased breath sounds but clear to auscultation. Percussion note normal. Chest symmetrical. HEART: S1, S2, no S3. No murmurs. No cyanosis or clubbing. No ascites. Pulses: Posterior tibials are very feeble. ABDOMEN: Soft. Nontender. Bowel sounds active. No CVA tenderness. No mass felt. EXTREMITIES: No edema. Full range of motion of all extremities, equal. NEUROLOGIC: No focal deficit. Cranial nerves II through XII are grossly intact. No headache. No double vision. SKIN: Not dry. Intact. Turgor - normal. Both pressure sores on the heels with eschar pressure sites. 1.5inch oblong on the heals. LYMPHATIC: No palpable lymph nodes/no lymphedema. MUSCULOSKELETAL: Normal joints with no swelling. Muscle tone is normal. LABS: Hgb 12.2, hct 38, WBC 13,000 normal differential, creatinine 0.6, BUN 38, potassium 3.9 ASSESSMENT: 1. COPD exacerbation seems to be under control 2. Status post fracture left pubic bone ramus. The patient is able to get up with moderate assists, 2 person assist. 3. Severe peripheral arterial disease with pressure sores 4. History of hypertension 5. Smoking with severe COPD 6. Dyslipidemia PLAN: 1. It is going to be very difficult to heal the ulcers because of the patient's noncompliance, continued smoking, now inability to ambulate so sheering force laying down will not help. 2. The patient's nutritional status is below jamaal. The patient's problems are multiple as mentioned above like severe COPD very likely coronary artery disease with abnormal EKG, hypertension, dyslipidemia, peripheral arterial disease 3. The patient is overall noncompliant of aspects of medical care. Very difficult patient. The son understands it. PROGNOSIS: Guarded. TIME SPENT: More than 30 minutes. Reports discussed with the son. Son is present in the room. He agreed for the referral. The referral was already made yesterday and the patient will get an appointment to see a vascular surgeon either on Saturday or Saturday. The patient otherwise COPD stable. I discussed all the problems that the patient has and she will be at surgical risk in a way her arterial disease which is diffused maybe difficult to even vascularize her case. She is already been referred to vascular surgeon. Plan and coordination of the patient's care discussed in the presence of nurse. JADEN
--- NOTE | 2021-07-26 14:47 | US ---
Exam: Duplex evaluation of the cervical carotid system. Date: 07/26/2021 Comparison: 09/23/2013 History: Hypertension Technique: Duplex evaluation of the cervical carotid system was performed using hernandez scale, color and spectral Doppler. Findings: Right: There is mild plaque in the common carotid artery. The peak systolic velocity is 47 cm/sec. The color flow and waveforms are normal. There is mild plaque in the carotid bulb and internal carot id artery. The peak systolic velocity is 73 cm/sec. Flow was not visualized in the vertebral artery . Left: There is mild plaque in the common carotid artery. The peak systolic velocity is 51 cm/sec. T he color flow and waveforms are normal. There is mild plaque in the carotid bulb and internal caroti d artery. The peak systolic velocity is 75 cm/sec. Flow was not visualized in the vertebral artery. Impression: There is nonvisualization of the vertebral arteries bilaterally. Bilateral thrombosis of the vertebral arteries would be considered very unlikely. However would recommend correlation with CTA neck to confirm patency of the vessels. There is mild plaque in the cervical carotid systems but no hemodynamically significant lesions are observed.
[2021-07-26] MEDS: ZEBETA PO SCH (16:57)
[2021-07-26] MEDS: ROCEPHIN 1 GM/50 ML D5W 1 GM/50 ML BAG IV SCH (20:27)
[2021-07-26] MEDS: LIPITOR PO SCH (20:41)
[2021-07-26 21:22] VITALS: TEMP 97.9
[2021-07-27] MEDS: OXYCODONE PO PRN ×2 (02:07→09:26)
[2021-07-27] MEDS: DUONEB NEB SCH ×2 (04:45→14:44)
[2021-07-27 04:59] VITALS: BP 146/70
[2021-07-27 05:29] LABS: BASOPHILS % (AUTO) 0.1 % (0.0-3.0); EOSINOPHILS % (AUTO) 0.1 % (0.0-7.0); HEMATOCRIT 39.8 % (37.0-47.0); HEMOGLOBIN 12.7 g/dl (12.0-16.0); IMMATURE GRANULOCYTE # (AUTO) 0.1 (0.0-1.0); IMMATURE GRANULOCYTE % (AUTO) 0.8 % (0.0-5.0); LYMPHOCYTES # (AUTO) 1.1 K/uL (0.60-3.4); LYMPHOCYTES % (AUTO) 6.1 (10.0-50.0); MEAN CORPUSCULAR HEMOGLOBIN 29.2 pg (27.0-31.0); MEAN CORPUSCULAR HGB CONC 31.9 (31.8-35.4); MEAN CORPUSCULAR VOLUME 91.5 fl (81.0-99.0); MONOCYTES # (AUTO) 0.6 K/uL (0.4-2.0); NEUTROPHILS # (AUTO) 16.2 K/ul (2.0-6.9); NEUTROPHILS % (AUTO) 89.9 % (42.2-75.2); PLATELET COUNT 182 10^3/uL (140-440); RED BLOOD COUNT 4.35 10^6/ul (4.20-5.40); WHITE BLOOD COUNT 18.06 K/ul (4.6-10.2)
[2021-07-27 05:45] LABS: ALANINE AMINOTRANSFERASE 44.6 U/L (0-35); ALBUMIN 3.07 g/dL (3.5-5.0); ALKALINE PHOSPHATASE 96.3 U/L (53-141); BILIRUBIN,TOTAL 0.57 mg/dL (0.2-1.3); BLOOD UREA NITROGEN 36.9 mg/dL (7-17); CALCIUM 8.89 mg/dL (8.4-10.2); CARBON DIOXIDE 37.3 mmol/L (22-30.0); CHLORIDE 98.4 mmol/L (98-107); CREATININE 0.58 mg/dL (0.60-1.30); GLUCOSE 60.2 mg/dL (74-106); POTASSIUM 4.14 mmol/L (3.5-5.1); SODIUM 138.4 mmol/L (134.5-145); TOTAL PROTEIN 5.27 g/dL (6.3-8.2)
[2021-07-27] MEDS: PRILOSEC PO SCH (05:51)
[2021-07-27] MEDS: CARDIZEM PO SCH ×2 (08:57)
[2021-07-27] MEDS: PREDNISONE PO SCH (08:57)
[2021-07-27] MEDS: CORDARONE PO SCH (08:57)
[2021-07-27] MEDS: COZAAR PO SCH (08:57)
[2021-07-27] MEDS: DEMADEX PO SCH (08:57)
[2021-07-27] MEDS: ELIQUIS PO SCH (08:58)
[2021-07-27] MEDS: SYMBICORT 160-4.5 MCG INHALER IH SCH (08:58)
[2021-07-27] MEDS: COLACE PO SCH (09:29)
[2021-07-27] MEDS: NON-FORMULARY MEDICATION (Vit C,E-Zn-Coppr-Lutein-Zeaxan [Preservision Areds-2] 250-90-40- PO SCH (09:30)
[2021-07-27 10:07] LABS: CHOLESTEROL 131.8 mg/dL (0-200); HDL CHOLESTEROL 48.1 mg/dL (35-80); TRIGLYCERIDES 89.7 mg/dL (0-150)
--- NOTE | 2021-07-27 10:37 | PCM.PROG ---
Attending Provider: ATTENDING PROVIDER: Dr. FERNANDEZ VILLAGOMEZ This patient is seen with Reshma Zhao, Nurse Practitioner. DATE OF SERVICE: 07/27/21 SUBJECTIVE: This 81 year old /WHITE F was hospitalized 07/20/21. Carotid studied showed inconclusive. We will get a CTA of the neck this morning. Await to hear from Vascular for referral. Eating well. No fever. REVIEW OF SYSTEMS: CONSTITUTIONAL: No night sweats. No fatigue, malaise, lethargy. No fever or chills. Weakness. HEENT: Eyes: No visual changes. No eye pain. No eye discharge. ENT: No runny nose. No epistaxis. No sinus pain. No odynophagia. No congestion. RESPIRATORY: No cough, no congestion. No hemoptysis. No shortness of breath. CARDIOVASCULAR: No angina symptoms. No CHF symptoms. No atypical chest pain for CAD. No palpitations. No orthopnea.. GASTROINTESTINAL: No abdominal pain. No nausea or vomiting. No diarrhea or constipation. No hematemesis. No hematochezia. GENITOURINARY: No urgency. No frequency. No dysuria. No hematuria. No obstructive symptoms. No discharge. No pain. No significant abnormal bleeding. MUSCULOSKELETAL: No musculoskeletal pain; no joint swelling. Leg pain. NEUROLOGICAL: Awake, alert, oriented to time, place and person. No headache. No neck pain. No syncope. No seizures. No dizziness. PSYCHIATRIC: Not anxious. No depression. No suicidal thoughts. No homicidal thoughts. SKIN: No rash. No lesions. No wounds. ENDOCRINE: No unexplained weight loss. No weight gain. HEMATOLOGIC/LYMPHATIC: No anemia. No purpura. No petechiae. No prolonged or excessive bleeding. No palpable lymph nodes. PHYSICAL EXAMINATION: GENERAL: The patient is awake, alert and oriented, lying in bed in no distress. VITAL SIGNS: Temperature 97.9 F, Pulse 61, Respiratory Rate 18, BP 146/70, Pulse Ox 98% HEENT: Head normocephalic, atraumatic. Eyes: Extraocular muscles are intact. Pupils are equal, round and reactive to light and accommodation. Ears: No lesions. Nose appeared normal. Throat: No exudate or erythema. NECK: Supple. No JVD, no carotid bruit. No lymphadenopathy or thyromegaly. LUNGS: Diminished breath sounds. Clear to auscultation. Percussion note normal. Chest symmetrical. HEART: S1, S2, no S3. No murmurs. No cyanosis or clubbing. No ascites. Pulses: Dorsalis pedis and posterior tibial pulses +1 to +2 both sides. ABDOMEN: Soft. Non-tender. Bowel sounds active. No CVA tenderness. No mass felt. EXTREMITIES: No edema. Full range of motion of all extremities, equal. NEUROLOGIC: No focal deficit. Cranial nerves II through XII are grossly intact. No headache. No double vision. SKIN: Not dry. Intact. Turgor-normal. Unchanged blackened areas on heel and toes, areas unopened. LYMPHATIC: No palpable lymph nodes/no lymphedema. MUSCULOSKELETAL: Normal joints with no swelling. Muscle tone is normal. LAB REVIEW: 07/27/21 04:49 07/27/21 04:49 07/27/21 04:49: Sodium 138.4, Potassium 4.14, Chloride 98.4, Carbon Dioxide 37.3 H, Anion Gap 6.84, BUN 36.9 H, Creatinine 0.58 L, Estimated GFR (MDRD) 100.00, BUN/Creatinine Ratio 63.62, Glucose 60.2 L, Calcium 8.89, Total Bilirubin 0.57, AST 23.0, ALT 44.6 H, Alkaline Phosphatase 96.3, Total Protein 5.27 L, Albumin 3.07 L, Globulin 2.20, Albumin/Globulin Ratio 1.39 07/27/21 04:49: WBC 18.06 H, RBC 4.35, Hgb 12.7, Hct 39.8, MCV 91.5, MCH 29.2, MCHC 31.9, RDW Coeff of [place]rb[place] 17.0 H, Plt Count 182, Immature Gran % (Auto) 0.8, Neut % (Auto) 89.9 H, Lymph % (Auto) 6.1 L, [place] % (Auto) 3.0, Eos % (Auto) 0.1, Baso % (Auto) 0.1, Neut # (Auto) 16.2 H, Lymph # (Auto) 1.1, [place] # (Auto) 0.6, Eos # (Auto) 0.0, Baso # (Auto) 0.0, Immature Gran # (Auto) 0.1 ASSESSMENT: Please see below. 1. Left pneumonia 2. Severe COPD 3. Chronic respiratory failure 4. Severe PAD with necrotic areas on both foot 5. Dyslipidemia 6. Hypertension PLAN: 1. CTA neck this morning 2. Lipid panel 3. Will touch base with vascular 4. Possible discharge back to [facility] depending on vascular referral. Plan and coordination of the patient's care discussed in the presence of Archaeologist and nurse. SCRIBED BY: Jeimy DYEist scribed while in presence of service performed by Dr. Villagomez/Reshma Zhao APRN on 07/27/21 (0628)
--- NOTE | 2021-07-27 13:59 | DS ---
DATE OF SERVICE: 07/27/21 FINAL DIAGNOSIS: 1. Respiratory failure with pneumonitis 2. Severe chronic lung disease with history of smoking 3. Chronic respiratory failure 4. Fracture of multi pubic ramus, left side closed 5. History of recurrent pneumonia 6. History of recent UTI 7. Severe hypertension 8. Paroxysmal atrial fibrillation 9. Severe peripheral arterial disease with necrotic pressure sores on both heels post fracture of multipubic ramus and bedridden status since 07/13/21 10.Bilateral leg pain could be ischemic or combination of arterial insufficiency with osteoporosis, osteoarthritis with fracture 11.Status post fracture left hip 06/17/21 Dr. Berry 12.History of pulmonary nodule,CAT scan normal 07/18/21 13.History of severe dyslipidemia 14.Cardiomyopathy, hypertrophic 15.Chronic back pain followed by Dr. Washburn with injections 16.Severe osteoporosis from smoking 17.Protein caloric malnutrition 18.Noncompliant of all aspect of medical care like lifestyle, medications and followups and recommendations. DISCHARGE INSTRUCTIONS: Discharge to group home. MEDICATIONS AT DISCHARGE: Proair HFA Omeprazole 20mg daily Losartan 100mg daily Bisoprolol 5mg PO daily Amiodarone 200mg twice a day Atorvastatin 20mg PO daily Diltazem 90mg PO BID Vitamin D2 as before Docusate 50mg capsule 100mg twice a day Nicoderm patch 14mg topical for 7 days after that, 7mg for 7 days Oxycodone 5mg PRN twice a day Prednisone 10mg PO daily Aldactone 25mg PO daily Torsemide 20mg PO daily Eliquis 5mg twice a day NEW PRESCRIPTIONS: Omnicef 300mg PO BID for 5 days Prednisone 10mg twice a day for 5 days LABS: Chest x-ray unremarkable. CT scan showed possibly of pneumonia. Repeat chest x- ray showed severe chronic lung disease. PFT shows severe chronic lung disease with FEV1 of 800cc. Admission labs no COVID 19 negative. Bilateral arterial studies severe arterial disease of both lower extremities, almost total occlusion of arterial system. Carotid scan showed visualization of vertebral arteries bilateral. On 07/27/21 creatinine 0.58, BUN 36, AST 44 normal is up to 35. Total protein and albumins are low. WBC 18,000, HGb 12.7, HCT 39 HOSPITAL COURSE: 81 year old white female who is resident of the group home for past few days was transferred to the group home after being treated at [facility] for fracture of multi pubic ramus left closed and intractable pain. The patient was kept at [facility] from 07/21/21 to 07/13/21 for more than 12 days. She was seen there by hospitalist, surgery, cardiology and was discharged to the group home for physical therapy. The patient has not been able to walk, barely able to put weight on the lower extremities. The patient in the group home was noted to have cough, congestion and fever so she was admitted to [facility] on 07/20/21. She was noted to have pneumonia which was treated with Rocephin and Zithromax. Also steroids and NEBS treatment were used with some IV fluids. The patient's condition improved. Her respiratory status improved. She is in usually chronic respiratory failure but her hypoxemia worsened because of pneumonia. The patient's other problems that were noted was pressure ulcer with necrotic scab on both lower heels. Arterial study revealed that the patient had severe peripheral arterial disease. The patient's circulation in both lower extremities is compromised. Some early signs of possibility of gangrenous changes on the right tip of the toes. Initially the patient was reluctant to go anywhere or by evaluated. She was convinced by son and medical staff that she needs to be seen by vascular surgeon and later on maybe Wound Care management and she agreed to that. Dr. Humphrey was kind enough to see the patient on Saturday 10:30. He may end up referring the patient to Wound Care after evaluating the patient. Considering the patient is almost bed ridden with constant sheering force to both heels with severe protein calorie malnutrition and severe peripheral arterial disease with aging process. The patient's chances of healing these sores are very minimal. Prognosis for recovering her circulation in the feet and legs dismal. The patient has multiple comorbidities like advanced age with severe chronic lung disease with continued smoking, likely coronary artery disease with abnormal EKG, echocardiographic findings with history of paroxysmal arterial fibrillation. The patient also has history of severe hypertension and severe dyslipidemia. The patient has been followed by me for past 22 years and she is noncompliant of all aspects of medical care. The patient is a DNR. TIME SPENT: More than 60 minutes. JADEN
--- NOTE | 2021-07-27 14:03 | CT ---
EXAM: CTA of the neck was performed with and without contrast TECHNIQUE: Helical axial CTA of the neck was performed with and without contrast with multiplanar re constructions and separate work station 3-D renderings. COMPARISON: CT chest from 07/24/2021 HISTORY: Dizziness with concern for stroke. FINDINGS: There is no acute soft tissue abnormality. There are no neck masses or pathologic lymph nod es. Thyroid gland is slightly nodular. There are bilateral pleural effusions. There are no acute osse ous abnormalities. There is advanced degenerative change in the cervical spine. Aorta: Only the top of the aortic arch is included in the imaging volume which demonstrates fairly a dvanced calcific atherosclerosis. The origins of the left common carotid artery and the brachiocepha lic artery are not included in the imaging volume. Right carotid artery: The origin of the right common carotid artery off the brachiocephalic and the common carotid artery in the neck are widely patent. There is moderate calcific atherosclerosis of t he right carotid bifurcation which is widely patent. More distally in the neck the internal carotid artery is widely patent with no dissection or stenosis. Left carotid artery: The proximal aspect of the left common carotid artery is not included in the im aging volume. There is moderate calcific atherosclerosis of the common carotid artery proximally maury suring about 20% stenosis. There is calcific atherosclerosis involving the carotid bifurcation which is not hemodynamically significant. More distally in the neck the internal carotid artery is widely patent with no dissection or additional stenosis. Right vertebral artery: There is minimal narrowing of the origin of the right vertebral artery. The course of the right vertebral artery in the neck is normal with no additional stenosis or dissection or aneurysm. Left vertebral artery: There is minimal narrowing of the origin of the left vertebral artery. The c ourse of the left vertebral artery in the neck is unremarkable with no additional stenosis or aneurys m or dissection. The vertebral arteries are codominant. Intracranial circulation: The visualized portion of the intracranial circulation appears patent. The re is moderate relatively non stenotic calcific atherosclerosis of the bilateral internal carotid art eries at the siphon and paraclinoid segments. There appear to be bilateral origins of the post erior cerebral arteries. IMPRESSION: 1. Non stenotic multifocal atherosclerosis as described. There is no significant stenosis of the b ilateral cervical vertebral or carotid arteries. There is no dissection. 2. Other findings as above. All CT scans are performed using dose optimization techniques as appropriate to the performed exam an d include at least one of the following: Automated exposure control, adjustment of the mA and/or kV according t o size, and the use of iterative reconstruction technique.
[2021-07-28] MEDS ORDERED: OMNICEF PO SCH (09:00)
--- NOTE | 2021-08-02 12:56 | PN ---
DATE OF SERVICE: 07/21/21 SUBJECTIVE: 81 year old white female hospitalized from the retirement with COPD exacerbation. The patient had pubic ramus fracture on the left side with hip pain and left lower extremity swelling. Other problems are she has UTI. She has a Fuentes Catheter at present time. Son is present in the room. REVIEW OF SYSTEMS: CONSTITUTIONAL: No night sweats. No fatigue, malaise, lethargy. No fever or chills. HEENT: Eyes: No visual changes. No eye pain. No eye discharge. ENT: No runny nose. No epistaxis. No sinus pain. No sore throat. No odynophagia. No congestion. RESPIRATORY: Cough much better, no congestion. No hemoptysis. No shortness of breath. CARDIOVASCULAR: No angina symptoms. No CHF symptoms. No atypical chest pain for CAD. No palpitations. No PND. No orthopnea. GASTROINTESTINAL: No abdominal pain. No nausea or vomiting. No diarrhea or constipation. No hematemesis. No hematochezia. Appetite is better. GENITOURINARY: No urgency. No frequency. No dysuria. No hematuria. No obstructive symptoms. No discharge. No pain. No significant abnormal bleeding. MUSCULOSKELETAL: No musculoskeletal pain; no joint swelling. NEUROLOGICAL: No headache. No neck pain. No syncope. No seizures. No dizziness. PSYCHIATRIC: Not anxious. No depression. No suicidal thoughts. No homicidal thoughts. SKIN: No rash. No lesions. No wounds. ENDOCRINE: No unexplained weight loss. No weight gain. HEMATOLOGIC/LYMPHATIC: No anemia. No purpura. No petechiae. No prolonged or excessive bleeding. No palpable lymph nodes. PHYSICAL EXAMINATION: VITAL SIGNS: Temperature 96.8, pulse 70, respiratory rate 16, blood pressure 117/68 and pulse ox 99% with 2 liters. HEENT: Head normocephalic, atraumatic. Eyes: Extraocular muscles are intact. Pupils are equal, round and reactive to light and accommodation. Ears: No lesions. Nose appeared normal. Throat: No exudate or erythema. NECK: Supple. No JVD, no carotid bruit. No lymphadenopathy or thyromegaly. LUNGS: Decreased breath sounds but clear to auscultation. Percussion note normal. Chest symmetrical. HEART: S1, S2, no S3. No murmurs. No cyanosis or clubbing. No ascites. Pulses: Dorsalis pedis and posterior tibial pulses +1 to +2 bilaterally. ABDOMEN: Soft. Nontender. Bowel sounds active. No CVA tenderness. No mass felt. EXTREMITIES: No edema. Full range of motion of all extremities, equal. NEUROLOGIC: No focal deficit. Cranial nerves II through XII are grossly intact. No headache. No double vision. SKIN: Not dry. Intact. Turgor - normal. LYMPHATIC: No palpable lymph nodes/no lymphedema. MUSCULOSKELETAL: Normal joints with no swelling. Muscle tone is normal. LABS: Hgb 12.6, hct 39, WBC 12,300 normal differential, creatinine 0.5, BUN 31, potassium 3.8 ASSESSMENT: 1. Chronic respiratory failure with acute exacerbation of COPD 2. UTI which is being treated with Rocephin. PLAN: 1. Give steroids, NEBS and Antibiotics 2. The patient's appetite has improved. 3. The patient will be encouraged to eat. 4. Counseling for smoking done. CONDITION: Stable. TIME SPENT: More than 30 minutes. Plan and coordination of the patient's care discussed in the presence of nurse. JADEN
--- NOTE | 2021-08-04 13:25 | HP ---
DATE OF SERVICE: 07/20/21 REASON FOR HOSPITALIZATION: COPD exacerbation HISTORY OF PRESENT ILLNESS: 81 year old white female came to the emergency room with history of having cough, congestion and mild fever with weakness. [facility] is at the [place] [facility]. She was discharged from one of the [facility] after she suffered fracture of the pubic ramus on the left side. She has history of left hip replacement. Arterial blood gasses on 2 liters showed pO 2 59,pCO2 61, pH 7.46 with 92% saturation. On room air her saturation was less than 85%. PAST MEDICAL HISTORY/PAST SURGICAL HISTORY: Severe chronic lung disease Bilateral leg edema History of left hip repair 06/17 History of pulmonary nodule History of pneumonia, frequent. Hypertension Dyslipidemia Peripheral arterial disease Cardiomyopathy Chronic back pain, Pain management Osteoporosis History of heavy smoking Severe chronic lung disease, end stage REVIEW OF SYSTEMS: CONSTITUTIONAL: No night sweats. Fatigue. No fever or chills. Weakness. HEENT: Eyes: No visual changes. No eye pain. No eye discharge. ENT: No runny nose. No epistaxis. No sinus pain. No sore throat. No odynophagia. No ear pain. No congestion. RESPIRATORY: Cough, Congestion. No hemoptysis. Shortness of breath on exertion. CARDIOVASCULAR: No angina symptoms. No CHF symptoms. No atypical chest pain for CAD. No palpitations. No PND. No orthopnea. GASTROINTESTINAL: No abdominal pain. No nausea or vomiting. No diarrhea or constipation. No hematemesis. No hematochezia. Poor appetite. GENITOURINARY: No urgency. No frequency. No dysuria. No hematuria. No obstructive symptoms. No discharge. No pain. No significant abnormal bleeding. MUSCULOSKELETAL: No musculoskeletal pain. No joint swelling. No arthritis. Unable to walk because of fracture of the pelvis. NEUROLOGICAL: No headache. No neck pain. No syncope. No seizures. No dizziness. PSYCHIATRIC: Not anxious. No depression. No suicidal thoughts. No homicidal thoughts. SKIN: No rash. No lesions. No wounds. ENDOCRINE: No unexplained weight loss. No weight gain. HEMATOLOGIC/LYMPHATIC: No anemia. No purpura. No petechiae. No prolonged or excessive bleeding. No palpable lymph nodes. PERSONAL/FAMILY/SOCIAL HISTORY: The patient is . Heavy smoker. No alcohol abuse. MEDICATIONS: Albuterol Omeprazole Losartan Bisoprolol Amiodarone Apixaban. Atorvastatin Oxycodone Prednisone Spironolactone. Torsemide ALLERGIES: Codeine Ibuprofen Sulfa PHYSICAL EXAMINATION: GENERAL: The patient is oriented to time, place and person. VITAL SIGNS: Temperature 98,pulse 65, respiratory rate 15, blood pressure 125/53 and pulse ox 96%. HEENT: Head normocephalic, atraumatic. Eyes: Extraocular muscles are intact. Pupils are equal, round and reactive to light and accommodation. Ears: No lesions. Nose appeared normal. Throat: No exudate or erythema. NECK: Supple. No JVD, no carotid bruit. No lymphadenopathy or thyromegaly. LUNGS:Decreased breath sounds with mild wheeze. Clear to auscultation. Percussion note normal. Chest symmetrical. HEART: S1, S2, no S3. No murmur. Irregular. No cyanosis or clubbing. No ascites. Pulses: Feeble pulses both legs. ABDOMEN: Soft. Nontender. Bowel sounds active. No CVA tenderness. No mass felt. EXTREMITIES: No edema. Full range of motion of all extremities, equal. The patient has her feet covered to protect them from deterioration of early decubitus pressure sores. NEUROLOGIC: No focal deficit. Cranial nerves II through XII are grossly intact. No headache, no double vision or headache. SKIN: Not dry. Intact. Turgor - normal. LYMPHATIC: No palpable lymph nodes/no lymphedema. MUSCULOSKELETAL: Normal joints with no swelling. Muscle tone is normal. ASSESSMENT: 1. Acute bronchitis with chronic respiratory failure with severe chronic lung disease with history of heavy smoking. 2. Fracture pelvis, left ramus multiple fractures 3. History of atrial fibrillation 4. History of bilateral leg edema 5. History of severe hypertension 6. 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 7. Severe protein calorie malnutrition PLAN: 1. Start the patient on steroids 2. Antibiotics 3. NEBS treatment 4. Continue all the rest of the medications Atorvastatin, Apixaban, Amiodarone 5. The patient is going to be on Rocephin and Azithromycin 6. The patient wants DNR. She doesn't want any further workup done in a way of vascular studies, etc. 7. Counseling for smoking done. TIME SPENT: More than 70 minutes. MTDD
== END 2021-07-27 15:50 | DRG 189 ==
LOC: ED 17:18 → MEDSURG A 19:58
PROVIDERS: ADMIT Internal Medicine; ATTEND Internal Medicine
DX: Z91.11 Patient's noncompliance with dietary regimen; M19.90 Unspecified osteoarthritis, unspecified site; M79.606 Pain in leg, unspecified; Z51.81 Encounter for therapeutic drug level monitoring; J44.9 Chronic obstructive pulmonary disease, unspecified; Z91.19 Patient's noncompliance with other medical treatment and regimen; J44.1 Chronic obstructive pulmonary disease with (acute) exacerbation; J96.10 Chronic respiratory failure, unspecified whether with hypoxia or hypercapnia; Z74.01 Bed confinement status; G89.21 Chronic pain due to trauma; E46 Unspecified protein-calorie malnutrition; Z79.899 Other long term (current) drug therapy; Z91.14 Patient's other noncompliance with medication regimen; Z87.01 Personal history of pneumonia (recurrent); Z79.01 Long term (current) use of anticoagulants; Z72.0 Tobacco use; I48.0 Paroxysmal atrial fibrillation; I10 Essential (primary) hypertension; I42.9 Cardiomyopathy, unspecified; S32.82XA Multiple fractures of pelvis without disruption of pelvic ring, initial encounter for closed fracture; I73.9 Peripheral vascular disease, unspecified; J96.00 Acute respiratory failure, unspecified whether with hypoxia or hypercapnia

== ENCOUNTER 2021-07-31 02:32 | Inpatient (IN) ==
--- NOTE | 2021-07-31 02:58 | ED.PDOC ---
General ED Provider: Dr. GARRY HERRMANN Chief Complaint: Non-specific Complaint Stated Complaint: was recently here --sent [facility] with heavy vaginal and rectal bleeding--on eliquis for afib Time Seen by Provider: 07/31/21 02:36 Mode of Arrival: Ambulance Information Source: Family, Long-Term and EMT Exam Limitations: Dementia Primary Care Provider: FERNANDEZ RABAGO Nursing and Triage Documentation Reviewed and Agree: Yes Does patient meet sepsis criteria?: No System Inflammatory Response Syndrome: Not Applicable Sepsis Protocol: For patient's 13 years and over: Temp is 96.8 and below OR 101 and greater Pulse >90 BPM Resp >20/minute Acutely Altered Mental Status Are patient's symptoms suggestive of a new infection, such as: -Pneumonia -Skin, Soft Tissue -Endocarditis -UTI -Bone, Joint Infection -Implantable Device -Acute Abdominal Infection -Wound Infection -Meningitis -Blood Stream Catheter Infection -Unknown Complaint Exam Complaint/Exam Patient Complains of: Reports Vaginal discharge Symptoms Are: Resolved Initial Severity: Mild Current Severity: Moderate Location of Pain: Reports None Associated Signs and Symptoms: Reports Vaginal bleeding; Denies Diaphoresis, Back pain, Fever, Hematuria, Dysuria, Constipation, Blood in stool, Rectal pain, Appetite change, Nausea, Vomiting, Decreased urine output, Increased urine frequency, Increased thirst, Decreased activity, Lethargy, Abdominal Pain, Bubble bath use, Vaginal discharge, Genital swelling, Genital blisters or Retained foreign body RH Status: Unknown Abdominal Findings: Present None Review of Systems Review Of Systems Constitutional: Reports No symptoms Eyes: Reports No symptoms Ears, Nose, Mouth, Throat: Reports No symptoms Respiratory: Reports No symptoms Cardiac: Reports No symptoms GI: Reports No symptoms Musculoskeletal: Reports No symptoms Skin: Reports No symptoms Neurological: Reports Cognitive dysfunction Endocrine: Reports No symptoms Hematologic/Lymphatic: Reports No symptoms All Other Systems: Reviewed and Negative PFSH Medical History Anxiety COPD (chronic obstructive pulmonary disease) Hypertension Pneumonia Social History Smoking and tobacco status: Former smoker Surgical History History of cholecystectomy History of hemorrhoidectomy History of hysterectomy Female Reproductive History Menstrual Hx Hysterectomy: Yes Hx Tubal Ligation: No Physical Exam Physical Exam Appearance: Reports Thin Ill-appearing: None Pain Distress: None Eyes: Reports SANDRA, EOMI and Conjunctiva clear ENT: Reports Ears normal, Nose normal and Oropharynx normal Neck: Supple Respiratory: Reports Airway patent, Breath sounds clear and Breath sounds equal Cardiovascular: Reports RRR, Pulses normal and No rub GI/: Reports Soft, Nontender, No masses and Bowel sounds normal Musculoskeletal: Reports Normal strength, ROM intact, No edema and No calf tenderness Skin: Reports Warm, Dry and Normal color Neurological: Reports Sensation intact, Motor intact, Reflexes intact, Cranial nerves intact and Alert Psychiatric: Reports Affect appropriate and Mood appropriate Interpretation Radiology Interpretation Radiology Interpretation By: Radiologist Radiology Results: Positive Exam Interpreted: CT Scan EKG Interpretation Time of EKG #2: 03:29 Rate: Normal and Tachy Rhythm: Sinus Ectopy: None [place]: NL (sinus tach) EKG Interpretation: sinus tachy Physician Notification Case Discussed Physician Notified: dr rabago Time of Notification: 03:30 Critical Care Note Critical Care Note Total Critical Care Time (mins): 30 Course Course Hematology/Chemistry: 07/31/21 02:55 07/31/21 02:55 Orders, Labs, Meds: Lab Review 07/31/21 07/31/21 07/31/21 02:55 02:55 02:55 WBC 17.51 H RBC 4.68 Hgb 13.7 Hct 41.1 MCV 87.8 MCH 29.3 MCHC 33.3 RDW Coeff of [place] 17.9 H Plt Count 159 Neutrophils % (Manual) 94.0 H Lymphocytes % (Manual) 2.0 L Monocytes % (Manual) 2.0 Myelocytes % 2.0 H Anisocytosis Not present PT 13.2 H INR 1.29 Sodium 136.0 Potassium 6.45 H* Chloride 93.0 L Carbon Dioxide 30.0 Anion Gap 19.45 BUN 107.4 H* Creatinine 3.55 H* Estimated GFR (MDRD) 12.00 BUN/Creatinine Ratio 30.25 Glucose 57.9 L Lactic Acid Calcium 8.24 L Total Bilirubin 1.50 H AST 36.5 H ALT 32.3 Alkaline Phosphatase 208.6 H Total Protein 5.68 L Albumin 3.08 L Globulin 2.60 Albumin/Globulin Ratio 1.18 Urine Color Urine Clarity Urine pH Ur Specific [place] Urine Protein Urine Glucose (UA) Urine Ketones Urine Blood Urine Nitrite Urine Bilirubin Urine Urobilinogen Ur Leukocyte Esterase Urine Microscopic RBC Urine Microscopic WBC Ur Squamous Epith Cells Amorphous Sediment Urine Bacteria Urine Yeast 07/31/21 07/31/21 02:55 02:55 WBC RBC Hgb Hct MCV MCH MCHC RDW Coeff of [place] Plt Count Neutrophils % (Manual) Lymphocytes % (Manual) Monocytes % (Manual) Myelocytes % Anisocytosis PT INR Sodium Potassium Chloride Carbon Dioxide Anion Gap BUN Creatinine Estimated GFR (MDRD) BUN/Creatinine Ratio Glucose Lactic Acid 1.59 Calcium Total Bilirubin AST ALT Alkaline Phosphatase Total Protein Albumin Globulin Albumin/Globulin Ratio Urine Color Dark Urine Clarity Cloudy Urine pH 5.0 Ur Specific [place] 1.025 Urine Protein Negative Urine Glucose (UA) Negative Urine Ketones Negative Urine Blood 1+ H Urine Nitrite Positive H Urine Bilirubin 1+ H Urine Urobilinogen 0.2 Ur Leukocyte Esterase 1+ H Urine Microscopic RBC 2-5 Urine Microscopic WBC 5-10 Ur Squamous Epith Cells Not present Amorphous Sediment Trace Urine Bacteria 1+ Urine Yeast 3+ Orders Category Date Time Status EKG-(ED ONLY) Stat CARDIO 07/31/21 02:43 Ordered ED WOOD PANEL INSPECTOR APPLIED .ONCE EMERGENCY 07/31/21 02:36 Active ED IV/MEDIPORT/POWERPORT .ONCE EMERGENCY 07/31/21 02:36 Active BLOOD CULTURE (ED ONLY) Stat LAB 07/31/21 02:55 Received CBC W/ AUTO DIFF Stat LAB 07/31/21 02:55 Completed COMPREHENSIVE METABOLIC PANEL Stat LAB 07/31/21 02:55 Completed LACTIC ACID Stat LAB 07/31/21 02:55 Completed MANUAL DIFFERENTIAL Stat LAB 07/31/21 02:55 Completed PT WITH INR Stat LAB 07/31/21 02:55 Completed RESPIRATORY PANEL 2.1 (PCR) Stat LAB 07/31/21 02:55 Received URINALYSIS C & S IF INDICATED Stat LAB 07/31/21 02:55 Completed URINE CULTURE Stat LAB 07/31/21 02:55 Received 0.9 % Sodium Chloride [Saline Flush] MEDS 07/31/21 02:36 Active 1 syr IVF PRN PRN CT ABDOMEN/PELVIS WO CONTRAST Stat RADS 07/31/21 02:36 Completed Medications Generic Name Dose Route Start Last Admin Trade Name Freq PRN Reason Stop Dose Admin Sodium Chloride 1 syr 07/31/21 02:36 0.9% Sodium Chloride 10 Ml Disp.Syrin IVF PRN PRN To flush IV Vital Signs: Temp Pulse Resp BP Pulse Ox 07/31/21 02:33 98.0 F 100 H 28 H 87/66 L 95 Discharge Plan Discharge Patient Disposition: ADMITTED INPATIENT Discharge Problem: LILIA (acute kidney injury), Acute hyperkalemia Prescriptions: No Action omeprazole 20 MG capsule,delayed release(DR/EC) 20 mg PO DAILY 0RF albuterol sulfate [ProAir HFA] 1 PUFF HFA aerosol inhaler 1 puff INH DIRECTED PRN (Reason: COPD) 0RF losartan-hydrochlorothiazide 1 EACH tablet 50 tab PO DAILY 0RF bisoprolol fumarate 5 MG tablet 5 mg PO QPM 0RF atorvastatin 20 mg Tablet 20 mg PO BEDTIME 0RF nicotine [Nicoderm] 14 mg/24 hr Patch 24 Hour 14 mg topical DAILY 0RF torsemide 20 mg Tablet 20 mg PO DAILY 0RF amiodarone 200 mg Tablet 200 mg PO BID 0RF Colace 50 mg Capsule 100 mg PO BID 0RF spironolactone [Aldactone] 25 mg Tablet 25 mg PO DAILY 0RF Calciferol 50,000 unit Tablet 50,000 unit PO QWEEK 0RF Rx Instructions: every week on saturday oxycodone 5 mg Tablet 5 mg PO Q6H PRN (Reason: Pain) 0RF Eliquis 5 mg Tablet 5 mg PO BID 0RF PreserVision AREDS-2 250-90-40-1 mg Capsule 1 tab PO DAILY 0RF budesonide-formoterol [Symbicort] 160-4.5 mcg/actuation Hfa Aerosol Inhaler 2 puff INHALATION BID Qty: 2 0RF cefdinir 300 mg Capsule 300 mg PO BID Qty: 14 0RF diltiazem HCl 90 mg Tablet 90 mg PO BID Qty: 60 0RF prednisone 20 mg Tablet 20 mg PO DAILY Qty: 5 0RF ED Provider: GARRY GAR Condition: Poor Physician Progress Note: [her son shiraz wants only supportive and comfort measures and does not want transfer--notified dr rabago]
[2021-07-31 03:02] LABS: HEMATOCRIT 41.1 % (37.0-47.0); HEMOGLOBIN 13.7 g/dl (12.0-16.0); MEAN CORPUSCULAR HEMOGLOBIN 29.3 pg (27.0-31.0); MEAN CORPUSCULAR HGB CONC 33.3 (31.8-35.4); MEAN CORPUSCULAR VOLUME 87.8 fl (81.0-99.0); PLATELET COUNT 159 10^3/uL (140-440); RDW COEFFICIENT OF VARIATION 17.9 % (11.6-14.8); RED BLOOD COUNT 4.68 10^6/ul (4.20-5.40); WHITE BLOOD COUNT 17.51 K/ul (4.6-10.2)
[2021-07-31 03:12] LABS: BILIRUBIN,URINE 1+ (NEGATIVE); CLARITY,URINE Cloudy (CLEAR); COLOR,URINE Dark (YELLOW); GLUCOSE, URINE (UA) Negative (NEGATIVE); KETONES,URINE Negative (NEGATIVE); LEUKOCYTE ESTERASE ,URINE 1+ (NEGATIVE); NITRITE,URINE Positive (NEGATIVE); PROTEIN,URINE Negative (NEGATIVE); URINE, BLOOD 1+ (NEGATIVE); UROBILINOGEN,URINE 0.2 (0.2)
[2021-07-31 03:18] LABS: ALANINE AMINOTRANSFERASE 32.3 U/L (0-35); ALBUMIN 3.08 g/dL (3.5-5.0); ALKALINE PHOSPHATASE 208.6 U/L (53-141); ANISOCYTOSIS NOT PRESENT (NOT PRESENT); ASPARTATE AMINO TRANSFERASE 36.5 U/L (14-36); BILIRUBIN,TOTAL 1.5 mg/dL (0.2-1.3); BORDETELLA PARAPERTUSSIS (PCR) NOT DETECTED (NOT DETECT); BORDETELLA PERTUSSIS (PCR) NOT DETECTED (NOT DETECT); CALCIUM 8.24 mg/dL (8.4-10.2); CHLAMYDIA PNEUMONIAE (PCR) NOT DETECTED (NOT DETECT); CORONAVIRUS 229E (PCR) NOT DETECTED (NOT DETECT); CORONAVIRUS HKU1 (PCR) NOT DETECTED (NOT DETECT); CORONAVIRUS NL63 (PCR) NOT DETECTED (NOT DETECT); CORONAVIRUS OC43 (PCR) NOT DETECTED (NOT DETECT); GLUCOSE 57.9 mg/dL (74-106); HUMAN METAPNEUMOVIRUS (PCR) NOT DETECTED (NOT DETECT); HUMAN RHINOVIRUS/ENTEROV (PCR) NOT DETECTED (NOT DETECT); INFLUENZA B (PCR) NOT DETECTED (NOT DETECT); MYCOPLASMA PNEUMONIAE (PCR) NOT DETECTED (NOT DETECT); PARAINFLUENZA VIRUS 1 (PCR) NOT DETECTED (NOT DETECT); PARAINFLUENZA VIRUS 2 (PCR) NOT DETECTED (NOT DETECT); PARAINFLUENZA VIRUS 3 (PCR) NOT DETECTED (NOT DETECT); PARAINFLUENZA VIRUS 4 (PCR) NOT DETECTED (NOT DETECT); PROTHROMBIN TIME 13.2 SEC (9.3-11.0); RESPIRATORY SYNCYTIAL V (PCR) NOT DETECTED (NOT DETECT); SARS_COV_2 (PCR) NOT DETECTED (NOT DETECT); SQUAMOUS EPITHELIAL CELL,UR NOT PRESENT (0-5); TOTAL PROTEIN 5.68 g/dL (6.3-8.2)
--- NOTE | 2021-07-31 03:19 | CT ---
Exam: CT of the abdomen and pelvis without contrast History: Pelvic hemorrhage Technique: [address] of the abdomen and pelvis without contrast FINDINGS: Small bilateral pleural effusions with adjacent atelectasis. Emphysema in the lung bases. Prominent atelectasis versus consolidation in the left lung base with endobronchial filling defects . Small pericardial effusion. There is a retention of contrast in the kidneys with moderate bilater al hydronephrosis and hydroureter. Atherosclerotic calcification of the aorta without aneurysm. No inflammatory changes are seen. Large rectal stool retention. Cross-sectional stool diameter 10 x 9 cm. Trace pelvic fluid. Fuentes catheter decompresses urinary bladder. Possible perivesicular stranding. No acute findings of the p elvic ring. Left obturator ring fracture with some reactive changes. Left sacral ala fracture. Lef t hip transfemoral nail. Impression: 1. Bilateral hydronephrosis and hydroureter likely secondary to obstruction from large colonic stool . 2. Possible perivesicular inflammatory stranding in the urinary bladder. Correlate for cystitis. 3. Small ascites 4. Small bilateral pleural effusions with adjacent consolidative change. Endobronchial filling defe cts are present bilaterally but greatest in the left lower lobe. All CT scans are performed using dose optimization techniques as appropriate to the performed exam an d include at least one of the following: Automated exposure control, adjustment of the mA and/or kV according t o size, and the use of iterative reconstruction technique.
[2021-07-31 03:23] LABS: AMORPHOUS SEDIMENT,UR TRACE (NOT PRESENT); BACTERIA,URINE 1+ (NOT PRESENT); YEAST,URINE 3+ (NOT PRESENT)
[2021-07-31 03:25] LABS: BLOOD UREA NITROGEN 107.4 mg/dL (7-17); CREATININE 3.55 mg/dL (0.60-1.30); POTASSIUM 6.45 mmol/L (3.5-5.1)
[2021-07-31] MEDS ORDERED: DEXTROSE 50%-WATER ABBOJECT IVP STA (03:32)
[2021-07-31] MEDS ORDERED: KAYEXALATE SUSP RC STA (03:35)
[2021-07-31] MEDS ORDERED: OXYCODONE PO PRN (03:38)
[2021-07-31 03:54] LABS: ADENOVIRUS (PCR) NOT DETECTED (NOT DETECT)
[2021-07-31] MEDS ORDERED: HUMULIN R IV STA (03:55)
[2021-07-31] MEDS ORDERED: SODIUM CHLORIDE 1,000 ML IV SCH (04:00)
[2021-07-31 05:04] VITALS: BMI 20.5
[2021-07-31] MEDS: VENTOLIN HFA (PER PUFF-WITH SPACER) IH SCH ×2 (05:53→17:25)
[2021-07-31] MEDS ORDERED: ROCEPHIN 1 GM/50 ML D5W 1 GM/50 ML BAG IV SCH (09:00)
[2021-07-31] MEDS ORDERED: DULCOLAX RC SCH (09:00)
[2021-07-31] MEDS ORDERED: PRILOSEC PO SCH (09:00)
[2021-07-31] MEDS ORDERED: VENTOLIN HFA (PER PUFF-WITH SPACER) IH SCH (09:00)
[2021-07-31] MEDS ORDERED: SODIUM CHLORIDE IV SCH (09:00)
[2021-07-31] MEDS ORDERED: MERREM IV SCH (09:00)
[2021-07-31] MEDS ORDERED: PREDNISONE PO SCH (09:00)
[2021-07-31] MEDS ORDERED: DEMADEX PO SCH (09:00)
[2021-07-31] MEDS ORDERED: ATIVAN IVP PRN (09:12)
[2021-07-31] MEDS: MORPHINE 2 MG/ML VIAL IVP PRN ×3 (09:40→19:50)
[2021-07-31] MEDS: SODIUM CHLORIDE 1,000 ML IV SCH ×2 (10:17→18:21)
[2021-07-31] MEDS: CARDIZEM PO SCH ×2 (10:21→20:57)
[2021-07-31] MEDS: COLACE PO SCH ×2 (10:21→20:57)
[2021-07-31] MEDS: CORDARONE PO SCH ×2 (10:22→20:57)
[2021-07-31] MEDS: ELIQUIS PO SCH ×2 (10:23→20:56)
[2021-07-31] MEDS: SYMBICORT 160-4.5 MCG INHALER IH SCH ×2 (10:24→20:56)
--- NOTE | 2021-07-31 11:01 | PCM.PROG ---
Attending Provider: ATTENDING PROVIDER: Dr. FERNANDEZ VILLAGOMEZ This patient is seen with Reshma Zhao, Nurse Practitioner. DATE OF SERVICE: 07/31/21 SUBJECTIVE: This 81 year old /WHITE F was hospitalized 07/31/21. The patient is responsive but confused. Cachetic. Severe renal failure. Son states in ER that he would like comfort care. WE will need to discuss with him this morning. Her prognosis is poor given multiple medical conditions. I do believe palliative care is the best option at this point. REVIEW OF SYSTEMS: CONSTITUTIONAL: No night sweats. No fatigue, malaise, lethargy. No fever or chills. Weakness. HEENT: Eyes: No visual changes. No eye pain. No eye discharge. ENT: No runny nose. No epistaxis. No sinus pain. No odynophagia. No congestion. RESPIRATORY: No cough, no congestion. No hemoptysis. No shortness of breath. CARDIOVASCULAR: No angina symptoms. No CHF symptoms. No atypical chest pain for CAD. No palpitations. No orthopnea.. GASTROINTESTINAL: Abdominal distention. No nausea or vomiting. Constipation. No hematemesis. No hematochezia. GENITOURINARY: No urgency. No frequency. No dysuria. No hematuria. No obstructive symptoms. No discharge. No pain. No significant abnormal bleeding. MUSCULOSKELETAL: No musculoskeletal pain; no joint swelling. Generalized pain. NEUROLOGICAL: Awake, alert, oriented to time, place and person. No headache. No neck pain. No syncope. No seizures. No dizziness. PSYCHIATRIC: Not anxious. No depression. No suicidal thoughts. No homicidal thoughts. SKIN: No rash. No lesions. No wounds. ENDOCRINE: No unexplained weight loss. No weight gain. HEMATOLOGIC/LYMPHATIC: No anemia. No purpura. No petechiae. No prolonged or excessive bleeding. No palpable lymph nodes. PHYSICAL EXAMINATION: GENERAL: The patient is awake, alert and oriented, lying in bed in no distress. VITAL SIGNS: Temperature 97.6 F, Pulse 62, Respiratory Rate 18, BP 89/66, Pulse Ox 93% HEENT: Head normocephalic, atraumatic. Eyes: Extraocular muscles are intact. Pupils are equal, round and reactive to light and accommodation. Ears: No lesions. Nose appeared normal. Throat: No exudate or erythema. NECK: Supple. No JVD, no carotid bruit. No lymphadenopathy or thyromegaly. LUNGS: Diminished breath sounds. Clear to auscultation. Percussion note normal. Chest symmetrical. HEART: S1, S2, no S3. No murmurs. No cyanosis or clubbing. No ascites. Pulses: No pulses bilateral lower extremities. ABDOMEN: Soft. Non-tender. Significant abdominal distention and tenderness. Bowel sounds active. No CVA tenderness. No mass felt. EXTREMITIES: Leg edema. Full range of motion of all extremities, equal. NEUROLOGIC: No focal deficit. Cranial nerves II through XII are grossly intact. No headache. No double vision. SKIN: Not dry. Intact. Turgor-normal. LYMPHATIC: No palpable lymph nodes/no lymphedema. MUSCULOSKELETAL: Normal joints with no swelling. Muscle tone is normal. LAB REVIEW: 07/31/21 02:55 07/31/21 02:55 07/31/21 02:55: Urine Color Dark, Urine Clarity Cloudy, Urine pH 5.0, Ur Specific [place] 1.025, Urine Protein Negative, Urine Glucose (UA) Negative, Urine Ketones Negative, Urine Blood 1+ H, Urine Nitrite Positive H, Urine Bilirubin 1+ H, Urine Urobilinogen 0.2, Ur Leukocyte Esterase 1+ H, Urine Microscopic RBC 2-5, Urine Microscopic WBC 5-10, Ur Squamous Epith Cells Not present, Amorphous Sediment Trace, Urine Bacteria 1+, Urine Yeast 3+ 07/31/21 02:55: Adenovirus (PCR) Not detected, B. pertussis DNA (PCR) Not detected, B.parapertussis DNA PCR Not detected, C. pneumoniae DNA (PCR) Not detected, Coronavirus OC43 (PCR) Not detected, Coronavirus HKU1 (PCR) Not detected, Coronavirus 229E (PCR) Not detected, Coronavirus NL63 (PCR) Not d etected, Human Metapneumovir PCR Not detected, Influenza Type A (PCR) Not detected, Influenza B (RT-PCR) Not detected, M. pneumoniae (PCR) Not detected, Parainfluenza 1 (PCR) Not detected, Parainfluenza 2 (PCR) Not detected, Parainfluenza 3 (PCR) Not detected, Parainfluenza 4 (PCR) Not detected, RSV (PCR) Not detected, Entero/Rhino (PCR) Not detected, SARS-CoV-2 (PCR) Not detected 07/31/21 02:55: Lactic Acid 1.59 07/31/21 02:55: Sodium 136.0, Potassium 6.45 H*, Chloride 93.0 L, Carbon Dioxide 30.0, Anion Gap 19.45, BUN 107.4 H*, Creatinine 3.55 H*, Estimated GFR (MDRD) 12.00, BUN/Creatinine Ratio 30.25, Glucose 57.9 L, Calcium 8.24 L, Total Bilirubin 1.50 H, AST 36.5 H, ALT 32.3, Alkaline Phosphatase 208.6 H, Total Protein 5.68 L, Albumin 3.08 L, Globulin 2.60, Albumin/Globulin Ratio 1.18 07/31/21 02:55: PT 13.2 H, INR 1.29 07/31/21 02:55: WBC 17.51 H, RBC 4.68, Hgb 13.7, Hct 41.1, MCV 87.8, MCH 29.3, MCHC 33.3, RDW Coeff of [place] 17.9 H, Plt Count 159, Neutrophils % (Manual) 94.0 H , Lymphocytes % (Manual) 2.0 L, Monocytes % (Manual) 2.0, Myelocytes % 2.0 H, Anisocytosis Not present ASSESSMENT: Please see below. 1. Acute renal failure 2. Bilateral hydronephrosis 3. Hyperkalemia 4. Likely UTI 5. Hypotension PLAN: 1. We are calling the son to discuss palliative treatment otherwise will do ABG this morning. 3. Kayexalate enema 3. Increase fluids to 125cc 4. ABG on 2 liters 5. Repeat CMP 6. Pharmacy to dose Merrem IV 7. Blood culture 8. Prognosis is very poor due to the patient's multiple medical conditions. At this point palliative care would be the best option, we will discuss with the family. Plan and coordination of the patient's care discussed in the presence of Ccnp and nurse. SCRIBED BY: HOMERO CONTRERAS, Damage Assessor scribed while in presence of service performed by Dr. Villagomez/Reshma Zhao APRN on 07/31/21 ([id number])
[2021-07-31 14:18] VITALS: BP 90/66
[2021-07-31] MEDS ORDERED: ZEBETA PO SCH (17:00)
[2021-07-31] MEDS ORDERED: LIPITOR PO SCH (21:00)
[2021-07-31 21:33] VITALS: TEMP 99.8
--- NOTE | 2021-08-01 03:22 | PCM.PROG ---
Time of : 21:56 Preliminary Cause of : cardiorespiratory arrest
[2021-08-01] MEDS ORDERED: ROCEPHIN 1 GM/50 ML D5W 1 GM/50 ML BAG IV SCH (09:00)
--- NOTE | 2021-08-01 11:43 | PN ---
DATE OF SERVICE: 07/31/21 ADMIT NOTE SUBJECTIVE: The patient was hospitalized through the emergency room with inability to eat, confusion, weakness and fatigue. The patient was dehydrated and was in acute renal failure with creatinine close to 4. The patient has severe chronic lung disease, severe peripheral arterial disease, atrial fibrillation. She was seen and examined with the Nurse Practitioner. The patient is going to be on IV fluids. She is going to be watched for fluid overload. Cardiovascular status seems to be stable of now. She was seen by vascular surgeon for her severe peripheral arterial disease and the patient has decided not to go back. Practically the patient has given up. The son is present in the room. The patient is a DNR. She is ready for Hospice. TIME SPENT: More than 30 minutes. Plan and coordination of the patient's care discussed in the presence of nurse. JADEN
[2021-08-06] MEDS ORDERED: ERGOCALCIFEROL 50000 UNIT PO SCH (05:22)
[2021-08-06] MEDS ORDERED: DRISDOL PO SCH (09:00)
--- NOTE | 2021-08-22 14:06 | HP ---
DATE OF SERVICE: 07/31/21 REASON FOR HOSPITALIZATION/ HISTORY OF PRESENT ILLNESS: 81 year old female who was just recent discharged on and had seen vascular on Saturday for severe peripheral arterial disease. She is a resident of the [facility] and they have complained of heavy vaginal and rectal bleeding today and she is on Eliquis for atrial fibrillation. PAST MEDICAL HISTORY: Recent respiratory failure with pneumonitis Oxygen dependent Severe chronic lung disease with history of heavy smoking Chronic respiratory failure Recent fracture of pubic ramus left sided closed Recent UTI Hypertension Paroxysmal Atrial fibrillation Severe peripheral arterial disease with necrotic pressure sores on both heels. Bilateral leg pain Left hip fracture, 06/17/21 History of pulmonary nodule Severe dyslipidemia Hypertrophic cardiomyopathy Chronic back pain Osteoporosis Protein Chloric malnutrition Noncompliance with medications, lifestyle and followup PAST SURGICAL HISTORY: Left hip 06/17/21 REVIEW OF SYSTEMS: CONSTITUTIONAL: No night sweats. Lethargy. No fever or chills. HEENT: Eyes: No visual changes. No eye pain. No eye discharge. ENT: No runny nose. No epistaxis. No sinus pain. No sore throat. No odynophagia. No ear pain. No congestion. RESPIRATORY: No cough, no congestion. No hemoptysis. Shortness of breath. CARDIOVASCULAR: No angina symptoms. No CHF symptoms. No atypical chest pain for CAD. No palpitations. No PND. No orthopnea. GASTROINTESTINAL: No abdominal pain. No nausea or vomiting. No diarrhea or constipation. No hematemesis. No hematochezia. GENITOURINARY: No urgency. No frequency. No dysuria. No hematuria. No obstructive symptoms. No discharge. No pain. No significant abnormal bleeding. MUSCULOSKELETAL: No musculoskeletal pain. No joint swelling. No arthritis. NEUROLOGICAL: No headache. No neck pain. No syncope. No seizures. No dizziness. The patient is confused. PSYCHIATRIC: Not anxious. No depression. No suicidal thoughts. No homicidal thoughts. SKIN: No rash. No lesions. No wounds. ENDOCRINE: No unexplained weight loss. No weight gain. HEMATOLOGIC/LYMPHATIC: No anemia. No purpura. No petechiae. No prolonged or excessive bleeding. No palpable lymph nodes. PERSONAL/FAMILY/SOCIAL HISTORY: She is . Recently lived at home until her of her pubic fracture and is now is at [facility]. Was formally a heavy smoker until most recently. No alcohol or illicit drug use. MEDICATIONS: Omeprazole 20mg PO daily Albuterol sulfate 1 puff BID Losartan-Hydrochlorothiazide 50mg PO daily Bisoprolol Fumarate 5mg PO QPM NIcoderm Topical daily PreserVision one tablet PO daily Vitamin D2 50,000 unit PO Q weekly Oxycodone 5mg PO Q 6 hours PRN Colace 100mg PO BID Amiodarone 200mg PO BID Atorvastatin 20mg PO BEDTIME Eliquis 5mg PO BID Aldactone 25mg PO daily Torsemide 20mg PO daily Cefdinir 300mg pO BID Diltiazem 90mg PO BID Symbicort 2 puff inhalation BID Prednisone 20mg PO daily Bisacodyl 10mg WA daily Fleet Enema 118ml WA daily PRN Milk of Magnesium 400mg PO daily PRN ALLERGIES: Codeine Ibuprofen Sulfa PHYSICAL EXAMINATION: GENERAL: The patient is not very alert and not oriented. Responsive to painful stimuli only. VITAL SIGNS: Temperature 98, heart rate 100, respiratory rate 28, blood pressure 87/66 and pulse ox 95% on 2 liters. HEENT: Head normocephalic, atraumatic. Eyes: Extraocular muscles are intact. Pupils are equal, round and reactive to light and accommodation. Ears: No lesions. Nose appeared normal. Throat: No exudate or erythema. NECK: Supple. No JVD, no carotid bruit. No lymphadenopathy or thyromegaly. LUNGS:Severely diminished breath sounds. Clear to auscultation. Percussion note normal. Chest symmetrical. HEART: S1, S2, no S3. No murmur. No cyanosis or clubbing. No ascites. Pulses: Dorsalis pedis and posterior tibial pulses +1 to +2 bilaterally. ABDOMEN: Soft. Nontender. Bowel sounds active. No CVA tenderness. No mass felt. Very distended abdomen with guarding upon palpation. EXTREMITIES: Bilateral leg edema. Full range of motion of all extremities, equal. NEUROLOGIC: No focal deficit. Cranial nerves II through XII are grossly intact. No headache, no double vision or headache. SKIN: Not dry. Intact. Turgor - normal. LYMPHATIC: No palpable lymph nodes/no lymphedema. MUSCULOSKELETAL: Normal joints with no swelling. Muscle tone is normal. LABS: WBC 17.51, hgb 13.7, hct 41.1, plt count 159, sodium 136, potassium 6.45 and BUN 107, creatinine 3.55 and glucose 57. Alkaline phosphatase 208, total protein 5.6, AST 36, ALT 32, total bilirubin 1.5. Urine 3+ yeast, 1+ bacteria, positive nitrates, 1+ blood. CT of the abdomen and pelvis shows bilateral hydronephrosis and hydroureter likely secondary to obstruction from large colonic stool possible perivesicular inflammatory straining in the urinary bladder, small ascites, bilateral pleural effusion with adjacent consolidative change. Endobronchial filling defects. ASSESSMENT: 1. Acute renal failure 2. Acute hyperkalemia 3. Hypotension 4. Multiple system organ failure 5. Urinary tract infection 6. Acute respiratory failure PLAN: 1. We will admit 2. The patient's son who is her power of deputy attorney general wants only supportive and comfort care. He does not wish for her to be transferred. We will admit with comfort measures. I have confirmed with him and he does not want any sort of attempts for any sort of evacuation of stool. He just wants to keep her comfortable. I did explain to him that I do believe that she is in multi system organ failure. According to him she hasn't been eating for the past several days and has given up. 3. We will start with Morphine 1-2mg Q 2-3 PRN 4. Ativan 1mg IV Q 4-6 hours PRN 5. Oxygen at needed 6. Normal saline IV at 100cc an hour 7. We will provide additional comfort measures as needed. TIME SPENT: More than 70 minutes. MTDD
--- NOTE | 2021-08-22 14:19 | DS ---
DATE OF SERVICE: 07/31/21 FINAL DIAGNOSIS: 1. Acute renal failure 2. Acute respiratory failure 3. Severe endstage COPD 4. Urinary tract infection 5. Severe peripheral arterial disease. HOSPITAL COURSE: 81 year old white female who has been a resident at [facility]. We discharged her last week with severe peripheral arterial disease. She followed by vascular on near occlusion of both lower extremity arteries. She saw vascular on Saturday. She was brought to the emergency room as the long-term reported that she had active vaginal and rectal bleeding. Once being brought to the emergency room it was found she was to be very lethargic. She was not alert or oriented. The son was present. he is her POA. He is here from [place]. He stated that she did not wish for any extraordinary measures to be taken that after she saw vascular on Saturday she said that she had given up. She quit eating and drinking and he wants comfort measures only. CT of abdomen did not that she had hydronephrosis of both kidneys, stool impaction and possible UTI. She had respiratory failure and was found to be in acute renal failure with elevated BUN of 105. We did start normal saline IV fluids and started her on IV antibiotics however she is not very responsive only to painful stimuli. We started her on Morphine 1-2mg on the morning of 07-31-21 along with Ativan IV. The son stayed with her and she passed peacefully in the morning from acute renal failure, acute respiratory failure with multiple other medical conditions including severe endstage COPD, Urinary tract infection and Severe peripheral arterial disease. TIME SPENT: More than 60 minutes. JADEN
== END 2021-07-31 23:25 | disposition expired | DRG 682 ==
LOC: ED 02:32 → MEDSURG A 04:06
PROVIDERS: ADMIT Internal Medicine; ATTEND Internal Medicine
DX: R53.83 Other fatigue; J44.9 Chronic obstructive pulmonary disease, unspecified; M35.81 Multisystem inflammatory syndrome; N17.9 Acute kidney failure, unspecified; J96.00 Acute respiratory failure, unspecified whether with hypoxia or hypercapnia; I73.9 Peripheral vascular disease, unspecified; I95.9 Hypotension, unspecified; E87.5 Hyperkalemia; Z20.822 Contact with and (suspected) exposure to COVID-19; Z51.81 Encounter for therapeutic drug level monitoring; N39.0 Urinary tract infection, site not specified; R64 Cachexia; Z79.899 Other long term (current) drug therapy